=== PATIENT | female | born 1945 | race Caucasian/White ===

== ENCOUNTER 2019-09-04 20:34 | Inpatient (IN) | payer MEDICARE, SELFPAY ==
[2019-09-04 20:52] VITALS: BP 136/73; PULSE 111; RESP 20; TEMP 37.1; O2SAT 96; BMI 27.4
--- NOTE | 2019-09-04 21:06 | ECG_ITS ---
Measurements Intervals [place] Rate: 88 P: 8 IN: 164 QRS: -15 QRSD: 81 T: 3 QT: 353 QTc: 427 SINUS RHYTHM LOW QRS VOLTAGE IN PRECORDIAL LEADS [QRS DEFLECTION < 1.0 mV IN CHEST LEADS] POSSIBLE ANTERIOR MYOCARDIAL INFARCTION , PROBABLY OLD [30 ms Q WAVE IN V3/V4, OR R < 0.2 mV IN V4] INFERIOR MYOCARDIAL INFARCTION , PROBABLY OLD [40+ ms Q WAVE AND/OR ST/T ABNORMALITY IN II/aVF] Compared to ECG 09/06/2018 23:23:24 Low QRS voltage now present First degree AV block no longer present Myocardial infarct finding still present Electronically Signed On 09-05-2019 11:04:56 CDT by Joo Hinojosa MD [email or web address]
--- NOTE | 2019-09-04 21:07 | CTR_ITS ---
PROCEDURE INFORMATION: Exam: CT Abdomen And Pelvis With Contrast Exam date and time: 09/04/2019 9:39 PM Age: 74 years old Clinical indication: Nausea and vomiting; Patient HX: C/O upper abd pain w n/v and fever; Additional info: Abdominal pain, fever TECHNIQUE: Imaging protocol: Computed tomography of the abdomen and pelvis with intravenous contrast. Radiation optimization: All CT scans at this facility use at least one of these dose optimization techniques: automated exposure control; mA and/or kV adjustment per patient size (includes targeted exams where dose is matched to clinical indication); or iterative reconstruction. Contrast material: VISI 320; Contrast volume: 95 ml; Contrast route: 20G; [place] [facility] [place] 2-3 [place] 10/02/2018 1:52 PM RADIATION DOSE METRICS: Total DLP: 546.67 mGy-cm FINDINGS: Lungs: Right middle lobe 3.1 mm nodule suspected. Liver: Normal. No mass. Gallbladder and bile ducts: Normal. No calcified stones. No ductal dilation. Pancreas: Normal. No ductal dilation. Spleen: Normal. No splenomegaly. Adrenals: Normal. No mass. Kidneys and ureters: Bilateral benign renal cysts no follow up necessary. Stomach and bowel: Small bowel loops appear borderline dilated to 3 cm with fluid levels likely reflecting obstruction without transition point. Diverticulosis without diverticulitis. Moderate hiatal hernia. Appendix: No evidence of appendicitis. Intraperitoneal space: Unremarkable. No free air. No significant fluid collection. Vasculature: Unremarkable. No abdominal aortic aneurysm. Lymph nodes: Unremarkable. No enlarged lymph nodes. Bladder: Unremarkable as visualized. Reproductive: Unremarkable as visualized. Bones/joints: Unremarkable. No acute fracture. Soft tissues: Unremarkable. CT/CT abdomen pelvis w con* [id number] IMPRESSION: 1. Small bowel loops appear borderline dilated to 3 cm with fluid levels likely reflecting obstruction without transition point. 2. Right middle lobe 3.1 mm nodule suspected. For patients at low risk (minimal or absent history of smoking and of other known risk factors), no routine follow-up is indicated. For patients at high risk (history of smoking or of other known risk factors), consider optional CT at 12 months. (Silvano et al., Fleischner Society, 2017) 3. Bilateral benign renal cysts no follow up necessary. 4. Diverticulosis without diverticulitis. 5. Moderate hiatal hernia. COMMENTS: Consistent with the [employer]'s Incidental Findings Committee white paper (J Am Brandy Radiol 2018): Any incidental renal lesion less than 1.0 cm or classified as too small to characterize, or any incidental cystic renal lesion characterized as simple-appearing, is likely benign. No follow-up imaging is recommended for these lesions per consensus recommendations based on imaging criteria. Radiation Dose CTDIVOL = (mGy): DLP = 546.67 (mGy-cm)
--- NOTE | 2019-09-04 21:08 | ED_ITS ---
HPI - Nausea/Vomiting/Diarrhea General: Chief complaint: Nausea/Vomiting/Diarrhea Stated complaint: upper abd pain, n/v/d Time Seen by Provider: 09/04/19 21:02 History of Present Illness: HPI Narrative: Patient is a 74-year-old female who presents today with abdominal pain and vomiting today. She is also had diarrhea. She said the abdominal pain was in the epigastric area and started this morning. She started throwing up about an hour ago. She threw up a large amount just prior to coming back to the room and said that has relieved her pain. Her only surgery is a hiatal hernia repair about 7 years ago. She had that done because she was vomiting a lot. She is otherwise pretty healthy. MD elicited complaint: nausea, vomiting, diarrhea and abdominal pain Onset (ago): day(s) (1) Associated nausea: Yes Location of pain: Epigastric Severity: severe Associated symtoms: Reports nausea; Denies change in vision, chest pain, cough, fatigue, fevers/chills, headache(s) or malaise Review of Systems General: Reports: 10 or more systems reviewed and unremarkable except in HPI and below Const: Denies: fever(s), chills, fatigue or malaise Eyes: Denies: change in vision ENMT: Denies: odynophagia Card: Denies: chest pain Resp: Reports: dyspnea (Chronic and unchanged per patient); Denies: productive cough or non-productive cough GI: Reports: abdominal pain, nausea, vomiting and diarrhea : Denies: flank pain or difficulty voiding Musc: Denies: neck pain or back pain Skin/Breast: Denies: rash Neuro: Denies: headache(s), numbness in extremities or weakness in extremities Ron/Lymph: Denies: easy bruising or easy bleeding PFSH ED PFSH: Medical History Anxiety GERD (gastroesophageal reflux disease) Hiatal hernia Hypertension Hypothyroidism Surgical History H/O breast biopsy History of repair of hiatal hernia Social History Smoking and tobacco status: never smoked Alcohol intake: never Substance/Drug Use: never Physical Exam Const: COMMON NORMALS: no acute distress, patient oriented x3, no limitations and alert GENERAL APPEARANCE: cooperative and comfortable HENMT: HEAD & SCALP: normal to inspection FACE & SINUS: normal facial exam Eye: GENERAL EYE: appearance normal, both eyes and all related structures Neck/C-Spine: COMMON NORMALS: supple, no meningeal signs and no JVD Chest: COMMONS NORMALS: normal inspection of the chest Resp: COMMON NORMALS: normal respiratory effort, No use of accessory muscles and clear to auscultation bilaterally AUSCULTATION: clear to auscultation bilaterally Cardio: COMMON NORMALS: no JVD, regular rate, regular rhythm and No murmurs present (Cardio) RATE: regular rate RHYTHM: regular rhythm GI: COMMON NORMALS: Normal to inspection, nondistended, normoactive bowel sounds present, Soft to palpation and non-tender INSPECTION: Yes normal to inspection AUSCULTATION: Yes normoactive bowel sounds PALPATION: Yes Soft to palpation Back/Pelvis: COMMON NORMALS: thoracic and lumbar spine normal to inspection Extremity: COMMON NORMALS: normal to inspection Neuro: COMMON NORMALS: patient oriented x3, moves all extremities, no focal motor deficits and no sensory deficits noted SENSORIUM/ORIENTATION: Yes alert MENINGEAL SIGNS: Yes no meningeal signs Psych: COMMON NORMALS: mental status grossly normal, cooperative and normal affect Skin: COMMON NORMALS: no rashes or lesions noted and turgor normal GENERAL SKIN EXAM: no rashes or lesions noted and turgor normal Course ED course: Patient was found to have a small bowel obstruction on CT. She will be admitted to the hospitalist for further management. NG tube will be placed in the ED. Vital Signs: Vital signs: Vital Signs Temperature 99.2 F 09/06/19 12:49 Pulse Rate 75 09/06/19 12:49 Respiratory Rate 18 09/06/19 12:49 Blood Pressure 126/76 09/06/19 12:49 Pulse Oximetry 94 09/06/19 12:49 MDM - Nausea/Vomiting/Diarrhea Lab Data: Labs: Lab Results 09/04/19 09/04/19 09/04/19 Range/Units 21:07 21:07 21:07 WBC 17.6 H (4.0-10.0) 10^3/ uL RBC 5.06 (4.1-5.3) 10^6/u L Hgb 14.3 (11.5-15.3) g/dL Hct 43.0 (37.0-47.0) % MCV 85.0 (81-99) fL MCH 28.3 (28.0-34.0) pg MCHC 33.3 (30.0-36.0) g/dL RDW 13.5 (12.1-15.1) % Plt Count 454 H (130-400) 10^3/c mm MPV 8.8 (7.4-10.4) fL Neut % (Auto) 64.6 % Lymph % (Auto) 26.3 % [place] % (Auto) 7.0 % Eos % (Auto) 1.0 % Baso % (Auto) 0.5 % Neut # (Auto) 11.4 H (1.8-7.7) 10^3/u L Lymph # (Auto) 4.6 (0.8-4.8) 10^3/u L [place] # (Auto) 1.2 H (0.2-0.9) 10^3/u L Eos # (Auto) 0.2 (0.0-0.8) 10^3/u L Baso # (Auto) 0.1 (0.0-0.1) 10^3/u L Nucleated RBC % (a uto) 0 % Nucleated RBCs # 0.0 /100WBC Sodium 133 L (136-145) mmol/L Potassium 3.4 L (3.5-5.1) mmol/L Chloride 98 (98-107) mmol/L Carbon Dioxide 15 L (22-29) mmol/L Anion Gap 23.4 H (5-19) BUN 10 (8-23) mg/dL Creatinine 1.0 H (0.5-0.9) mg/dL Glucose 131 H (65-115) mg/dL Calculated Osmolal ity 274 L (285-295) mOsm/k g Lactate (0.5-2.2) mmol/L Calcium 9.5 (8.5-10.5) mg/dL Total Bilirubin 0.5 (0.15-1.2) mg/dL AST 22 (0-32) U/L ALT 16 (0-33) U/L Alkaline Phosphata se 148 H (35-105) IU/L Total Protein 7.6 (6.6-8.7) g/dL Albumin 4.3 (3.5-5.2) g/dL Globulin 3.3 (1.3-4.6) g/dL Lipase 47 (13-60) U/L TSH 1.48 (0.27-4.20) uIU/ mL 09/03/ Range/Units 21:23 WBC (4.0-10.0) 10^3/ uL RBC (4.1-5.3) 10^6/u L Hgb (11.5-15.3) g/dL Hct (37.0-47.0) % MCV (81-99) fL MCH (28.0-34.0) pg MCHC (30.0-36.0) g/dL RDW (12.1-15.1) % Plt Count (130-400) 10^3/c mm MPV (7.4-10.4) fL Neut % (Auto) % Lymph % (Auto) % [place] % (Auto) % Eos % (Auto) % Baso % (Auto) % Neut # (Auto) (1.8-7.7) 10^3/u L Lymph # (Auto) (0.8-4.8) 10^3/u L [place] # (Auto) (0.2-0.9) 10^3/u L Eos # (Auto) (0.0-0.8) 10^3/u L Baso # (Auto) (0.0-0.1) 10^3/u L Nucleated RBC % (a uto) % Nucleated RBCs # /100WBC Sodium (136-145) mmol/L Potassium (3.5-5.1) mmol/L Chloride (98-107) mmol/L Carbon Dioxide (22-29) mmol/L Anion Gap (5-19) BUN (8-23) mg/dL Creatinine (0.5-0.9) mg/dL Glucose (65-115) mg/dL Calculated Osmolal ity (285-295) mOsm/k g Lactate 2.5 H (0.5-2.2) mmol/L Calcium (8.5-10.5) mg/dL Total Bilirubin (0.15-1.2) mg/dL AST (0-32) U/L ALT (0-33) U/L Alkaline Phosphata se (35-105) IU/L Total Protein (6.6-8.7) g/dL Albumin (3.5-5.2) g/dL Globulin (1.3-4.6) g/dL Lipase (13-60) U/L TSH (0.27-4.20) uIU/ mL Discharge Plan Discharge Admit Provider: Tigist Lo Condition: Stable Discharge Orders: Discharge Order (Routine); Ordered 09/06/19 Ordered By: Kwadwo Reno Discharge Diet: Advance as tolerated Discharge Activity: Resume usual activity Discharge Date/Time: 09/05/19 00:19 Coding Level of Care Code 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
[2019-09-04 21:18] LABS: Basophils # 0.1 10^3/uL (0.0-0.1); Basophils % 0.5 %; Eosinophils # 0.2 10^3/uL (0.0-0.8); Hemoglobin 14.3 g/dL (11.5-15.3); Lymphocytes # 4.6 10^3/uL (0.8-4.8); Lymphocytes % 26.3 %; Mean Corpuscular HGB Conc 33.3 g/dL (30.0-36.0); Mean Corpuscular Hemoglobin 28.3 pg (28.0-34.0); Mean Platelet Volume 8.8 fL (7.4-10.4); Monocytes # 1.2 10^3/uL (0.2-0.9); Neutrophils # 11.4 10^3/uL (1.8-7.7); Neutrophils % 64.6 %; Nucleated Red Blood Cells % 0 %; Platelet Count 454 10^3/cmm (130-400); Red Blood Count 5.06 10^6/uL (4.1-5.3); Red Cell Distribution Width 13.5 % (12.1-15.1); White Blood Count 17.6 10^3/uL (4.0-10.0)
[2019-09-04] MEDS: ondansetron 2 mg/ML SDV 2 mL 4 MG IVP (21:26)
[2019-09-04] MEDS: sodium chloride 0.9% 500 ML 999 ML IV (21:28)
[2019-09-04 21:29] VITALS: BP 136/73; PULSE 95; RESP 18; O2SAT 97
[2019-09-04 21:33] LABS: Alanine Aminotransferase 16 U/L (0-33); Albumin Level 4.3 g/dL (3.5-5.2); Alkaline Phosphatase 148 IU/L (35-105); Anion Gap 23.4 (5-19); Aspartate Amino Transferase 22 U/L (0-32); Blood Urea Nitrogen 10 mg/dL (8-23); Calcium 9.5 mg/dL (8.5-10.5); Carbon Dioxide 15 mmol/L (22-29); Chloride 98 mmol/L (98-107); Globulin 3.3 g/dL (1.3-4.6); Glucose 131 mg/dL (65-115); Lipase 47 U/L (13-60); Osmolality Calculated 274 mOsm/kg (285-295); Potassium 3.4 mmol/L (3.5-5.1); Sodium 133 mmol/L (136-145); Total Bilirubin 0.5 mg/dL (0.15-1.2); Total Protein 7.6 g/dL (6.6-8.7)
[2019-09-04 21:47] LABS: Lactate (Lactic Acid level) 2.5 mmol/L (0.5-2.2)
[2019-09-04] MEDS: iodixanol 320 mg/mL 100mL Btl IV (22:10)
[2019-09-04 22:25] VITALS: RESP 18
[2019-09-04] MEDS: morphine 4 mg/mL SDV 1 mL IVP (22:25)
[2019-09-04 23:04] VITALS: BP 155/95; PULSE 80; RESP 19; O2SAT 97
[2019-09-05] VITALS (9 sets, daily range): BP systolic 112–170; BP diastolic 66–88; PULSE 78–102; RESP 18–20; TEMP 36.6–37.4; O2SAT 92–96
--- NOTE | 2019-09-05 00:16 | P.HP_ITS ---
Providers/Chief Complaint Admitting Physician: Tigist Lo MD Primary Care Provider: Alfred Chambers MD Chief Complaint: upper abd pain, n/v/d History of Present Illness Rosalinda Burks is a 74 year old female with a past medical history of hypertension, GERD, hypothyroidism that presented to the emergency department today with c/o cramping abdominal pain, nausea , vomting and multiple episodes of diarrhea that started on the morning of 09/04/19. She reports being in her suual state of health when she went to bed the night prior. She had broccoli and carrots for dinner at home on dinner the prior night. No c/o fever. She has been able to tolerate po intake intermittently through the day. Labs in [facility] ER showed leukocytosis, elevated lactate of 2.5, mild chronic ALp elevation but otherwise normal LFTs, cr 1.0. Lipase at 47. EKG without acute ST- T changes. Ct abdomen/pelvis w/contrast shwed dilated small bowel loops likely reflecting obstruction without transition point and Diverticulosis without diverticulitis. moderate hiatal hernia was noted. pain is relieved after getting morphine. NGT was placed. Review of Systems General: Reports: 10 or more systems reviewed and unremarkable except in HPI and below Const: Denies: fever(s), chills or body aches Eyes: Denies: change in vision, blurry vision or photophobia ENMT: Denies: throat pain, enlarged tonsils, odynophagia, hoarseness or nasal congestion Card: Denies: chest pain, palpitations, irregular heart rhythm, edema, swelling of feet/ankles, lightheadedness, pre-syncope, dyspnea on exertion or orthopnea Resp: Denies: dyspnea, productive cough, non-productive cough, wheezing, stridor, pain on inspiration, change in phlegm color, hemoptysis or chest congestion GI: Reports: abdominal pain, nausea and vomiting; Denies: hematemesis, coffee ground emesis, dysphagia, heartburn, diarrhea, constipation, GI cramping, change in stool character, hematochezia or melena : Denies: flank pain, difficulty voiding, dysuria, urinary frequency, urinary urgency, urinary hesitancy or hematuria Musc: Denies: neck pain, back pain, extremity pain, joint swelling, joint warmth or deformity Neuro: Denies: headache(s), numbness in extremities, weakness in extremities, sensory changes, difficulty walking, frequent falls, dizziness, vertigo, behavioral changes, Slurred speech present or seizure-like activity Psych: Denies: anxiety, depression, suicidal ideation or homicidal ideation Endo: Denies: polyuria, polydipsia, tired all the time, cold intolerance or hot flashes Ron/Lymph: Denies: easy bruising or easy bleeding Medications/Allergies Home Medications Medication Instructions Recorded Confirmed Last Taken Type amlodipine 5 mg PO DAILY 09/05/19 09/05/19 09/04/19 08:00 History escitalopram oxalate 20 mg PO DAILY 09/05/19 09/05/19 09/04/19 08:00 History folic acid 1 mg PO DAILY 09/05/19 09/05/19 Unknown History levothyroxine [Synthroid] 09/05/19 09/05/19 Unknown History levothyroxine [Synthroid] See Rx Instructions .ROUTE .COMPLEX 09/05/19 09/05/19 09/04/19 08:00 History lorazepam 09/05/19 09/05/19 Unknown History metoclopramide HCl 10 mg PO Q6H PRN 09/05/19 09/05/19 Unknown History omeprazole 20 mg PO DAILY 09/05/19 09/05/19 09/04/19 08:00 History valsartan 320 mg PO DAILY 09/05/19 09/05/19 09/04/19 08:00 History Allergies Allergy/AdvReac Type Severity Reaction Status Date / Time No Known Allergies Allergy Verified 09/04/19 21:01 PFSH Acute PFSH: Medical History Anxiety GERD (gastroesophageal reflux disease) Hiatal hernia Hypertension Hypothyroidism Surgical History H/O breast biopsy History of repair of hiatal hernia Social History Smoking and tobacco status: never smoked Alcohol intake: never Substance/Drug Use: never Vitals/I&O/Wt Last Vital Signs Temp 98.4 F 09/05/19 00:00 Pulse 78 09/05/19 00:00 Resp 20 H 09/05/19 00:00 BP 170/88 09/05/19 00:00 Pulse Ox 96 09/05/19 00:00 Weight last 48 hrs Weight 68.039 kg Physical Exam Narrative: EXAM NARRATIVE: GEN: Awake, alert and oriented, no acute distress CVS: S1S@ N RS: CTA B/L except crackles over RUL Abd: Soft, nt/nd , bs+ WHEEL LACER AND TRUER: no focal neuro deficits Data : 09/04/19 21:07 09/04/19 21:07 A&P Assessment and plan (1) SBO (small bowel obstruction): Status: Acute (2) Diarrhea: Status: Acute (3) Anxiety: Status: Acute (4) Hypertension: Status: Acute (5) Hypothyroidism: Status: Acute (6) Hypokalemia: Status: Acute (7) Hyponatremia: Status: Acute Additional A&P Information Admit to med/durg 1. Small bowel obstruction without clear transition point Ct abdomen does not show any evident masses Unclear cause, may be ileus related to viral vs bacterial enetritis elevated WBC with elevated lactate may represent an infectious process empiric ceftriaxone and metronidazole Check C diff,enteric PCR panel, blood culture in am Trend lactate, CT abomen without any signs of bowel ischemia at present time NGT placed in ER, to low intermittent suction prn zofran/reglan for nausea and vomiting, prn morphine for pain Patient appears clinically dehydrated , NS with 20meq KCL @75cc/hr no h/o recent colonoscopy 2. HTN: Since patient is currently NPO with NGT in place, hold po amlodipine and switch to iv hydralazine 3. hypothyroidism: levothyroxine to resume when tolerating po intake 4. hypokalemia, replete with IVF 5. Hyponatremia likely 2/2 dehydration Full code Dvt ppx: lovenox Attestations Medical Necessity Statement*: >2 midnight for management of SBO, iv hydration Coding Level of Care Code Acute Project Archivist for [facility] Fw Diagnoses SBO (small bowel obstruction) K56.609 Diarrhea R19.7 Anxiety F41.9 Hypertension I10 Hypothyroidism E03.9 Hypokalemia E87.6 Hyponatremia E87.1
[2019-09-05] MEDS: cefTRIAXone 1,000 MG in sodium chloride 0.9% (plus) 50 ML 100 MG IV ×2 (01:56→23:59)
[2019-09-05] MEDS: sodium chloride 0.9% 1,000 ML 75 ML IV (01:56)
[2019-09-05] MEDS: enoxaparin 30 mg/0.3 mL Syringe SUBCUT ×2 (01:56→23:54)
[2019-09-05] MEDS: famotidine 20 mg/2 mL INJ IVP ×2 (01:57→13:13)
[2019-09-05] MEDS: ondansetron 2 mg/ML SDV 2 mL 4 MG IVP (01:59)
[2019-09-05] MEDS: morphine 4 mg/mL SDV 1 mL 2 MG IVP ×2 (02:02→23:52)
[2019-09-05 02:17] LABS: Thyroid Stimulating Hormone 1.48 uIU/mL (0.27-4.20)
[2019-09-05] MEDS: metroNIDAZOLE IV 500 MG/100 ML PREMIX 100 MG IV ×3 (03:03→18:20)
[2019-09-05] MEDS: lidocaine 1% INJ 20 mL 5 ML IV (05:17)
[2019-09-05] MEDS: metoclopramide 5 mg/mL SDV 2 mL 10 MG IVP (05:35)
[2019-09-05 05:59] LABS: Troponin T (5th) Once 6 ng/mL (0-10)
[2019-09-05 06:02] LABS: Alanine Aminotransferase 13 U/L (0-33); Alkaline Phosphatase 134 IU/L (35-105); Aspartate Amino Transferase 18 U/L (0-32); Blood Urea Nitrogen 9 mg/dL (8-23); Calcium 8.4 mg/dL (8.5-10.5); Carbon Dioxide 21 mmol/L (22-29); Chloride 101 mmol/L (98-107); Globulin 2.5 g/dL (1.3-4.6); Glucose 127 mg/dL (65-115); Magnesium 2.3 mg/dL (1.7-2.3); Osmolality Calculated 278 mOsm/kg (285-295); Sodium 135 mmol/L (136-145); Total Bilirubin 0.4 mg/dL (0.15-1.2); Total Protein 6.5 g/dL (6.6-8.7)
[2019-09-05 06:03] LABS: Lactic Sepsis W/Reflex 0.9 mmol/L (0.5-2.2)
--- NOTE | 2019-09-05 11:03 | PC.NURSE ---
Patient accidentally pulled her NG tube out while using to bathroom. Patient states, I really don't think I need it anymore anyway. It made me all better. I no longer have nausea or pain. I am hoping the doctor will let me go home today. Patient is A&Ox3. Dr. Gale notified
--- NOTE | 2019-09-05 17:04 | PM.PN ---
Subjective Subjective: Interval history: She is doing better, however, has not had a bowel movement or pass gas. Diarrhea appears to have stopped. Has not had vomiting. NG tube says accidentally fell out , when she went to the bathroom in the morning. She has tolerated sips and chips after that. Feels she wants to have a glass of water. Vitals/I&O/Wt Last Vital Signs Temp 99.4 F 09/05/19 15:12 Pulse 86 09/05/19 15:12 Resp 18 09/05/19 15:12 BP 155/70 09/05/19 15:12 Pulse Ox 93 09/05/19 15:12 09/05/19 09/05/19 09/05/19 06:59 14:59 22:59 Intake Total 100 / 100 100 / 100 Output Total 100 / 100 300 / 300 Balance 0 / 0 -200 / -200 Weight last 48 hrs Weight 68.039 kg Physical Exam Const: COMMON NORMALS: no acute distress and patient oriented x3 HENMT: COMMON NORMALS: oropharynx normal Neck/C-Spine: COMMON NORMALS: no JVD Resp: COMMON NORMALS: normal respiratory effort and clear to auscultation bilaterally AUSCULTATION: clear to auscultation bilaterally Cardio: COMMON NORMALS: no JVD, regular rhythm, S1 normal heart sound present, S2 normal heart sound present and No murmurs present (Cardio) RHYTHM: regular rhythm HEART SOUNDS: S1 normal heart sound present and S2 normal heart sound present GI: COMMON NORMALS: Soft to palpation and non-tender AUSCULTATION: Yes Absent bowel sounds PALPATION: Yes Soft to palpation Extremity: COMMON NORMALS: no joint enlargement and no pedal edema Neuro: COMMON NORMALS: patient oriented x3 and moves all extremities Skin: COMMON NORMALS: no rashes or lesions noted GENERAL SKIN EXAM: no rashes or lesions noted Data : 09/04/19 21:07 09/05/19 05:25 A&P Assessment and plan (1) SBO (small bowel obstruction): NG tube spontaneously came out this morning. Since then she did not want to have it reinserted, and actually has felt better. No further vomiting. Diarrhea appears to have stopped. At the same time, still she is not passing flatus. On auscultation her bowel sounds are very hypoactive or absent. She does not have significant eructation. She has no abdominal pain. There was no transition point noted on imaging, and so surgery is not involved at this time. She is wanting to try clear liquids. For now continue IV hydration. Will decrease rate. Status: Acute (2) Diarrhea: This appears to have resolved. We were not able to obtain stool studies. Told her if she has further diarrhea to notify the nurse to collect a sample. Status: Acute (3) Anxiety: Status: Acute (4) Hypertension: Status: Acute (5) Hypothyroidism: Continue levothyroxine. TSH is normal. Status: Acute (6) Hypokalemia: Given replacement. Status: Acute (7) Hyponatremia: Improving Status: Acute Attestations Medical Necessity Statement*: Continue admission for assessment management of ileus, bowel pseudoobstruction, gastroenteritis. Coding Level of Care Code Acute Border Machine Operator for g Fwd Diagnoses SBO (small bowel obstruction) K56.609 Diarrhea R19.7 Anxiety F41.9 Hypertension I10 Hypothyroidism E03.9 Hypokalemia E87.6 Hyponatremia E87.1
[2019-09-05] MEDS: sodium chloride 0.9% 1,000 ML 50 ML IV (18:20)
[2019-09-06] VITALS: BP 147/77; PULSE 82; RESP 24; TEMP 37.2; O2SAT 93
[2019-09-06] MEDS: famotidine 20 mg/2 mL INJ IVP (03:23)
[2019-09-06] MEDS: metroNIDAZOLE IV 500 MG/100 ML PREMIX 100 MG IV ×2 (03:23→11:01)
[2019-09-06 04:00] VITALS: BP 146/64; PULSE 77; RESP 20; TEMP 37.2; O2SAT 94
[2019-09-06 06:29] LABS: Basophils % 0.3 %; Eosinophils # 0.3 10^3/uL (0.0-0.8); Eosinophils % 3.3 %; Hematocrit 36.5 % (37.0-47.0); Hemoglobin 11.8 g/dL (11.5-15.3); Lymphocytes # 3.1 10^3/uL (0.8-4.8); Lymphocytes % 34.4 %; Mean Corpuscular HGB Conc 32.3 g/dL (30.0-36.0); Mean Corpuscular Hemoglobin 28.1 pg (28.0-34.0); Mean Corpuscular Volume 86.9 fL (81-99); Mean Platelet Volume 8.7 fL (7.4-10.4); Monocytes # 0.7 10^3/uL (0.2-0.9); Monocytes % 7.8 %; Neutrophils # 4.9 10^3/uL (1.8-7.7); Neutrophils % 53.8 %; Nucleated Red Blood Cells % 0 %; Platelet Count 325 10^3/cmm (130-400); Red Cell Distribution Width 13.8 % (12.1-15.1); White Blood Count 9.1 10^3/uL (4.0-10.0)
[2019-09-06 06:53] LABS: Alanine Aminotransferase 11 U/L (0-33); Albumin Level 3.8 g/dL (3.5-5.2); Alkaline Phosphatase 102 IU/L (35-105); Anion Gap 15.2 (5-19); Aspartate Amino Transferase 19 U/L (0-32); Blood Urea Nitrogen 6 mg/dL (8-23); Calcium 8.3 mg/dL (8.5-10.5); Carbon Dioxide 22 mmol/L (22-29); Chloride 103 mmol/L (98-107); Globulin 2.3 g/dL (1.3-4.6); Glucose 94 mg/dL (65-115); Osmolality Calculated 280 mOsm/kg (285-295); Potassium 3.2 mmol/L (3.5-5.1); Sodium 137 mmol/L (136-145); Total Bilirubin 0.5 mg/dL (0.15-1.2); Total Protein 6.1 g/dL (6.6-8.7)
[2019-09-06 07:20] VITALS: BP 158/82; PULSE 74; RESP 18; TEMP 37.1; O2SAT 92
[2019-09-06] MEDS: bisacodyl 10 mg Supp PR (11:01)
[2019-09-06] MEDS: sodium chloride 0.9% 1,000 ML 50 ML IV (11:01)
[2019-09-06 11:09] VITALS: BP 126/76; PULSE 75; RESP 18; TEMP 37.3; O2SAT 94
--- NOTE | 2019-09-06 12:40 | PM.DCS ---
Discharge Providers Date of Admission: 09/04/19 22:41 Date of Discharge: September 06, 2019 Attending Provider at Admission: Tigist Lo MD Attending Provider at Discharge: Kwadwo Reno MD Primary Care Provider: Alfred Chambers MD Diagnoses at Discharge Discharge Diagnosis (1) SBO (small bowel obstruction): Status: Acute Problem details: Resolved (2) Diarrhea: Status: Acute (3) Anxiety: Status: Acute (4) Hypertension: Status: Acute (5) Hypothyroidism: Status: Acute (6) Hypokalemia: Status: Acute (7) Hyponatremia: Status: Acute Reason for Visit Reason for Visit: Reason For Visit: upper abd pain, n/v/d Hospital Course Hospital Course: Rosalinda presented to the hospital with a history of diarrhea, then vomiting and no stool. CT scan was consistent with possible partial small bowel obstruction. Leukocytosis was noted. She was placed on Rocephin, Flagyl, and an NG was placed. While in the hospital her NG fell out. Patient was symptomatically improved and started on a clear liquid diet. By August 06 she had no abdominal pain, had had a bowel movement, was eating a full liquid diet without discomfort and was hungry for more. She wished to go home. It was thought her clinical scenario was likely consistent with partial small bowel obstruction which is now resolved. She is to follow-up with her primary care provider, for any additional studies she might need and to review when she last had an EGD and colonoscopy. Hyponatremia that was present on admission was resolved. Hypokalemia was supplemented. Leukocytosis had resolved. Physical Exam Narrative: EXAM NARRATIVE: General exam no apparent distress Cardiovascular regular in rhythm without murmur Lungs clear Abdomen is soft with positive bowel sounds Extremities no cyanosis clubbing or edema Discharge Data Data Completed and Pending: Completed Studies During Hospitalization Category Date Time Status CT abdomen pelvis w con* [id number] Urge nt Cat Scan 09/04/19 21:07 Completed Pending at discharge Category Date Time Status Blood Culture AM LABS Lab 09/06/19 06:03 Results Clostridium Diffi cile BY PCR Routin e Lab 09/05/19 00:11 Uncollected Complete Blood Co unt w/Auto AM LABS Lab 09/07/19 04:00 Ordered Complete Blood Co unt w/Auto AM LABS Lab 09/08/19 04:00 Ordered Comprehensive Met abolic Panel AM LA BS Lab 09/07/19 04:00 Ordered Enteric Bacterial Panel by PCR Rout ine Lab 09/05/19 00:11 Uncollected Urinalysis Stat Lab 09/04/19 23:04 Ordered Labs from last 24 hours 09/06/19 09/06/19 06:03 06:03 WBC 9.1 RBC 4.20 Hgb 11.8 Hct 36.5 L MCV 86.9 MCH 28.1 MCHC 32.3 RDW 13.8 Plt Count 325 MPV 8.7 Neut % (Auto) 53.8 Lymph % (Auto) 34.4 [place] % (Auto) 7.8 Eos % (Auto) 3.3 Baso % (Auto) 0.3 Neut # (Auto) 4.9 Lymph # (Auto) 3.1 [place] # (Auto) 0.7 Eos # (Auto) 0.3 Baso # (Auto) 0.0 Nucleated RBC % (a uto) 0 Nucleated RBCs # 0.0 Sodium 137 Potassium 3.2 L Chloride 103 Carbon Dioxide 22 Anion Gap 15.2 BUN 6 L Creatinine 0.7 Glucose 94 Calculated Osmolal ity 280 L Calcium 8.3 L Total Bilirubin 0.5 AST 19 ALT 11 Alkaline Phosphata se 102 Total Protein 6.1 L Albumin 3.8 Globulin 2.3 Vitals: Last Vital Signs Temp 99.2 F 09/06/19 11:09 Pulse 75 09/06/19 11:09 Resp 18 09/06/19 11:09 BP 126/76 09/06/19 11:09 Pulse Ox 94 09/06/19 11:09 Discharge Plan Discharge Patient Disposition: Home, Self-Care Condition: Stable Prescriptions: Continued valsartan 320 mg tablet 320 mg PO DAILY RF: 0 amlodipine 5 mg Tablet 5 mg PO DAILY RF: 0 escitalopram oxalate 20 mg Tablet 20 mg PO DAILY RF: 0 metoclopramide HCl 10 mg Tablet 10 mg PO Q6H PRN (Reason: Nausea) RF: 0 omeprazole 20 mg capsule,delayed release(DR/EC) 20 mg PO DAILY RF: 0 Synthroid 75 mcg tablet See Rx Instructions .ROUTE .COMPLEX RF: 0 lorazepam 0.5 mg tablet 0.5 mg PO TID PRN (Reason: Anxiety) RF: 0 folic acid 1 mg tablet 1 mg PO DAILY RF: 0 Discharge Orders: Discharge Order (Routine); Ordered 09/06/19 Ordered By: Kwadwo Reno Referrals: Alfred Chambers MD [Primary Care Provider] - 4-7 days Discharge Diet: Advance as tolerated Discharge Activity: Resume usual activity Activity Restrictions/Additional Instructions: Take all medicine as prescribed. Follow-up with your primary care provider. 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
[2019-09-06 12:49] VITALS: BP 126/76; PULSE 75; RESP 18; TEMP 37.3; O2SAT 94
== END 2019-09-06 13:36 | disposition home or self-care (01) | DRG 389 ==
LOC: ER 21:02 → MEDSURG 23:00
PROVIDERS: Emergency Medicine; Admitting Provider Student in an Organized Health Care Education/Training Program; PCP Family Medicine; Visit Provider Internal Medicine
DX: K56.600 Partial intestinal obstruction, unspecified as to cause (principal); E87.1 Hypo-osmolality and hyponatremia; I10 Essential (primary) hypertension; K21.9 Gastro-esophageal reflux disease without esophagitis; E03.9 Hypothyroidism, unspecified; K57.90 Diverticulosis of intestine, part unspecified, without perforation or abscess without bleeding; K44.9 Diaphragmatic hernia without obstruction or gangrene; F41.9 Anxiety disorder, unspecified; E87.6 Hypokalemia; E86.0 Dehydration
CPT/HCPCS: 12345; 36415; 74177; 80053; 83605; 83690; 83735; 84443; 84484; 85025; 87040; 93005; 93010; 96372; 96375; 99283; J0696; J1650; J2001; J2270; J2405; J2765; J3480; J3490; J7030; J7040; Q9967; S0030

== ENCOUNTER 2021-05-22 17:45 | Emergency (ER) | payer MEDICARE, SELFPAY ==
[2021-05-22 17:54] VITALS: BP 140/82; PULSE 89; RESP 16; TEMP 36.6; O2SAT 96; BMI 27.4
--- NOTE | 2021-05-22 18:05 | CTR_ITS ---
PROCEDURE INFORMATION: Exam: CT Head Without Contrast Exam date and time: 05/22/2021 6:05 PM Age: 76 years old Clinical indication: Pain; Walking, difficulty and weakness, extremity; Right; Headache; Additional info: R facial deficits TECHNIQUE: Imaging protocol: Computed tomography of the head without contrast. Sagittal and coronal reformatted images were created and reviewed. Radiation optimization: All CT scans at this facility use at least one of these dose optimization techniques: automated exposure control; mA and/or kV adjustment per patient size (includes targeted exams where dose is matched to clinical indication); or iterative reconstruction. COMPARISON: No relevant prior studies available. RADIATION DOSE METRICS: Total DLP (mGy-cm): 755.73 FINDINGS: Brain: No acute intracranial hemorrhage. No acute infarct. No intra-axial or extra-axial masses. Collier-white matter differentiation is preserved. No cerebral edema. No extra-axial fluid collections. No midline shift. No evidence for Chiari 1 malformation. Mild atrophy of the brain parenchyma. Mildly decreased attenuation in the deep white matter, consistent with mild chronic microangiopathic change. Cerebral ventricles: No hydrocephalus. Paranasal sinuses: Visualized paranasal sinuses are clear. Mastoid air cells: Visualized mastoid air cells are clear. Orbital cavity: No acute abnormality in the visualized orbits. Vasculature: Mild atherosclerotic changes in the visualized arteries. Bones/joints: No acute fracture. Soft tissues: No acute abnormality of the extracranial soft tissues. CT/CT head wo con* [id number] IMPRESSION: 1. No acute abnormality of the brain. 2. Mild atrophy of the brain parenchyma. 3. Mild chronic white matter microangiopathic change. 4. Incidental/nonacute findings are listed in the report.
--- NOTE | 2021-05-22 20:09 | CTR_ITS ---
PROCEDURE INFORMATION: Exam: CT Angiography Head With Contrast, Arteriography Exam date and time: 05/22/2021 8:09 PM Age: 76 years old Clinical indication: Numbness and speech disturbance; Patient HX: C/O RT facial droop with slurred speech since last night. History of TIA. ; Additional info: CVA TECHNIQUE: Imaging protocol: Computed tomography angiography of the head with contrast. Exam focused on the arteries. 3D rendering (Not supervised by radiologist): MIP and/or 3D reconstructed images were created by the technologist. Radiation optimization: All CT scans at this facility use at least one of these dose optimization techniques: automated exposure control; mA and/or kV adjustment per patient size (includes targeted exams where dose is matched to clinical indication); or iterative reconstruction. Contrast material: OMNI 350; Contrast volume: 95 ml; Contrast route: INTRAVENOUS (IV); COMPARISON: CT head wo con* [id number] 05/22/2021 7:39 PM RADIATION DOSE METRICS: Total DLP (mGy-cm): 1737.77 FINDINGS: ANTERIOR CIRCULATION: Right internal carotid artery: Mild calcified plaque at the cavernous segment. No occlusion, thrombosis, stenosis, extravasation, dissection, or aneurysm. Right middle cerebral artery: Noncalcified plaque at the origin with 20% stenosis. No occlusion, thrombosis, extravasation, dissection, or aneurysm. Right anterior cerebral artery: Unremarkable. No occlusion, thrombosis, stenosis, extravasation, dissection, or aneurysm. Anterior communicating artery: The anterior communicating artery is unremarkable. Left internal carotid artery: Mild calcified plaque at the cavernous segment. No occlusion, thrombosis, stenosis, extravasation, dissection, or aneurysm. Left middle cerebral artery: Unremarkable. No occlusion, thrombosis, stenosis, extravasation, dissection, or aneurysm. Left anterior cerebral artery: Unremarkable. No occlusion, thrombosis, stenosis, extravasation, dissection, or aneurysm. POSTERIOR CIRCULATION: Right vertebral artery: Unremarkable. No occlusion, thrombosis, stenosis, extravasation, dissection, or aneurysm. Left vertebral artery: Unremarkable. No occlusion, thrombosis, stenosis, extravasation, dissection, or aneurysm. Basilar artery: Unremarkable. No occlusion, thrombosis, stenosis, extravasation, dissection, or aneurysm. Right posterior cerebral artery: Unremarkable. No occlusion, thrombosis, stenosis, dissection, or aneurysm. Left posterior cerebral artery: Unremarkable. No occlusion, thrombosis, stenosis, extravasation, dissection, or aneurysm. Right posterior communicating artery: The right posterior communicating artery is not visualized. The right posterior communicating artery may be congenitally absent, or may be too small for the resolution capabilities of this study. Left posterior communicating artery: The left posterior communicating artery is not visualized. The left posterior communicating artery may be congenitally absent, or may be too small for the resolution capabilities of this study. Brain: There is a small calcified meningioma over the left frontal lobe this measures 5.2 x 5.6 mm. Cerebral ventricles: No ventriculomegaly. Orbital cavity: Globes and lenses, extraocular muscles, and optic nerves are intact bilaterally. No acute intraorbital abnormality. Bones/joints: Unremarkable. No acute fracture. Mastoid air cells: Mastoid air cells are clear bilaterally. Soft tissues: Unremarkable. Paranasal sinuses: Paranasal sinuses are clear. PROCEDURE INFORMATION: Exam: CT Angiography Neck With Contrast Exam date and time: 05/22/2021 8:09 PM Age: 76 years old Clinical indication: Numbness and speech disturbance; Patient HX: C/O RT facial droop with slurred speech since last night. History of TIA. ; Additional info: CVA TECHNIQUE: Imaging protocol: Computed tomography angiography of the neck with contrast. 3D rendering (Not supervised by radiologist): MIP and/or 3D reconstructed images were created by the technologist. Radiation optimization: All CT scans at this facility use at least one of these dose optimization techniques: automated exposure control; mA and/or kV adjustment per patient size (includes targeted exams where dose is matched to clinical indication); or iterative reconstruction. Contrast material: OMNI 350; Contrast volume: 95 ml; Contrast route: INTRAVENOUS (IV); COMPARISON: CT head wo con* [id number] 05/22/2021 7:39 PM RADIATION DOSE METRICS: Total DLP (mGy-cm): 1737.77 FINDINGS: Right common carotid artery: Motion artifact limits evaluation of the proximal right common carotid artery. The right CCA is otherwise unremarkable.Right external carotid artery: Unremarkable. No occlusion, thrombosis, stenosis, extravasation, dissection, or aneurysm. Right internal carotid artery: Unremarkable. No occlusion, thrombosis, stenosis, extravasation, dissection, or aneurysm. Right external carotid artery: Unremarkable. No occlusion, thrombosis, stenosis, dissection, or aneurysm. Left common carotid artery: Motion artifact limits evaluation of the proximal left common carotid artery. Minimal calcified plaque at the left carotid bulb. No occlusion, thrombosis, stenosis, extravasation, dissection, or aneurysm. Left internal carotid artery: Unremarkable. No occlusion, thrombosis, stenosis, extravasation, dissection, or aneurysm. Left external carotid artery: Unremarkable. No occlusion, thrombosis, stenosis, extravasation, dissection, or aneurysm. Right vertebral artery: Unremarkable. No occlusion, thrombosis, stenosis, extravasation, dissection, or aneurysm. Left vertebral artery: Unremarkable. No occlusion, thrombosis, stenosis, extravasation, dissection, or aneurysm. Brachiocephalic artery: Unremarkable. No occlusion, thrombosis, stenosis, extravasation, dissection, or aneurysm. Subclavian arteries: Right subclavian artery is unremarkable. Motion artifact limits evaluation of the mid left subclavian artery, there is noncalcified plaque with approximate 20% stenosis of the mid left subclavian artery however. No occlusion, thrombosis, extravasation, dissection, or aneurysm. Aorta: Mild calcified plaque in the visualized aortic arch. No occlusion, thrombosis, stenosis, extravasation, dissection, or aneurysm. Lymph nodes: No lymphadenopathy. Soft tissues: No soft tissue swelling. No radiopaque foreign body. Bones/joints: Multilevel degenerative changes of varying severity in the visualized spine. Lungs: Visualized lungs are clear. CT/CT angio headneck* [id number] IMPRESSION: 1. Atherosclerotic disease. Mild stenosis at the origin of the right middle cerebral artery. No occlusion, thrombosis, extravasation, dissection, or aneurysm. 2. The posterior communicating arteries are not visualized. The posterior communicating arteries may be congenitally absent, or may be too small for the resolution capabilities of this study. 3. Incidental/nonacute findings are listed in the report. IMPRESSION: 1. Mild atherosclerotic disease. Mild stenosis in the mid left subclavian artery. Motion artifact limits evaluation of the proximal right and left common carotid arteries and the mid left subclavian artery. Otherwise, no occlusion, thrombosis, extravasation, dissection, or aneurysm. 2. Incidental/nonacute findings are listed in the report. REFERENCES: NASCET CRITERIA. The degree of internal carotid artery stenosis is based on NASCET criteria. Normal is no stenosis. Mild is less than 50% stenosis. Moderate is 50-69% stenosis. Severe is 70% to 99% stenosis. Total occlusion is no detectable patent lumen.
--- NOTE | 2021-05-22 20:10 | ECG_ITS ---
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 Measurements Intervals [place] Rate: 78 P: 54 ME: 167 QRS: -24 QRSD: 90 T: 53 QT: 376 QTc: 431 Interpretive Statements SINUS RHYTHM BORDERLINE LEFT AXIS DEVIATION [QRS AXIS < -20] POSSIBLE RIGHT VENTRICULAR CONDUCTION DELAY [RSR (QR) IN V1/V2] No previous ECG available for comparison Electronically Signed On 05-22-2021 20:53:30 SEAM PRESSER by Mateus Matos M.D. [email or web address]/store/OM/[id number]
[2021-05-22 20:47] LABS: Basophils # 0.1 10^3/uL (0.0-0.1); Basophils % 0.7 %; Eosinophils # 0.1 10^3/uL (0.0-0.8); Eosinophils % 1.1 %; Hematocrit 44.5 % (37.0-47.0); Hemoglobin 14.9 g/dL (11.5-15.3); Lymphocytes # 2.5 10^3/uL (0.8-4.8); Lymphocytes % 20.3 %; Mean Corpuscular HGB Conc 33.5 g/dL (30.0-36.0); Mean Corpuscular Hemoglobin 29.2 pg (28.0-34.0); Mean Corpuscular Volume 87.1 fl (81-99); Mean Platelet Volume 8.8 fL (7.4-10.4); Monocytes # 0.8 10^3/uL (0.2-0.9); Monocytes % 6.9 %; Neutrophils # 8.64 10^3/uL (1.8-7.7); Neutrophils % 70.6 %; Nucleated Red Blood Cells % 0 %; Platelet Count 362 10^3/cmm (130-400); Red Blood Count 5.11 10^6/uL (4.1-5.3); Red Cell Distribution Width 13.4 % (12.1-15.1); White Blood Count 12.2 10^3/uL (4.0-10.0)
--- NOTE | 2021-05-22 21:02 | W.ED.NEUROSD ---
HPI - Neuro Symptoms/Deficit General: Chief Complaint: Neuro Symptoms/Deficit Stated Complaint: Possible Stroke Time Seen by Provider: 05/22/21 19:50 Source: patient Mode of arrival: ambulatory Limitations: no limitations History of Present Illness: 76-year-old female who states that since yesterday she has been having some right-sided facial droop along with some slight difficulty walking that time.. She states that she has had TIAs in the past but never had a actual stroke that she knows of. Denies any worsening improving factors. Denies headache. She does have a dense paralysis of the right side of her face no history of Irvin's palsy in the past. She denies any headache. Patient was able to actually ambulate from the waiting room to the room without any difficulty she denies any weakness in her extremities. Associated symptoms: Deny chest pain, headache(s), nausea or vomiting Review of Systems Const: Denies: fever(s), chills, body aches or change in appetite Eyes: Denies: blurry vision or eye discomfort ENMT: Denies: throat pain or dental pain Card: Denies: chest pain Resp: Denies: dyspnea GI: Denies: abdominal pain, nausea, vomiting or diarrhea : Denies: dysuria Musc: Denies: neck pain or back pain Skin/Breast: Denies: rash Neuro: Reports: weakness in extremities and difficulty walking; Denies: headache(s) Psych: Denies: depression Ron/Lymph: Denies: easy bruising All/Imm: Denies: urticaria PFSH ED PFSH: Medical History (Updated 05/22/21 @ 22:50 by Shaniqua Newberry MD) Anxiety GERD (gastroesophageal reflux disease) Hiatal hernia Hypertension Hypothyroidism Surgical History (System 10/31/20 @ 08:41 by Anette Greco) H/O breast biopsy History of repair of hiatal hernia Social History (System 10/31/20 @ 08:41 by Anette Greco) Smoking and tobacco status: never smoked Alcohol intake: never NIH stroke score NIHSS: Level Of Consciousness - 1a: 0 Level Of Consciousness Questions - 1b: Both Correct Level Of Consciousness Commands - 1c: Both Correct Best Gaze - 2: Normal Visual Good - 3: No Visual Loss Facial Palsy - 4: Complete Paralysis Motor Arm Right - 5: No Drift Motor Arm Left - 5: No Drift Motor Leg Right - 6: No Drift Motor Leg Left - 6: No Drift Limb Ataxia - 7: Absent Sensory - 8: Normal Best Language - 9: No Aphasia Dysarthia - 10: Normal Extinction And Inattention - 11: 0 Score: Total Score: 3 Physical Exam Const: COMMON NORMALS: no acute distress, patient oriented x3 and healthy appearing HENMT: COMMON NORMALS: normocephalic and atraumatic HEAD & SCALP: normocephalic and atraumatic Eye: COMMON NORMALS: Equal, round and reactive pupils present and EOMs intact bilaterally PUPIL: Yes Equal, round and reactive pupils present Neck/C-Spine: COMMON NORMALS: full ROM and supple Chest: COMMONS NORMALS: normal inspection of the chest and normal palpation of entire chest wall Resp: COMMON NORMALS: normal respiratory effort, No retractions, No use of accessory muscles and clear to auscultation bilaterally AUSCULTATION: clear to auscultation bilaterally Cardio: COMMON NORMALS: regular rate, regular rhythm and No murmurs present (Cardio) RATE: regular rate RHYTHM: regular rhythm GI: COMMON NORMALS: Normal to inspection, nondistended, normoactive bowel sounds present, Soft to palpation, non-tender and no masses PALPATION: Yes Soft to palpation Extremity: COMMON NORMALS: normal to inspection and full ROM Neuro: COMMON NORMALS: patient oriented x3, moves all extremities and no focal motor deficits Psych: COMMON NORMALS: mental status grossly normal, Normal thought process present and cooperative THOUGHT PROCESS: Normal thought process present Skin: COMMON NORMALS: no rashes or lesions noted and no wounds GENERAL SKIN EXAM: no rashes or lesions noted Course Vital Signs: Vital signs: Vital Signs Temperature 97.8 F 05/22/21 17:54 Pulse Rate 78 05/22/21 21:58 Respiratory Rate 18 05/22/21 21:58 Blood Pressure 179/75 05/22/21 21:58 Pulse Oximetry 100 05/22/21 21:58 MDM - Neuro Symptoms/Deficit Medical Decision Making Patient presents here with a right-sided facial droop that is likely a Irvin's palsy I did offer her MRI to rule out a stroke she states that she feels fine other than the facial droop and would like to go home follow-up with her PCP. She has no other neurologic deficits she is able ambulate here she is already on aspirin she is to follow-up with PCP in 2 to 4 days return if worsening she understands agrees to plan. Lab Data : 05/22/21 20:40 05/22/21 20:[address] 05/22/21 18:05 IMPRESSION: 1. No acute abnormality of the brain. 2. Mild atrophy of the brain parenchyma. 3. Mild chronic white matter microangiopathic change. 4. Incidental/nonacute findings are listed in the report. Head/Neck CTA 05/22/21 20:09 IMPRESSION: 1. Atherosclerotic disease. Mild stenosis at the origin of the right middle cerebral artery. No occlusion, thrombosis, extravasation, dissection, or aneurysm. 2. The posterior communicating arteries are not visualized. The posterior communicating arteries may be congenitally absent, or may be too small for the resolution capabilities of this study. 3. Incidental/nonacute findings are listed in the report. IMPRESSION: 1. Mild atherosclerotic disease. Mild stenosis in the mid left subclavian artery. Motion artifact limits evaluation of the proximal right and left common carotid arteries and the mid left subclavian artery. Otherwise, no occlusion, thrombosis, extravasation, dissection, or aneurysm. 2. Incidental/nonacute findings are listed in the report. REFERENCES: NASCET CRITERIA. The degree of internal carotid artery stenosis is based on NASCET criteria. Normal is no stenosis. Mild is less than 50% stenosis. Moderate is 50-69% stenosis. Severe is 70% to 99% stenosis. Total occlusion is no detectable patent lumen. Laboratory Results WBC 12.2 10^3/uL (4.0-10.0) H 05/22/21 20:40 RBC 5.11 10^6/uL (4.1-5.3) 05/22/21 20:40 Hgb 14.9 g/dL (11.5-15.3) 05/22/21 20:40 Hct 44.5 % (37.0-47.0) 05/22/21 20:40 MCV 87.1 fl (81-99) 05/22/21 20:40 MCH 29.2 pg (28.0-34.0) 05/22/21 20:40 MCHC 33.5 g/dL (30.0-36.0) 05/22/21 20:40 RDW 13.4 % (12.1-15.1) 05/22/21 20:40 Plt Count 362 10^3/cmm (130-400) 05/22/21 20:40 MPV 8.8 fL (7.4-10.4) 05/22/21 20:40 Neut % (Auto) 70.6 % 05/22/21 20:40 Lymph % (Auto) 20.3 % 05/22/21 20:40 [place] % (Auto) 6.9 % 05/22/21 20:40 Eos % (Auto) 1.1 % 05/22/21 20:40 Baso % (Auto) 0.7 % 05/22/21 20:40 Neut # (Auto) 8.64 10^3/uL (1.8-7.7) H 05/22/21 20:40 Lymph # (Auto) 2.5 10^3/uL (0.8-4.8) 05/22/21 20:40 [place] # (Auto) 0.8 10^3/uL (0.2-0.9) 05/22/21 20:40 Eos # (Auto) 0.1 10^3/uL (0.0-0.8) 05/22/21 20:40 Baso # (Auto) 0.1 10^3/uL (0.0-0.1) 05/22/21 20:40 Nucleated RBC % (auto) 0 % 05/22/21 20:40 Nucleated RBCs # 0.0 /100WBC 05/22/21 20:40 PT 12.80 SECONDS (12.1-14.9) 05/22/21 20:45 INR 0.93 (0.8-1.2) 05/22/21 20:45 Sodium 137 mmol/L (136-145) 05/22/21 20:40 Potassium 4.2 mmol/L (3.5-5.1) 05/22/21 20:40 Chloride 101 mmol/L (98-107) 05/22/21 20:40 Carbon Dioxide 22 mmol/L (22-29) 05/22/21 20:40 Anion Gap 18.2 (5-19) 05/22/21 20:40 BUN 12 mg/dL (8-23) 05/22/21 20:40 Creatinine 0.9 mg/dL (0.5-0.9) 05/22/21 20:40 GFR Calculation Not Reportable 05/22/21 20:40 Glucose 84 mg/dL (65-115) 05/22/21 20:40 Calculated Osmolality 283 mOsm/kg (285-295) L 05/22/21 20:40 Calcium 9.9 mg/dL (8.5-10.5) 05/22/21 20:40 Total Bilirubin 0.5 mg/dL (0.15-1.2) 05/22/21 20:40 AST 20 U/L (0-32) 05/22/21 20:40 ALT 13 U/L (0-33) 05/22/21 20:40 Alkaline Phosphatase 155 IU/L (35-105) H 05/22/21 20:40 Total Protein 7.4 g/dL (6.6-8.7) 05/22/21 20:40 Albumin 4.6 g/dL (3.5-5.2) 05/22/21 20:40 Globulin 2.8 g/dL (1.3-4.6) 05/22/21 20:[address] Head: Radiologist's impression: IMPRESSION: 1. No acute cardiopulmonary process. 2. Incidental/nonacute findings are listed in the report. Other CT: I personally reviewed and interpreted this imaging study as follows: Radiologist's impression: . Atherosclerotic disease. Mild stenosis at the origin of the right middle cerebral artery. No occlusion, thrombosis, extravasation, dissection, or aneurysm. 2. The posterior communicating arteries are not visualized. The posterior communicating arteries may be congenitally absent, or may be too small for the resolution capabilities of this study. 3. Incidental/nonacute findings are listed in the report. IMPRESSION: 1. Mild atherosclerotic disease. Mild stenosis in the mid left subclavian artery. Motion artifact limits evaluation of the proximal right and left common carotid arteries and the mid left subclavian artery. Otherwise, no occlusion, thrombosis, extravasation, dissection, or aneurysm. 2. Incidental/nonacute findings are listed in the report. REFERENCES: NASCET CRITERIA. The degree of internal carotid artery stenosis is based on NASCET criteria. Normal is no stenosis. Mild is less than 50% stenosis. Moderate is 50-69% stenosis. Severe is 70% to 99% stenosis. Total occlusion is no detectable patent lumen. Dictated By: Herlinda Haines MD Signed By: Herlinda Haines MD Signed Date/Time: 05/22/212211 DD/ 08 ? EKG Data EKG 1: I personally reviewed and interpreted this EKG as follows: EKG interpretation date: 05/22/21 EKG interpretation time: 20:36 Interpretation: nsr hr [address] or t wave abnormalities qrs 90 qtc 410 Discharge Plan Discharge Patient Disposition: Home Clinical Impression: Irvin's palsy Condition: Stable Prescriptions: No Action valsartan 320 mg tablet 320 mg PO DAILY 0RF amlodipine 5 mg Tablet 5 mg PO DAILY 0RF Rx Instructions: take 1 tablet by mouth daily escitalopram oxalate 20 mg Tablet 20 mg PO DAILY 0RF metoclopramide HCl 10 mg Tablet 10 mg PO Q6H PRN (Reason: Nausea) 0RF Rx Instructions: take this medicine 1/2 hour before a meal. omeprazole 20 mg capsule,delayed release(DR/EC) 20 mg PO DAILY 0RF Synthroid 75 mcg tablet See Rx Instructions .ROUTE .COMPLEX 0RF Rx Instructions: 75 mcg orally mon, wed, friday lorazepam 0.5 mg tablet 0.5 mg PO TID PRN (Reason: Anxiety) 0RF folic acid 1 mg tablet 1 mg PO DAILY 0RF Discharge Orders: Discharge ED (Routine); Ordered 05/22/21 Ordered By: Shaniqua Newberry Referrals: Alfred Chambers MD [Primary Care Provider] - 1-3 days Discharge Diet: Advance as tolerated Discharge Activity: Resume usual activity Patient Instructions: Irvin Palsy (ED) Coding Level of Care Code ED Talent Acquisition Administrator for Chg Fwd Exam Comprehensive
[2021-05-22 21:03] LABS: INR 0.93 (0.8-1.2)
[2021-05-22 21:22] LABS: Alanine Aminotransferase 13 U/L (0-33); Albumin Level 4.6 g/dL (3.5-5.2); Alkaline Phosphatase 155 IU/L (35-105); Anion Gap 18.2 (5-19); Aspartate Amino Transferase 20 U/L (0-32); Blood Urea Nitrogen 12 mg/dL (8-23); Calcium 9.9 mg/dL (8.5-10.5); Carbon Dioxide 22 mmol/L (22-29); Chloride 101 mmol/L (98-107); Globulin 2.8 g/dL (1.3-4.6); Glucose 84 mg/dL (65-115); Osmolality Calculated 283 mOsm/kg (285-295); Potassium 4.2 mmol/L (3.5-5.1); Sodium 137 mmol/L (136-145); Total Bilirubin 0.5 mg/dL (0.15-1.2); Total Protein 7.4 g/dL (6.6-8.7)
[2021-05-22] MEDS: iohexol 350 mg/mL 100 mL Btl IV (21:44)
[2021-05-22 21:58] VITALS: BP 179/75; PULSE 78; RESP 18; O2SAT 100
--- NOTE | 2021-05-22 22:53 | PC.NURSE ---
patient ambulated down hallway. no difficulty noted or abnormal gait upon ambulation. patient in no obivosu dsitress. Patient sititng up on side of bed upon re-entry to room. Patient AOx4. Family at bedside.
[2021-05-22] MEDS: amlodipine 5 mg Tablet PO (23:06)
[2021-05-22 23:07] VITALS: BP 218/115; PULSE 74; RESP 18; TEMP 36.7; O2SAT 99
[2021-05-22] MEDS: labetalol 5 mg/mL SDV 20mL 10 MG IVP (23:15)
[2021-05-22 23:16] VITALS: BP 192/119; PULSE 92; RESP 18; O2SAT 97
[2021-05-22 23:31] VITALS: BP 164/83; PULSE 80; RESP 18; O2SAT 95
[2021-05-22 23:34] VITALS: BP 164/83; PULSE 79; RESP 18; TEMP 36.7; O2SAT 96
== END 2021-05-22 23:42 | disposition home or self-care (01) ==
PROVIDERS: Emergency Provider Emergency Medicine; PCP Family Medicine
DX: G51.0 Bell's palsy (principal); I10 Essential (primary) hypertension
CPT/HCPCS: 70450; 70496; 70498; 80053; 85025; 85610; 93005; 96374; 99283; J3490; Q9967

== ENCOUNTER 2022-11-21 18:04 | Emergency (ER) | payer MEDICARE, SELFPAY ==
--- NOTE | 2022-11-21 18:14 | CTR_ITS ---
PROCEDURE INFORMATION: Exam: CTA Head With Contrast, Arteriography Exam date and time: 11/21/2022 6:33 PM Age: 77 years old Clinical indication: Speech disturbance and weakness; Additional info: Stroke TECHNIQUE: Imaging protocol: Computed tomographic angiography of the head with contrast. Exam focused on the arteries. 3D rendering (Not supervised by radiologist): MIP and/or 3D reconstructed images were created by the technologist. Radiation optimization: All CT scans at this facility use at least one of these dose optimization techniques: automated exposure control; mA and/or kV adjustment per patient size (includes targeted exams where dose is matched to clinical indication); or iterative reconstruction. Contrast material: OMNI 350; Contrast volume: 100 ml; Contrast route: INTRAVENOUS (IV); REPORTING DATA: Count of CT and Cardiac NM exams in prior 12 months: This patient has received 0 known CTs and 0 known cardiac nuclear medicine studies in the 12 months prior to the current study. COMPARISON: CT angio headneck* [id number] 05/22/2021 9:45 PM RADIATION DOSE METRICS: Total DLP (mGy-cm): 385.79 FINDINGS: ANTERIOR CIRCULATION: Right internal carotid artery: Intracranial segment is patent with no significant stenosis. No aneurysm. Right middle cerebral artery: No occlusion or significant stenosis. No aneurysm. Right anterior cerebral artery: No occlusion or significant stenosis. No aneurysm. Left internal carotid artery: Intracranial segment is patent with no significant stenosis. No aneurysm. Left middle cerebral artery: No occlusion or significant stenosis. No aneurysm. Left anterior cerebral artery: No occlusion or significant stenosis. No aneurysm. POSTERIOR CIRCULATION: Right vertebral artery: No occlusion or significant stenosis. No aneurysm. Left vertebral artery: No occlusion or significant stenosis. No aneurysm. Basilar artery: No occlusion or significant stenosis. No aneurysm. Right posterior cerebral artery: No occlusion or significant stenosis. No aneurysm. Left posterior cerebral artery: No occlusion or significant stenosis. No aneurysm. Brain: No definite mass, mass effect, or midline shift. Cerebral ventricles: No ventriculomegaly. Bones/joints: Unremarkable. No acute fracture. Soft tissues: Unremarkable. PROCEDURE INFORMATION: Exam: CTA Neck With Contrast Exam date and time: 11/21/2022 6:33 PM Age: 77 years old Clinical indication: Speech disturbance and weakness; Additional info: Stroke TECHNIQUE: Imaging protocol: Computed tomographic angiography of the neck with contrast. 3D rendering (Not supervised by radiologist): MIP and/or 3D reconstructed images were created by the technologist. Radiation optimization: All CT scans at this facility use at least one of these dose optimization techniques: automated exposure control; mA and/or kV adjustment per patient size (includes targeted exams where dose is matched to clinical indication); or iterative reconstruction. Contrast material: OMNI 350; Contrast volume: 100 ml; Contrast route: INTRAVENOUS (IV); REPORTING DATA: Count of CT and Cardiac NM exams in prior 12 months: This patient has received 0 known CTs and 0 known cardiac nuclear medicine studies in the 12 months prior to the current study. COMPARISON: CT angio headneck* [id number] 05/22/2021 9:45 PM RADIATION DOSE METRICS: Total DLP (mGy-cm): 385.79 FINDINGS: Right common carotid artery: No stenosis. No dissection or occlusion. Right internal carotid artery: No stenosis of the extracranial segment. No dissection or occlusion. Right external carotid artery: No occlusion or stenosis of the origin. Left common carotid artery: No stenosis. No dissection or occlusion. Left internal carotid artery: No stenosis of the extracranial segment. No dissection or occlusion. Left external carotid artery: No occlusion or stenosis of the origin. Right vertebral artery: No stenosis. No dissection or occlusion. Left vertebral artery: No stenosis. No dissection or occlusion. Soft tissues: Normal. No significant soft tissue swelling. Bones/joints: No acute fracture. Degenerative changes of the spine seen. Esophagus: Air-fluid levels seen within the esophagus, suggestive of gastroesophageal reflux, and concerning for risk of aspiration pneumonia. CT/CT angio headneck* [id number] IMPRESSION: No large vessel stenosis or occlusion. IMPRESSION: 1. No stenosis or occlusion. 2. Air-fluid level within the esophagus, suggestive of gastroesophageal reflux and concerning for risk of aspiration pneumonia. REFERENCES: NASCET CRITERIA. The degree of stenosis in the cervical segment of the internal carotid artery is based on NASCET criteria. Normal is no stenosis. Mild is less than 50% stenosis. Moderate is 50-69% stenosis. Severe is 70% to 99% stenosis. Total occlusion is no detectable patent lumen.
--- NOTE | 2022-11-21 18:14 | CTR_ITS ---
PROCEDURE INFORMATION: Exam: CT Head Without Contrast Exam date and time: 11/21/2022 6:30 PM Age: 77 years old Clinical indication: Speech disturbance and weakness, extremity; Additional info: Stroke TECHNIQUE: Imaging protocol: Computed tomography of the head without contrast. Radiation optimization: All CT scans at this facility use at least one of these dose optimization techniques: automated exposure control; mA and/or kV adjustment per patient size (includes targeted exams where dose is matched to clinical indication); or iterative reconstruction. REPORTING DATA: Count of CT and Cardiac NM exams in prior 12 months: This patient has received 0 known CTs and 0 known cardiac nuclear medicine studies in the 12 months prior to the current study. COMPARISON: CT head wo con* [id number] 05/22/2021 7:39 PM RADIATION DOSE METRICS: Total DLP (mGy-cm): 1016.88 FINDINGS: Brain: In the left parahippocampal gyrus, there is a rounded focus of increased density and suggestion of minimal surrounding edema, measuring 0.9 x 0.8 x 0.7 cm. No midline shift. No acute, major vascular distribution infarction identified. There are foci of decreased attenuation in the periventricular and subcortical white matter, likely representing chronic small vessel ischemic changes. Mild cerebral volume loss is present. Cerebral ventricles: No ventriculomegaly. Paranasal sinuses: Visualized sinuses are unremarkable. No fluid levels. Mastoid air cells: Visualized mastoid air cells are well aerated. Bones/joints: Unremarkable. No acute fracture. Soft tissues: Unremarkable. CT/CT head wo con* [id number] IMPRESSION: Small focus of increased density in the left para hippocampal gyrus, concerning for intraparenchymal hemorrhage. Hyperdense/hemorrhagic mass lesion can have this appearance. Further evaluation with contrast enhanced abdomen MRI should be considered in the adequate clinical setting.
--- NOTE | 2022-11-21 18:14 | XRR_ITS ---
PROCEDURE INFORMATION: Exam: XR Chest Exam date and time: 11/21/2022 6:23 PM Age: 77 years old Clinical indication: Other: CVA TECHNIQUE: Imaging protocol: Radiologic exam of the chest. Views: 1 view. COMPARISON: CT angio headneck* [id number] 05/22/2021 9:45 PM FINDINGS: Lungs: Unremarkable. No consolidation. Pleural spaces: Unremarkable. No pleural effusion. No pneumothorax. Heart/Mediastinum: Unremarkable. No cardiomegaly. Bones/joints: Unremarkable. XR/XR chest 1V portable [id number] IMPRESSION: No acute findings.
--- NOTE | 2022-11-21 18:19 | ED_ITS ---
HPI - Neuro Symptoms/Deficit General: Chief Complaint: Neuro Symptoms/Deficit Stated Complaint: Possible Stroke Time Seen by Provider: 11/21/22 18:11 Source: family Mode of arrival: ambulatory Limitations: altered mental status History of Present Illness: 77-year-old female who is here with friend concerned she had a stroke friend states she supposed last saw her yesterday at 7 PM states that when she had seen her today that she was having a very hard time speaking patient here is trying to speak but it is very garbled and makes no sense she is following commands is able to move her extremities no known head injury she had a history of mini strokes in the past. Review of Systems General: Reports: ROS unobtainable due to mental status PFSH ED PFSH: Medical History (Updated 11/21/22 @ 20:27 by Genie Avilez MD) Anxiety GERD (gastroesophageal reflux disease) Hiatal hernia Hypertension Hypothyroidism Surgical History H/O breast biopsy History of repair of hiatal hernia Social History Smoking and tobacco status: never smoked Alcohol intake: never Substance/Drug Use: never NIH stroke score NIHSS: Level Of Consciousness - 1a: 0 Level Of Consciousness Questions - 1b: Neither Correct Level Of Consciousness Commands - 1c: One Correct Best Gaze - 2: Normal Visual Good - 3: No Visual Loss Facial Palsy - 4: Minor Paralysis Motor Arm Right - 5: No Drift Motor Arm Left - 5: No Drift Motor Leg Right - 6: No Drift Motor Leg Left - 6: No Drift Limb Ataxia - 7: Absent Sensory - 8: Normal Best Language - 9: Severe Aphasia Dysarthia - 10: Severe Dysarthia Extinction And Inattention - 11: 0 Score: Total Score: 8 Physical Exam Const: COMMON NORMALS: negative for patient oriented x3 HENMT: COMMON NORMALS: normocephalic and atraumatic HEAD & SCALP: normocephalic and atraumatic Eye: COMMON NORMALS: Equal, round and reactive pupils present PUPIL: Yes Equal, round and reactive pupils present Neck/C-Spine: COMMON NORMALS: full ROM and supple Chest: COMMONS NORMALS: normal inspection of the chest Resp: COMMON NORMALS: normal respiratory effort Cardio: COMMON NORMALS: regular rate and regular rhythm RATE: regular rate RHYTHM: regular rhythm GI: INSPECTION: Yes normal to inspection Extremity: COMMON NORMALS: normal to inspection Neuro: COMMON NORMALS: negative for patient oriented x3 OTHER: Severe dysarthria with word salad is able to follow most commands is able to move all 4 extremities Psych: COMMON NORMALS: negative for mental status grossly normal Skin: COMMON NORMALS: no rashes or lesions noted GENERAL SKIN EXAM: no rashes or lesions noted Course Vital Signs: Vital signs: Vital Signs Pulse Rate 76 11/21/22 19:35 Respiratory Rate 15 11/21/22 19:35 Blood Pressure 189/98 11/21/22 19:35 Pulse Oximetry 97 11/21/22 19:35 Oxygen Delivery Me thod Room Air 11/21/22 18:46 MDM - Neuro Symptoms/Deficit Medical Decision Making Patient presents here with severe dysarthria she is found to have a possible hemorrhagic mass versus intraparenchymal hemorrhage of spoken to neurology at [facility] I did speak to the ER physician will transfer ER to ER for higher level of care with neurosurgery. Medical Records I reviewed the patient's medical records. Lab Data I reviewed the patient's lab results. 11/21/22 18:23 11/21/22 18:23 Radiology Impressions Chest X-Ray 11/21/22 18:14 IMPRESSION: No acute findings. Head CT 11/21/22 18:14 IMPRESSION: Small focus of increased density in the left para hippocampal gyrus, concerning for intraparenchymal hemorrhage. Hyperdense/hemorrhagic mass lesion can have this appearance. Further evaluation with contrast enhanced abdomen MRI should be considered in the adequate clinical setting. ADDENDUM: 11/21/22 1904 IMPRESSION: Small focus of increased density in the left para hippocampal gyrus, concerning for intraparenchymal hemorrhage. Hyperdense/hemorrhagic mass lesion can have this appearance. Further evaluation with contrast enhanced abdomen MRI should be considered in the adequate clinical setting. ADDENDUM: 11/21/221923 THIS REPORT CONTAINS FINDINGS THAT MAY BE CRITICAL TO PATIENT CARE. As of 7:15 PM CDT on 11/21/2022 operations center staff confirmed that GENIE AVILEZ has received the exam report, is aware of the critical finding, and indicated no conference call was necessary to discuss the exam findings. Head/Neck CTA 11/21/22 18:14 IMPRESSION: No large vessel stenosis or occlusion. IMPRESSION: 1. No stenosis or occlusion. 2. Air-fluid level within the esophagus, suggestive of gastroesophageal reflux and concerning for risk of aspiration pneumonia. REFERENCES: NASCET CRITERIA. The degree of stenosis in the cervical segment of the internal carotid artery is based on NASCET criteria. Normal is no stenosis. Mild is less than 50% stenosis. Moderate is 50-69% stenosis. Severe is 70% to 99% stenosis. Total occlusion is no detectable patent lumen. ADDENDUM: 11/21/221922 THIS REPORT CONTAINS FINDINGS THAT MAY BE CRITICAL TO PATIENT CARE. As of 7:15 PM CDT on 11/21/2022 operations center staff confirmed that FATMATA GENIE has received the exam report, is aware of the critical finding, and indicated no conference call was necessary to discuss the exam findings. ADDENDUM: 11/21/221925 IMPRESSION: 1. No large vessel stenosis or occlusion. 2. Unchanged focus of increased density in the left para hippocampal gyrus, which may represent intraparenchymal hemorrhage or mass lesion, as previously mentioned. IMPRESSION: 1. No stenosis or occlusion. 2. Air-fluid level within the esophagus, suggestive of gastroesophageal reflux and concerning for risk of aspiration pneumonia. REFERENCES: NASCET CRITERIA. The degree of stenosis in the cervical segment of the internal carotid artery is based on NASCET criteria. Normal is no stenosis. Mild is less than 50% stenosis. Moderate is 50-69% stenosis. Severe is 70% to 99% stenosis. Total occlusion is no detectable patent lumen. Laboratory Results WBC 13.7 10^3/uL (4.0-10.0) H 11/21/22 18: RBC 5.35 10^6/uL (4.1-5.3) H 11/21/22 18: Hgb 16.0 g/dL (11.5-15.3) H 11/21/22 18: Hct 47.6 % (37.0-47.0) H 11/21/22 18: MCV 89.0 fl (81-99) 11/21/22 18: MCH 29.9 pg (28.0-34.0) 11/21/22 18: MCHC 33.6 g/dL (30.0-36.0) 11/21/22 18: RDW 12.7 % (12.1-15.1) 11/21/22 18 Plt Count 379 10^3/cmm (130-400) 11/21/22 18: MPV 8.7 fL (7.4-10.4) 11/21/22 18: Neut % (Auto) 72.1 % 11/21/22 18: Lymph % (Auto) 22.2 % 11/21/22 18: [place] % (Auto) 4.0 % 11/21/22 18: Eos % (Auto) 0.7 % 11/21/22: Baso % (Auto) 0.4 % 11/21/22: Neut # (Auto) 9.86 10^3/uL (1.8-7.7) H 11/21/22 18: Lymph # (Auto) 3.0 10^3/uL (0.8-4.8) 11/21/22 18: [place] # (Auto) 0.5 10^3/uL (0.2-0.9) 11/21/22: Eos # (Auto) 0.1 10^3/uL (0.0-0.8) 11/21/22: Baso # (Auto) 0.1 10^3/uL (0.0-0.1) 11/21/22 Nucleated RBC % (auto) 0 % 11/21/22: Nucleated RBCs # 0.0 /100WBC 11/21/22: PT 12.70 SECONDS (12.1-14.9) 11/21/22: INR 0.93 (0.8-1.2) 11/21/22 18: Sodium 130 mmol/L (136-145) L 11/21/22 18: Potassium 4.0 mmol/L (3.5-5.1) 11/21/22 18: Chloride 96 mmol/L (98-107) L 11/21/22 18: Carbon Dioxide 21 mmol/L (22-29) L 11/21/22 18:23 Anion Gap 17.0 (5-19) 11/21/22 18:23 BUN 9 mg/dL (8-23) 11/21/22 18: Creatinine 1.0 mg/dL (0.5-0.9) H 11/21/22 18:23 GFR Calculation Not Reportable 11/21/22 18: Glucose 214 mg/dL (65-115) H 11/21/22 18: POC Glucose 250 mg/dL (70-110) H 11/21/22 18:20 Calculated Osmolality 275 mOsm/kg (285-295) L 11/21/22 18: Calcium 9.4 mg/dL (8.5-10.5) 11/21/22 18: Total Bilirubin 0.4 mg/dL (0.15-1.2) 11/21/22 18: AST 25 U/L (0-32) 11/21/22 18: ALT 16 U/L (0-33) 11/21/22 18:23 Alkaline Phosphatase 197 U/L (35-105) H 11/21/22 18:23 Troponin T Baseline 7 ng/L (0-10) 11/21/22 18:23 Total Protein 7.1 g/dL (6.6-8.7) 11/21/22 18: Albumin 4.6 g/dL (3.5-5.2) 11/21/22 18:23 Globulin 2.5 g/dL (1.3-4.6) 11/21/22 18:23 Urine Color Yellow (Yellow) 11/21/22 19:20 Urine Appearance Clear (CLEAR) 11/21/22 19:20 Urine pH 7 (5-7) 11/21/22 19:20 Ur Specific [place] 1.000 (1.005-1.030) L 11/21/22 19:20 Urine Protein Neg (Negative) 11/21/22 19:20 Urine Glucose (UA) Trace (Normal) H 11/21/22 19:20 Urine Ketones Negative (Negative) 11/21/22 19:20 Urine Blood Neg (Negative) 11/21/22 19:20 Urine Nitrate Negative (Negative) 11/21/22 19:20 Urine Bilirubin Neg (Negative) 11/21/22 19:20 Urine Urobilinogen Norm mg/dL (Negative) 11/21/22 19:20 Ur Leukocyte Esterase Negative (Negative) 11/21/22 19:20 Discharge Plan Discharge Patient Disposition: Xfer Short-Term Hosp Clinical Impression: Intraparenchymal hemorrhage of brain Condition: Stable Prescriptions: No Action valsartan 320 mg tablet 320 mg PO DAILY amlodipine 5 mg Tablet 5 mg PO DAILY Rx Instructions: take 1 tablet by mouth daily escitalopram oxalate 20 mg Tablet 20 mg PO DAILY metoclopramide HCl 10 mg Tablet 10 mg PO Q6H PRN (Reason: Nausea) Rx Instructions: take this medicine 1/2 hour before a meal. omeprazole 20 mg capsule,delayed release(DR/EC) 20 mg PO DAILY Synthroid 75 mcg tablet See Rx Instructions .ROUTE .COMPLEX Rx Instructions: 75 mcg orally mon, fri, friday lorazepam 0.5 mg tablet 0.5 mg PO TID PRN (Reason: Anxiety) folic acid 1 mg tablet 1 mg PO DAILY Referrals: Alfred Chambers MD [Primary Care Provider] - Coding Level of Care Code ED Scalp Treatment Specialist for Alondra Quevedo
--- NOTE | 2022-11-21 18:21 | ECG_ITS ---
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 Measurements Intervals [place] Rate: 82 P: 39 AK: 178 QRS: 80 QRSD: 86 T: 52 QT: 364 QTc: 425 Interpretive Statements SINUS RHYTHM WITH OCCASIONAL VENTRICULAR PREMATURE COMPLEXES LOW QRS VOLTAGE IN PRECORDIAL LEADS [QRS DEFLECTION < 1.0 mV IN CHEST LEADS] PATTERN CONSISTENT WITH PULMONARY DISEASE Compared to ECG 05/22/2021 20:36:21 Ventricular premature complex(es) now present Low QRS voltage now present Electronically Signed On 11-22-2022 9:26:09 CDT by Mateus Matos M.D. [id number]
[2022-11-21 18:26] LABS: Glucose Point of Care 250 mg/dL (70-110)
[2022-11-21 18:39] LABS: Basophils # 0.1 10^3/uL (0.0-0.1); Basophils % 0.4 %; Eosinophils # 0.1 10^3/uL (0.0-0.8); Eosinophils % 0.7 %; Hematocrit 47.6 % (37.0-47.0); Lymphocytes % 22.2 %; Mean Corpuscular HGB Conc 33.6 g/dL (30.0-36.0); Mean Corpuscular Hemoglobin 29.9 pg (28.0-34.0); Mean Platelet Volume 8.7 fL (7.4-10.4); Monocytes # 0.5 10^3/uL (0.2-0.9); Neutrophils # 9.86 10^3/uL (1.8-7.7); Neutrophils % 72.1 %; Nucleated Red Blood Cells % 0 %; Platelet Count 379 10^3/cmm (130-400); Red Blood Count 5.35 10^6/uL (4.1-5.3); Red Cell Distribution Width 12.7 % (12.1-15.1); White Blood Count 13.7 10^3/uL (4.0-10.0)
[2022-11-21 18:46] VITALS: BP 175/102; PULSE 80; RESP 18; O2SAT 99
[2022-11-21] MEDS: iohexol 350 mg/mL 500 mL Btl (per mL) IV (18:47)
[2022-11-21 19:04] LABS: Alanine Aminotransferase 16 U/L (0-33); Albumin Level 4.6 g/dL (3.5-5.2); Alkaline Phosphatase 197 U/L (35-105); Aspartate Amino Transferase 25 U/L (0-32); Blood Urea Nitrogen 9 mg/dL (8-23); Calcium 9.4 mg/dL (8.5-10.5); Carbon Dioxide 21 mmol/L (22-29); Chloride 96 mmol/L (98-107); Globulin 2.5 g/dL (1.3-4.6); Glucose 214 mg/dL (65-115); Osmolality Calculated 275 mOsm/kg (285-295); Sodium 130 mmol/L (136-145); Total Bilirubin 0.4 mg/dL (0.15-1.2); Total Protein 7.1 g/dL (6.6-8.7)
[2022-11-21 19:13] LABS: Troponin(5th) Baseline 7 ng/L (0-10)
[2022-11-21] MEDS: hyDRALAzine 20 mg/mL INJ 1 mL 10 MG IVP (19:33)
[2022-11-21 19:35] VITALS: BP 189/98; PULSE 76; RESP 15; O2SAT 97
[2022-11-21 19:39] LABS: Add Urine Microscopic? NO; Charge for UA Resulting for Rev
[2022-11-21 19:42] LABS: Bilirubin Urine Neg (Negative); Blood Urine Neg (Negative); Glucose Urine UA Trace (Normal); Ketones Urine Negative (Negative); Leukocyte Esterase Urine Negative (Negative); Nitrate Urine Negative (Negative); Protein Urine Neg (Negative); Urine Appearance Clear (CLEAR); Urine Color Yellow (Yellow); Urobilinogen Urine Norm (Negative); pH Urine 7 (5-7)
[2022-11-21 19:56] LABS: INR 0.93 (0.8-1.2)
--- NOTE | 2022-11-21 20:27 | ECG_ITS ---
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 Measurements Intervals [place] Rate: 103 P: 34 MO: 170 QRS: -17 QRSD: 86 T: 34 QT: 354 QTc: 464 Interpretive Statements SINUS TACHYCARDIA Compared to ECG 11/21/2022 18:21:24 Sinus rhythm no longer present Ventricular premature complex(es) no longer present Electronically Signed On 11-22-2022 9:29:22 CDT by Mateus Matos M.D. [id number]
[2022-11-21 20:45] VITALS: BP 161/88; PULSE 97; RESP 16; O2SAT 97
[2022-11-21 20:58] LABS: Troponin 5 2HR 7.32 ng/L (0-10); Troponin 5 2HR Delta 0.32 ABS# (0-10)
== END 2022-11-21 21:07 | disposition short-term general hospital (02) ==
PROVIDERS: Emergency Provider Emergency Medicine; PCP Family Medicine
DX: I61.8 Other nontraumatic intracerebral hemorrhage (principal); I10 Essential (primary) hypertension
CPT/HCPCS: 36415; 36416; 70450; 70496; 70498; 71045; 80053; 81003; 82962; 84484; 85025; 85610; 93005; 96374; 99285; J0360; Q9967

== ENCOUNTER 2023-01-02 10:12 | Inpatient (IN) | payer MEDICARE, SELFPAY ==
[2023-01-02] VITALS (54 sets, daily range): BP systolic 88–193; BP diastolic 64–119; PULSE 83–130; RESP 15–34; TEMP 36.7–37.5; O2SAT 93–99
--- NOTE | 2023-01-02 10:57 | ED_ITS ---
HPI - GI Bleed General: Chief complaint: GI Bleed Stated complaint: phys sent, vomit, dizzy Time Seen by Provider: 01/02/23 10:26 History of Present Illness: 77-year-old female started feeling sick to her stomach last night around 7 PM. She has vomited a few times. She most recently filled up an emesis basin about one third of the way with a dark appearing vomitus. Patient denies any abdominal pain. She has felt lightheaded. Her heart rate was elevated at her physician's office today and here as well. She does have a relevant past medical history. 1 month ago she presented with neurologic abnormalities and was found to have a small parenchymal hemorrhage. She tells me that upon transfer they did further imaging and found what they believed to be a small mass. There was a stroke in a different area of the brain. Because of the hemorrhage, she is on no blood thinners and no antiplatelet agents. She does have a relevant history of chronic GERD. She had a hiatal hernia that was repaired many years ago. She does take a PPI Associated symptoms: Denies abdominal pain, chills, fever(s), headache(s), rash or syncope Review of Systems General: Reports: 10 or more systems reviewed and unremarkable except in HPI and below Const: Denies: fever(s), chills or body aches Eyes: Denies: change in vision ENMT: Denies: throat pain Card: Denies: chest pain, edema or syncope Resp: Denies: dyspnea or productive cough GI: Denies: abdominal pain or diarrhea : Denies: flank pain, dysuria or urinary frequency Musc: Denies: neck pain, back pain, extremity pain or extremity swelling Skin/Breast: Denies: rash or erythema Neuro: Denies: headache(s), numbness in extremities, weakness in extremities, lack of coordination or difficulty walking PFS ED PFSH: Medical History (Updated 01/02/23 @ 14:05 by Osvaldo Kumar MD) Anxiety GERD (gastroesophageal reflux disease) Hiatal hernia Hypertension Hypothyroidism Surgical History H/O breast biopsy History of repair of hiatal hernia Social History Smoking and tobacco status: never smoked Alcohol intake: never Substance/Drug Use: never Physical Exam Const: COMMON NORMALS: no limitations, alert and well nourished EXAM LIMITATIONS: no altered mental status HENMT: COMMON NORMALS: normocephalic, atraumatic and external ears normal HEAD & SCALP: normocephalic and atraumatic EXTERNAL EAR: Yes external ears normal MOUTH: no muffled voice Eye: COMMON NORMALS: EOMs intact bilaterally, conjunctivae normal and no scleral icterus CONJUNCTIVA: Yes conjunctivae normal Neck/C-Spine: COMMON NORMALS: no JVD GENERAL: Yes normal visual inspection and Yes trachea midline Resp: COMMON NORMALS: normal respiratory effort, No use of accessory muscles and clear to auscultation bilaterally AUSCULTATION: clear to auscultation bilaterally Cardio: COMMON NORMALS: no JVD, regular rate and regular rhythm RATE: regular rate and Other (Borderline tachycardia at time of exam. She was tachycardic on arrival) RHYTHM: regular rhythm GI: COMMON NORMALS: Soft to palpation and non-tender PALPATION: Yes Soft to palpation, No Tenderness to palpation present (GI), No Guarding due to palpation present (GI), No Rigid due to palpation, No Palpable mass present and No Rebound tenderness present OTHER: Rectal examination was performed. Stool is soft and light brown. Hemoccult is negative Extremity: COMMON NORMALS: normal to inspection Neuro: COMMON NORMALS: moves all extremities, no focal motor deficits and no sensory deficits noted SENSORIUM/ORIENTATION: Yes alert SPEECH: speech normal Psych: COMMON NORMALS: mental status grossly normal, Normal thought process present, cooperative, normal affect and speech normal SPEECH: Yes normal speech THOUGHT PROCESS: Normal thought process present Skin: COMMON NORMALS: no rashes or lesions noted, turgor normal and no j aundice NARRATIVE SKIN EXAM: Slight pallor GENERAL SKIN EXAM: no rashes or lesions noted and turgor normal Course Vital Signs: Vital signs: Vital Signs Temperature 98.0 F 01/02/23 10:15 Pulse Rate 90 01/02/23 13:40 Respiratory Rate 27 H 01/02/23 13:40 Blood Pressure 154/116 01/02/23 12:45 Pulse Oximetry 97 01/02/23 13:40 Oxygen Delivery Me thod Room Air 01/02/23 10:37 MDM - GI Bleed Medical Decision Making Patient presents with nausea and vomiting since last night. Her vomitus is dark in color but does not have the classic coffee-ground appearance to me. I have sent off for a Gastroccult. Her Hemoccult was negative. She no longer has tachycardia while supine and at rest. She does seem to be significantly orthostatic. I have ordered type and screen, coags, CBC, CMP, 1 L of IV fluids, UA. Although her abdomen is nontender, she does complain of some pain in her back which is vague. I do not always do a CT scan on patients with upper GI bleeding however with her abnormal vital signs and back pain, as well as her history of chronic GERD and history of hiatal hernia there are several things I do want a rule out in the emergency department as the patient is going to require admission. To do this a CT scan will be required. UPDATE: Hemoglobin rechecked at 1236. It dropped from 14-12.2. However, some of this might be delusional effect from the IV fluids. The Hemoccult was negative but the Gastroccult was positive. No further vomiting in the ER. CT scan of the abdomen and pelvis did show signs of esophagitis, gastritis, and hiatal hernia. This is probably the cause of the bleeding. The patient was given Rocephin because it was unclear whether there was coexisting infectious sepsis. Ultimately I was not able to find any source of sepsis. The lactic acid was elevated; a 2-hour reflex lactic has been ordered. I have instructed nursing staff to make sure gets drawn. Patient was given 80 mg of Protonix. She is NPO. I have paged hospitalist for admission. Awaiting return call. Lab Data 01/02/23 12:36 01/02/23 10:48 Laboratory Results WBC 16.04 10^3/uL (3.29-11.43) H 01/02/23 10:48 RBC 4.72 10^6/uL (3.85-5.65) 01/02/23 10:48 Hgb 12.20 g/dL (11.27-16.99) 01/02/23 12:36 Hct 36.7 % (36-47) 01/02/23 12:36 MCV 86.7 fl (85-98) 01/02/23 10:48 MCH 29.9 pg (27-33) 01/02/23 10:48 MCHC 34.5 g/dL (30-55) 01/02/23 10:48 RDW 12.1 % (12.1-15.1) 01/02/23 10:48 Plt Count 360 10^3/cmm (157-399) 01/02/23 10:48 MPV 8.8 fL (7.4-10.4) 01/02/23 10:48 Neut % (Auto) 81.6 % 01/02/23 10:48 Lymph % (Auto) 10.7 % 01/02/23 10:48 [place] % (Auto) 6.8 % 01/02/23 10:48 Eos % (Auto) 0.1 % 01/02/23 10:48 Baso % (Auto) 0.2 % 01/02/23 10:48 Neut # (Auto) 13.08 10^3/uL (1.8-7.7) H 01/02/23 10:48 Lymph # (Auto) 1.7 10^3/uL (0.8-4.8) 01/02/23 10:48 [place] # (Auto) 1.1 10^3/uL (0.2-0.9) H 01/02/23 10:48 Eos # (Auto) 0.0 10^3/uL (0.0-0.8) 01/02/23 10:48 Baso # (Auto) 0.0 10^3/uL (0.0-0.1) 01/02/23 10:48 Nucleated RBC % (auto) 0 % 01/02/23 10:48 Nucleated RBCs # 0.0 /100WBC 01/02/23 10:48 PT 13.30 SECONDS (12.1-14.9) 01/02/23 10:48 INR 0.98 (0.8-1.2) 01/02/23 10:48 APTT 26.6 SECONDS (23.9-36.7) 01/02/23 10:48 Sodium 134 mmol/L (136-145) L 01/02/23 10:48 Potassium 2.9 mmol/L (3.5-5.1) L 01/02/23 10:48 Chloride 94 mmol/L (98-107) L 01/02/23 10:48 Carbon Dioxide 24 mmol/L (22-29) 01/02/23 10:48 Anion Gap 18.9 (5-19) 01/02/23 10:48 BUN 22 mg/dL (8-23) 01/02/23 10:48 Creatinine 1.4 mg/dL (0.5-0.9) H 01/02/23 10:48 GFR Calculation Not Reportable 01/02/23 10:48 Glucose 128 mg/dL (65-115) H 01/02/23 10:48 Calculated Osmolality 283 mOsm/kg (285-295) L 01/02/23 10:48 Lactic Acid 3.0 mmol/L (0.5-2.2) H 01/02/23 10:48 Calcium 10.1 mg/dL (8.5-10.5) 01/02/23 10:48 Total Bilirubin 0.7 mg/dL (0.15-1.2) 01/02/23 10:48 AST 14 U/L (0-32) 01/02/23 10:48 ALT 14 U/L (0-33) 01/02/23 10:48 Alkaline Phosphatase 187 U/L (35-105) H 01/02/23 10:48 Total Protein 7.4 g/dL (6.6-8.7) 01/02/23 10:48 Albumin 4.4 g/dL (3.5-5.2) 01/02/23 10:48 Globulin 3.0 g/dL (1.3-4.6) 01/02/23 10:48 Urine Color Yellow (Yellow) 01/02/23 12:50 Urine Appearance Clear (CLEAR) 01/02/23 12:50 Urine pH 6.5 (5-7) 01/02/23 12:50 Ur Specific [place] 1.005 (1.005-1.030) 01/02/23 12:50 Urine Protein Neg (Negative) 01/02/23 12:50 Urine Glucose (UA) Norm (Normal) 01/02/23 12:50 Urine Ketones Negative (Negative) 01/02/23 12:50 Urine Blood Neg (Negative) 01/02/23 12:50 Urine Nitrate Negative (Negative) 01/02/23 12:50 Urine Bilirubin Neg (Negative) 01/02/23 12:50 Urine Urobilinogen Norm mg/dL (Negative) 01/02/23 12:50 Ur Leukocyte Esterase Negative (Negative) 01/02/23 12:50 Gastric Occult Blood Positive (Negative) H 01/02/23 10:31 Blood Type A Positive 01/02/23 10:48 Rho(D) Type Positive 01/02/23 10:48 Antibody Screen Negative 01/02/23 10:48 Crossmatch See Detail 01/02/23 10:48 XR interpretation done by ED provider, pending radiology final review ED provider radiology interpretation(s): cxr 1 view: EP interp: neg CT abd/pelv per radiologist Discharge Plan Discharge Patient Disposition: Admitted As Inpatient Clinical Impression: Upper gastrointestinal hemorrhage, Hernia, hiatal, Gastritis, Orthostatic hypotension Condition: Stable Coding Level of Care Code 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
[2023-01-02 10:59] LABS: Basophils % 0.2 %; Eosinophils % 0.1 %; Hematocrit 40.9 % (36-47); Lymphocytes # 1.7 10^3/uL (0.8-4.8); Lymphocytes % 10.7 %; Mean Corpuscular HGB Conc 34.5 g/dL (30-55); Mean Corpuscular Hemoglobin 29.9 pg (27-33); Mean Corpuscular Volume 86.7 fl (85-98); Mean Platelet Volume 8.8 fL (7.4-10.4); Monocytes # 1.1 10^3/uL (0.2-0.9); Monocytes % 6.8 %; Neutrophils # 13.08 10^3/uL (1.8-7.7); Neutrophils % 81.6 %; Nucleated Red Blood Cells % 0 %; Platelet Count 360 10^3/cmm (157-399); Red Blood Count 4.72 10^6/uL (3.85-5.65); Red Cell Distribution Width 12.1 % (12.1-15.1); White Blood Count 16.04 10^3/uL (3.29-11.43)
--- NOTE | 2023-01-02 11:07 | CT_ITS ---
WS: [id number] CT ABDOMEN PELVIS TECHNIQUE: Contrast-enhanced CT of the abdomen and pelvis with coronal and sagittal reformatted image s. CLINICAL INFORMATION: hypotension/tachycardia vomiting, some back pain, ? UGIB COMPARISON: CT 09/04/2019 DLP: 350.[address] scans at [facility] use at least one of these dose optimization techniques: automated e xposure control; mA and/or kV adjustment per patient size (includes targeted exams where dose is matc hed to clinical indication); or iterative reconstruction. FINDINGS: Moderate esophageal hiatal hernia slightly progressed since 2019. Thickening at the GE junction and p roximal stomach compatible with esophagitis and gastritis. No visualized increased attenuation blood products. Mild fatty infiltration liver. Normal portal vein and splenic vein. Normal spleen. Lung bas es are well aerated. Normal pancreas. Celiac and SMA are patent. Adrenal glands are normal. RIGHT renal atrophy. Normal bi lateral renal parenchymal enhancement. Small bilateral renal cysts. RIGHT renal cortical scarring. Ad renal glands are normal. Moderate spondylitic changes lumbar spine. Small fat-containing umbilical he rnia. IMPRESSION: 1. Moderate esophageal renal hernia slightly progressed since 2019. 2. Mild thickening at the GE junction with mild gastric wall thickening can be seen with esophagitis and gastritis. No visualized increased attenuation blood products. 3. Mild fatty filtration of the liver. 4. RIGHT renal cortical scarring and atrophy. Bilateral renal cysts. 5. No other acute findings.
[2023-01-02 11:19] LABS: INR 0.98 (0.8-1.2)
[2023-01-02 11:19] LABS: Gastricult Occult Blood Positive (Negative)
[2023-01-02 11:20] LABS: Partial Thromboplastin Time 26.6 SECONDS (23.9-36.7)
[2023-01-02 11:23] LABS: Alanine Aminotransferase 14 U/L (0-33); Albumin Level 4.4 g/dL (3.5-5.2); Alkaline Phosphatase 187 U/L (35-105); Anion Gap 18.9 (5-19); Aspartate Amino Transferase 14 U/L (0-32); Blood Urea Nitrogen 22 mg/dL (8-23); Calcium 10.1 mg/dL (8.5-10.5); Carbon Dioxide 24 mmol/L (22-29); Chloride 94 mmol/L (98-107); Glucose 128 mg/dL (65-115); Osmolality Calculated 283 mOsm/kg (285-295); Sodium 134 mmol/L (136-145); Total Bilirubin 0.7 mg/dL (0.15-1.2); Total Protein 7.4 g/dL (6.6-8.7)
[2023-01-02 11:26] LABS: Potassium 2.9 mmol/L (3.5-5.1)
--- NOTE | 2023-01-02 11:30 | XRR_ITS ---
PROCEDURE INFORMATION: Exam: XR Chest Exam date and time: 01/02/2023 11:39 AM Age: 77 years old Clinical indication: Other: Hypotension, tachycardia; Prior surgery; Surgery date: 6+ months; Surgery type: Breast biopsy TECHNIQUE: Imaging protocol: Radiologic exam of the chest. Views: 1 view. COMPARISON: CR (CHEST, ) 11/21/2022 6:23 PM FINDINGS: Lungs: No infiltrate. Subsegmental atelectasis in the left base. Pleural spaces: Unremarkable. No pleural effusion. No pneumothorax. Heart/Mediastinum: Unremarkable. No cardiomegaly. Bones/joints: Unremarkable. XR/XR chest 1V portable [id number] IMPRESSION: Mild left basilar subsegmental atelectasis.
[2023-01-02] MEDS: pantoprazole 40 mg SDV 80 MG IVP (11:40)
[2023-01-02] MEDS: sodium chloride 0.9% 1,000 ML 999 ML IV ×2 (11:41→11:47)
[2023-01-02] MEDS: potassium chloride premix 100 ML 25 MEQ IV (11:47)
[2023-01-02] MEDS: iohexol 350 mg/mL 500 mL Btl (per mL) IV (11:56)
[2023-01-02 12:43] LABS: Reflex Lactate Order REFLEX LACTIC ORDERD
[2023-01-02 12:53] LABS: Hematocrit 36.7 % (36-47)
[2023-01-02 13:08] LABS: Add Urine Microscopic? NO; Charge for UA Resulting for Rev
[2023-01-02 13:14] LABS: Glucose Urine UA Norm (Normal); Protein Urine Neg (Negative); Specific Gravity, Urine 1.005 (1.005-1.030); Urine Appearance Clear (CLEAR); Urine Color Yellow (Yellow); pH Urine 6.5 (5-7)
[2023-01-02 13:15] LABS: Bilirubin Urine Neg (Negative); Blood Urine Neg (Negative); Ketones Urine Negative (Negative); Leukocyte Esterase Urine Negative (Negative); Nitrate Urine Negative (Negative); Urobilinogen Urine Norm (Negative)
[2023-01-02] MEDS: cefTRIAXone 1,000 MG in sodium chloride 0.9% (plus) 50 ML 100 MG IV (13:41)
[2023-01-02 14:44] LABS: Lactic Acid level (Lactate) 2.2 mmol/L (0.5-2.2)
--- NOTE | 2023-01-02 15:59 | P.HP_ITS ---
Providers/Chief Complaint Admitting Physician: Wilfred Lea MD Primary Care Provider: Alfred Chambers MD Chief Complaint: phys sent, vomit, dizzy History of Present Illness Rosalinda Burks is a 77 year old female past medical history of TIA, history of CVA, history of recent hospitalization at [facility] for intracranial bleed, taken off aspirin, history of chronic back pain for which she uses ibuprofen 200 mg 4 tablets every 6 hours for pain, hypothyroidism, anxiety, hypertension, who presents to [facility] for black tarry emesis. Patient tells me that roughly a month ago she was Air-Evac from [facility] to [facility], for concerns for an intracranial mass that was bleeding, at [facility], they told her that it was an intracranial bleed, that it was stroke, and that there was 2 areas that were monitoring, they conservatively managed but she had an extensive work-up including a lumbar puncture, they also also treated her for sepsis at that time. 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 Roughly at about 5 PM yesterday she started to feel nauseous and started having black tarry emesis, she tells me that she had many episodes enough to soak her bed, she continued to have episodes throughout the night and did not go to sleep, family initially thought it food poisoning, but she really had not eaten anything, she then went to urgent care, and there which she was told to come to the emergency room, she had 1 episode of black tarry emesis at about 10 AM, which was positive for Gastroccult, was hypotensive on examination blood pressures 90s over 50s, currently she is alert oriented x3, no recurrent nausea, no vomiting, since about 10 AM, blood pressure 154/95, saturating 95% on room air, temp 98, daughter is at bedside, she denies any previous transfusions in the past, she has never had an EGD, but does report a history of a hiatal hernia for which she had surgery 11 years ago go at [facility] and had complications thereafter, her hemoglobin is 12.2 Review of Systems Const: Denies: fever(s) Eyes: Denies: change in vision ENMT: Denies: throat pain Card: Denies: chest pain Resp: Denies: dyspnea GI: Reports: abdominal pain, nausea, coffee ground emesis and heartburn : Denies: flank pain or difficulty voiding Musc: Reports: back pain; Denies: neck pain Skin/Breast: Denies: rash Neuro: Denies: headache(s) Ron/Lymph: Denies: easy bruising Medications/Allergies Home Medications Medication Instructions Recorded Confirmed Last Taken Type amlodipine 5 mg tablet 5 mg PO DAILY 09/05/19 01/02/23 01/02/23 History escitalopram oxalate 20 mg tablet 20 mg PO DAILY 09/05/19 01/02/23 01/02/23 History levothyroxine 75 mcg tablet See Rx Instructions .Route .COMPLEX 09/05/19 01/02/23 01/01/23 History (Synthroid) lorazepam 0.5 mg tablet 0.5 mg PO TID PRN Anxiety 09/05/19 01/02/23 Unknown History metoclopramide HCl 10 mg tablet 10 mg PO Q6H PRN Nausea 09/05/19 01/02/23 01/02/23 History omeprazole 20 mg capsule,delayed 20 mg PO DAILY 09/05/19 01/02/23 01/02/23 History release atorvastatin 40 mg tablet 40 mg PO BEDTIME 01/02/23 01/02/23 01/01/23 History magnesium 200 mg tablet 200 mg PO DAILY 01/02/23 01/02/23 01/02/23 History potassium chloride 10 mEq 10 meq PO BID 01/02/23 01/02/23 01/02/23 History capsule,extended release Allergies Allergy/AdvReac Type Severity Reaction Status Date / Time Penicillins Allergy Unknown Verified 01/02/23 10:26 PFSH Acute PFSH: Medical History (Updated 01/02/23 @ 16:13 by Wilfred Lea MD) Anxiety GERD (gastroesophageal reflux disease) Hiatal hernia Hypertension Hypothyroidism Surgical History H/O breast biopsy History of repair of hiatal hernia Family History (Updated 01/02/23 @ 16:02 by Wilfred Lea MD) Mother TIA (transient ischemic attack) Father Hypertension Social History Smoking and tobacco status: never smoked Alcohol intake: never Substance/Drug Use: never Vitals/I&O/Wt Last Vital Signs Temp 98.0 F 01/02/23 10:15 Pulse 90 01/02/23 14:05 Resp 32 H 01/02/23 14:05 BP 154/95 01/02/23 15:05 Pulse Ox 94 01/02/23 15:05 O2 Del Method Room Air 01/02/23 10:37 Weight last 48 hrs Weight 61.235 kg Physical Exam Const: COMMON NORMALS: no acute distress and patient oriented x3 GENERAL APPEARANCE: cooperative, well kempt and well developed HENMT: COMMON NORMALS: normocephalic and Normal external nose present HEAD & SCALP: normocephalic FACE & SINUS: normal facial exam NOSE: Normal external nose present MOUTH: Normal oral and palatal mucosa present Eye: COMMON NORMALS: Equal, round and reactive pupils present, conjunctivae normal and no scleral icterus CONJUNCTIVA: Yes conjunctivae normal PUPIL: Yes Equal, round and reactive pupils present Neck/C-Spine: COMMON NORMALS: full ROM, no lymphadenopathy, no JVD, Thyroid normal and No carotid bruits Lymph: LYMPHATIC: no lymphadenopathy noted Chest: COMMONS NORMALS: normal inspection of the chest Resp: COMMON NORMALS: normal respiratory effort, No retractions, No use of accessory muscles and clear to auscultation bilaterally AUSCULTATION: clear to auscultation bilaterally Cardio: COMMON NORMALS: regular rate, regular rhythm, S1 normal heart sound present, S2 normal heart sound present, No murmurs present (Cardio) and Peripheral pulses 2+ throughout RATE: regular rate RHYTHM: regular rhythm HEART SOUNDS: S1 normal heart sound present and S2 normal heart sound present PERIPHERAL PULSES: Peripheral pulses 2+ throughout GI: COMMON NORMALS: Normal to inspection, nondistended, normoactive bowel sounds present, Soft to palpation and non-tender : BLADDER/KIDNEY EXAM: Yes no CVA tenderness Back/Pelvis: COMMON NORMALS: no CVA tenderness Extremity: COMMON NORMALS: normal to inspection, full ROM, capillary refill normal, no calf tenderness and no pedal edema Neuro: COMMON NORMALS: patient oriented x3, CN's II-XII intact bilaterally, moves all extremities, no focal motor deficits and no sensory deficits noted MENINGEAL SIGNS: Yes no meningeal signs Psych: COMMON NORMALS: mental status grossly normal, Normal thought process present, cooperative and speech normal APPEARANCE: Yes well kempt SPEECH: Yes normal speech THOUGHT PROCESS: Normal thought process present Skin: COMMON NORMALS: turgor normal and no jaundice GENERAL SKIN EXAM: turgor normal Data 01/02/23 12:36 01/02/23 10:48 Micro: Microbiology 01/02/23 12:42 Blood Culture - Preliminary Blood SPECIMEN COLLECTED 01/02/23 12:36 Blood Culture - Preliminary Blood SPECIMEN COLLECTED A&P Assessment and plan (1) Upper gastrointestinal hemorrhage: (2) Hernia, hiatal: (3) Gastritis: (4) Anxiety: (5) Hypothyroidism: (6) GERD (gastroesophageal reflux disease): (7) Hypertension: (8) ICH (intracerebral hemorrhage): (9) MIYA (acute kidney injury): Plan Upper GI bleed -With history of hiatal hernia -With history of current NSAID use -Gastroccult positive -Was hypotensive on admission, remains normotensive, had episode of black tarry emesis on presentation none since 10 AM Plan -MIYA iv fluids -leukocytosis, monitor -hypokalemia, received replacement in ER -Continue IV fluids at 100 cc -Keep n.p.o. -Protonix 40 IV every 12 hours -Continue Carafate -Monitor for black tarry emesis, monitor hemodynamics closely -Zofran and promethazine for nausea -Monitor hemoglobin every 4 hours -General surgery has been consulted by ER patient - DNR/DNI, Confirmed this with patient and daughter at bedside -SCDs for DVT prophylaxis given GI bleed, history of intracranial bleed Attestations Medical Necessity Statement*: Patient requires hospitalization, inpatient, greater than 2 midnights, for upper GI bleed Diagnoses Upper gastrointestinal hemorrhage K92.2 Hernia, hiatal K44.9 Gastritis K29.70 Anxiety F41.9 Hypothyroidism E03.9 GERD (gastroesophageal reflux disease) K21.9 Hypertension I10 ICH (intracerebral hemorrhage) I61.9 MIYA (acute kidney injury) N17.9
--- NOTE | 2023-01-02 16:04 | ECG_ITS ---
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 Measurements Intervals [place] Rate: 88 P: 41 MN: 170 QRS: -9 QRSD: 82 T: 12 QT: 413 QTc: 501 Interpretive Statements SINUS RHYTHM Compared to ECG 11/21/2022 20:27:49 Sinus tachycardia no longer present Electronically Signed On 01-02-2023 17:37:25 CDT by Mateus Matos M.D. [email or web address]
--- NOTE | 2023-01-02 16:29 | PM.CONSULT ---
Providers/Reason For Consult Consulting Physician/Specialty*: General surgery Reason for Consult*: Upper GI bleeding Attending Physician: Wilfred Lea MD Primary Care Provider: Alfred Chambers MD History of Present Illness History of Present Illness Rosalinda Burks is a 77 year old female who presents to the hospital complaining of multiple episodes of coffee-ground emesis, in addition she also had some hematemesis. Patient has history of back pain for which she takes large doses of ibuprofen daily. She complains of symptoms of reflux and epigastric abdominal pain on a regular basis. No anticoagulation at the moment as she had a recent stroke. Last vomit was today at 10 AM, has not had any further episodes of vomit after she arrived to the emergency room. Review of Systems Narrative: 10 point review of systems done and negative otherwise noted in HPI Medications/Allergies Home Medications Medication Instructions Recorded Confirmed Last Taken Type amlodipine 5 mg tablet 5 mg PO DAILY 09/05/19 01/02/23 01/02/23 History escitalopram oxalate 20 mg tablet 20 mg PO DAILY 09/05/19 01/02/23 01/02/23 History levothyroxine 75 mcg tablet See Rx Instructions .Route .COMPLEX 09/05/19 01/02/23 01/01/23 History (Synthroid) lorazepam 0.5 mg tablet 0.5 mg PO TID PRN Anxiety 09/05/19 01/02/23 Unknown History metoclopramide HCl 10 mg tablet 10 mg PO Q6H PRN Nausea 09/05/19 01/02/23 01/02/23 History omeprazole 20 mg capsule,delayed 20 mg PO DAILY 09/05/19 01/02/23 01/02/23 History release atorvastatin 40 mg tablet 40 mg PO BEDTIME 01/02/23 01/02/23 01/01/23 History magnesium 200 mg tablet 200 mg PO DAILY 01/02/23 01/02/23 01/02/23 History potassium chloride 10 mEq 10 meq PO BID 01/02/23 01/02/23 01/02/23 History capsule,extended release Allergies Allergy/AdvReac Type Severity Reaction Status Date / Time Penicillins Allergy Unknown Verified 01/02/23 10:26 PFSH Acute PFSH: Medical History (Updated 01/02/23 @ 16:13 by Wilfred Lea MD) Anxiety GERD (gastroesophageal reflux disease) Hiatal hernia Hypertension Hypothyroidism Surgical History H/O breast biopsy History of repair of hiatal hernia Family History (Updated 01/02/23 @ 16:02 by Wilfred Lea MD) Mother TIA (transient ischemic attack) Father Hypertension Social History Smoking and tobacco status: never smoked Alcohol intake: never Substance/Drug Use: never Vitals/I&O/Wt Last Vital Signs Temp 98.0 F 01/02/23 10:15 Pulse 90 01/02/23 14:05 Resp 32 H 01/02/23 14:05 BP 154/95 01/02/23 15:05 Pulse Ox 94 01/02/23 15:05 O2 Del Method Room Air 01/02/23 10:37 Weight last 48 hrs Weight 135 lb Physical Exam Narrative: General : Patient is well developed , no acute distress, oriented x3 Head : Normal cephalic, a-traumatic. Mouth: Mucous membranes are dry. Lungs : Equal chest rise bilaterally, no use of accessory muscles, trachea is midline. CV : Rate and rhythm are normal. Abdomen : Soft, ND, NT, no g/r/m Extremities : No edema. Upper extremities are normal bilaterally. Back : non-tender to palpation, no CVA tenderness. Data 01/02/23 12:36 01/02/23 10:48 Micro: Microbiology 01/02/23 12:42 Blood Culture - Preliminary Blood SPECIMEN COLLECTED 01/02/23 12:36 Blood Culture - Preliminary Blood SPECIMEN COLLECTED A&P Assessment and plan (1) Upper gastrointestinal hemorrhage: Is a 77-year-old female who presents to the hospital complaining of hematemesis and coffee-ground emesis. She has history of large amount of ibuprofen intake. After complete review of the history, physical examination and clinical data I think the most appropriate course of action will be to start the patient with high-dose PPI, IV hydration, maintain patient n.p.o. I have offer upper endoscopy with possible bleeding control, this can be done tomorrow after initial resuscitation. I have explained all the risks and benefits of the procedure to the patient and the daughter the risks include but or not limited to perforation of the esophagus, stomach, duodenum requiring emergent surgical intervention and transfer to higher level of care, ongoing bleeding, damage to soft tissue of the mouth in the throat, abdominal pain, after discussion of all the risks patient agrees to proceed. Endoscopy will be scheduled for tomorrow morning. Coding Level of Care Code 79324 Diagnoses Upper gastrointestinal hemorrhage K92.2
[2023-01-02] MEDS: sucralfate 1 gm/10 mL Oral Liq UDC PO ×2 (17:32→22:41)
[2023-01-02] MEDS: sodium chloride 0.9% 1,000 ML 100 ML IV (17:32)
[2023-01-02 17:40] LABS: Troponin(5th) Baseline 11 ng/L (0-10)
[2023-01-02 18:26] LABS: Hematocrit 34.9 % (36-47)
[2023-01-02 18:40] LABS: Procalcitonin 0.07 ng/mL (0-0.5); Thyroid Stimulating Hormone 0.02 uIU/mL (0.27-4.20)
[2023-01-02 19:40] LABS: Troponin 5 2HR 13.07 ng/L (0-10)
[2023-01-02 19:41] LABS: Troponin 5 2HR Delta 2.07 ABS# (0-10)
[2023-01-02] MEDS: pantoprazole 40 mg SDV IVP (20:35)
[2023-01-02] MEDS: acetaminophen 325 mg Tablet 650 MG PO (21:19)
[2023-01-02 22:17] LABS: Adenovirus Not Detected (NOT DETECT); Chlamydia Pneumoniae Not Detected (NOT DETECT); Coronavirus 229E,HKU1,NL63,OC4 Not Detected (NOT DETECT); Human Metapneumovirus Not Detected (NOT DETECT); Human Rhinovirus/Enterovirus Not Detected (NOT DETECT); Influenza A Not Detected (NOT DETECT); Influenza A H1 Not Detected (NOT DETECT); Influenza A H1-2009 Not Detected (NOT DETECT); Influenza A H3 Not Detected (NOT DETECT); Influenza B Not Detected (NOT DETECT); Mycoplasma Pneumoniae Not Detected (NOT DETECT); Parainfluenza Virus Type 1 Not Detected (NOT DETECT); Parainfluenza Virus Type 2 Not Detected (NOT DETECT); Parainfluenza Virus Type 3 Not Detected (NOT DETECT); Parainfluenza Virus Type 4 Not Detected (NOT DETECT); Respiratory Syncytial Virus A Not Detected (NOT DETECT); Respiratory Syncytial Virus B Not Detected (NOT DETECT); SARS-COV-2 Not Detected (NOT DETECT)
[2023-01-02 22:46] LABS: Hematocrit 33.5 % (36-47)
[2023-01-02 23:14] LABS: Troponin 5 6HR 12.81 ng/L (0-10); Troponin 5 6HR Delta 1.81 ng/L (0-12)
[2023-01-03] VITALS (15 sets, daily range): BP systolic 125–188; BP diastolic 60–126; PULSE 72–91; RESP 14–18; TEMP 36.4–37.2; O2SAT 91–96
[2023-01-03 00:42] LABS: Hematocrit 31.6 % (36-47)
[2023-01-03] MEDS: sucralfate 1 gm/10 mL Oral Liq UDC PO ×2 (04:21→13:53)
[2023-01-03 05:04] LABS: Basophils # 0.1 10^3/uL (0.0-0.1); Basophils % 0.6 %; Eosinophils # 0.1 10^3/uL (0.0-0.8); Eosinophils % 0.7 %; Hematocrit 32.4 % (36-47); Lymphocytes # 2.4 10^3/uL (0.8-4.8); Lymphocytes % 20.5 %; Mean Corpuscular Volume 88.3 fl (85-98); Mean Platelet Volume 9.6 fL (7.4-10.4); Monocytes # 1.2 10^3/uL (0.2-0.9); Monocytes % 10.1 %; Neutrophils # 7.75 10^3/uL (1.8-7.7); Neutrophils % 67.8 %; Nucleated Red Blood Cells % 0 %; Platelet Count 238 10^3/cmm (157-399); Red Blood Count 3.67 10^6/uL (3.85-5.65); Red Cell Distribution Width 12.5 % (12.1-15.1); White Blood Count 11.44 10^3/uL (3.29-11.43)
[2023-01-03 05:25] LABS: Blood Urea Nitrogen 11 mg/dL (8-23); Calcium 8.1 mg/dL (8.5-10.5); Carbon Dioxide 20 mmol/L (22-29); Chloride 106 mmol/L (98-107); Glucose 83 mg/dL (65-115); Osmolality Calculated 283 mOsm/kg (285-295); Sodium 137 mmol/L (136-145)
[2023-01-03 05:49] LABS: Anion Gap 13.7 (5-19); Potassium 2.7 mmol/L (3.5-5.1)
[2023-01-03] MEDS: levothyroxine 75 mcg Tablet PO (06:09)
[2023-01-03] MEDS: sodium chloride 0.9% 1,000 ML 100 ML IV (06:10)
[2023-01-03 08:39] LABS: Hematocrit 34.4 % (36-47)
[2023-01-03 09:24] LABS: Free T4 Free Thyroxine 2.29 ng/dL (0.82-1.77); T3 Free 3.5 PG/ML (2.0-4.4)
[2023-01-03] MEDS: sodium chloride 0.9% 1,000 ML 30 ML IV (09:42)
--- NOTE | 2023-01-03 09:45 | W.PM.OPSFHP ---
Same Day Surgery H&P Indication for Procedure/HPI DATE OF PROCEDURE: January 03, 2023 CHIEF COMPLAINT/INDICATIONFOR SURGICAL PROCEDURE: gi bleeding PREOP DIAGNOSIS: Upper GI Bleeding PLANNED PROCEDURE: Operation Date: 01/03/23 10:00 Proposed Procedures p EGD(Not Applicable) - Jose Alfredo Ordoñez MD Medications/Allergies* Home Medications Medication Instructions Recorded Confirmed Type amlodipine 5 mg tablet 5 mg PO DAILY 09/05/19 01/02/23 History escitalopram oxalate 20 mg tablet 20 mg PO DAILY 09/05/19 01/02/23 History levothyroxine 75 mcg tablet See Rx Instructions .Route .COMPLEX 09/05/19 01/02/23 History (Synthroid) lorazepam 0.5 mg tablet 0.5 mg PO TID PRN Anxiety 09/05/19 01/02/23 History metoclopramide HCl 10 mg tablet 10 mg PO Q6H PRN Nausea 09/05/19 01/02/23 History omeprazole 20 mg capsule,delayed 20 mg PO DAILY 09/05/19 01/02/23 History release atorvastatin 40 mg tablet 40 mg PO BEDTIME 01/02/23 01/02/23 History magnesium 200 mg tablet 200 mg PO DAILY 01/02/23 01/02/23 History potassium chloride 10 mEq 10 meq PO BID 01/02/23 01/02/23 History capsule,extended release Allergies/Adverse Reactions Allergy/AdvReac Type Severity Reaction Status Date / Time Penicillins Allergy Unknown Verified 01/02/23 10:26 Current Medications: Generic Name Dose Route Start Last Admin Trade Name Freq PRN Reason Stop Dose Admin Acetaminophen 650 mg 01/02/23 16:28 01/02/23 21:19 Acetaminophen 325 Mg Tablet PO 650 mg Q6H PRN Administration Mild/Mod Pain Or Temp >/= 101 Sodium Chloride 1,000 mls @ 100 mls/hr 01/02/23 14:45 01/03/23 06:10 Sodium Chloride 0.9% IV 100 mls/hr .Q10H ADOLFO Administration Sodium Chloride 1,000 mls @ 30 mls/hr 01/03/23 09:45 01/03/23 09:42 Sodium Chloride 0.9% IV 01/04/23 09:44 30 mls/hr .Q24H ADOLFO Administration Levothyroxine Sodium 75 mcg 01/03/23 06:00 01/03/23 06:09 Levothyroxine 75 Mcg Tablet PO 75 mcg [id number] ADOLFO Administration Pantoprazole Sodium 40 mg 01/02/23 21:00 01/02/23 20:35 Pantoprazole 40 Mg Sdv IVP 40 mg Q12H ADOLFO Administration Sucralfate 1 gm 01/02/23 17:00 01/03/23 04:21 Sucralfate 1 Gm/10 Ml Oral Liq Udc PO 1 gm Q6H ADOLFO Administration Pertinent History/Comorbid Conditions* Medical History (Updated 01/02/23 @ 16:13 by Wilfred Lea MD) Anxiety GERD (gastroesophageal reflux disease) Hiatal hernia Hypertension Hypothyroidism Surgical History (Updated 09/05/19 @ 00:18 by Tigist Lo MD) H/O breast biopsy History of repair of hiatal hernia Family History (Updated 01/02/23 @ 16:02 by Wilfred Lea MD) TIA (transient ischemic attack) Mother Hypertension Father Social History Smoking and tobacco status: never smoked Alcohol intake: never Substance/Drug Use: never Pertinent Exam Findings alert, oriented x 3, clear to auscultation bilaterally and regular rate & rhythm Recommendations Surgery/Procedure today Coding Level of Care Code Acute Code for Chg Fwd Diagnoses
--- NOTE | 2023-01-03 09:58 | P.ANESASSM_ITS ---
Pre-Anesthetic Assessment Height/Weight: Height 1.57 m Weight 61.235 kg Temp Pulse Resp BP Pulse Ox O2 Del Method 98.6 F 72 18 153/126 96 Room Air 01/03/23 09:34 01/03/23 09:34 01/03/23 09:34 01/03/23 09:34 01/03/23 09:34 01/03/23 09:34 Preop Diagnosis: Upper GI Bleeding Operation Date: 01/03/23 10:00 Proposed Procedures p EGD(Not Applicable) - Jose Alfredo Ordoñez MD Was Beta Carlos taken within 24 hours: N/A Was Clonidine taken within 24 hours: N/A Last intake: Intake Last Liquid Date 01/02/23 Last Liquid Time 23:59 Last Solid Date 01/02/23 Last Solid Time 23:59 Social No alcohol and No tobacco Exam alert, oriented x 3, clear to auscultation bilaterally and regular rate & rhythm Airway Submandibular: within normal limits Cervical ROM: within normal limits Mallampati: Class II Comments: Comments: prominent spradic teeth remaining, aware of risk to dentition History/ROS No significant history except as noted Pulmonary None reported CV/HEM Hypertension Chronic Renal Insufficiency acute on chronic Hepatic None reported GI Gastroesophageal Reflux Disease and Hiatal Hernia bloody emesis Metabolic Thyroid Disease [facility] [place] None reported Neuropsych Dementia prior intracerebral hemorrhage Anesthetic Plan ASA status: 3 Anesthesia: Anesthesia Evaluation and MAC Risk of > 500 ml blood loss (7ml/kg in children): Yes, adequate IV access and fluids planned Other Pertinent Information daughter at bedside, consent provided Medications/Allergies Home Medications Medication Instructions Recorded Confirmed Last Taken Type amlodipine 5 mg tablet 5 mg PO DAILY 09/05/19 01/02/23 01/02/23 History escitalopram oxalate 20 mg tablet 20 mg PO DAILY 09/05/19 01/02/23 01/02/23 History levothyroxine 75 mcg tablet See Rx Instructions .Route .COMPLEX 09/05/19 01/02/23 01/01/23 History (Synthroid) lorazepam 0.5 mg tablet 0.5 mg PO TID PRN Anxiety 09/05/19 01/02/23 Unknown History metoclopramide HCl 10 mg tablet 10 mg PO Q6H PRN Nausea 09/05/19 01/02/23 01/02/23 History omeprazole 20 mg capsule,delayed 20 mg PO DAILY 09/05/19 01/02/23 01/02/23 History release atorvastatin 40 mg tablet 40 mg PO BEDTIME 01/02/23 01/02/23 01/01/23 History magnesium 200 mg tablet 200 mg PO DAILY 01/02/23 01/02/23 01/02/23 History potassium chloride 10 mEq 10 meq PO BID 01/02/23 01/02/23 01/02/23 History capsule,extended release Allergies Allergy/AdvReac Type Severity Reaction Status Date / Time Penicillins Allergy Unknown Verified 01/02/23 10:26 Current Medications Generic Name Dose Route Start Last Admin Trade Name Freq PRN Reason Stop Dose Admin Acetaminophen 650 mg 01/02/23 16:28 01/02/23 21:19 Acetaminophen 325 Mg Tablet PO 650 mg Q6H PRN Administration Mild/Mod Pain Or Temp >/= 101 Sodium Chloride 1,000 mls @ 100 mls/hr 01/02/23 14:45 01/03/23 06:10 Sodium Chloride 0.9% IV 100 mls/hr .Q10H ADOLFO Administration Sodium Chloride 1,000 mls @ 30 mls/hr 01/03/23 09:45 01/03/23 09:42 Sodium Chloride 0.9% IV 01/04/23 09:44 30 mls/hr .Q24H ADOLFO Administration Levothyroxine Sodium 75 mcg 01/03/23 06:00 01/03/23 06:09 Levothyroxine 75 Mcg Tablet PO 75 mcg [id number] ADOLFO Administration Pantoprazole Sodium 40 mg 01/02/23 21:00 01/02/23 20:35 Pantoprazole 40 Mg Sdv IVP 40 mg Q12H ADOLFO Administration Sucralfate 1 gm 01/02/23 17:00 01/03/23 04:21 Sucralfate 1 Gm/10 Ml Oral Liq Udc PO 1 gm Q6H ADOLFO Administration PFSH Anesthesia Medical History (Updated 01/02/23 @ 16:13 by Wilfred Lea MD) Anxiety GERD (gastroesophageal reflux disease) Hiatal hernia Hypertension Hypothyroidism Surgical History H/O breast biopsy History of repair of hiatal hernia Family History (Updated 01/02/23 @ 16:02 by Wilfred Lea MD) Mother TIA (transient ischemic attack) Father Hypertension Social History Smoking and tobacco status: never smoked Alcohol intake: never Substance/Drug Use: never Data Anesthesia 01/03/23 08:25 01/03/23 04:20 Short CBC 01/02/23 01/02/23 01/02/23 Range/Units 10:48 12:36 18:09 WBC 16.04 H (3.29-11.43) 10^3/uL Hgb 14.10 12.20 11.90 (11.27-16.99) g/dL Hct 40.9 36.7 34.9 L (36-47) % MCV 86.7 (85-98) fl Plt Count 360 (157-399) 10^3/cmm Neut % (Auto) 81.6 % Neut # (Auto) 13.08 H (1.8-7.7) 10^3/uL 01/02/23 01/03/23 01/03/23 Range/Units 22:35 00:30 04:20 WBC 11.44 H (3.29-11.43) 10^3/uL Hgb 11.20 L 11.00 L 11.00 L (11.27-16.99) g/dL Hct 33.5 L 31.6 L 32.4 L (36-47) % MCV 88.3 (85-98) fl Plt Count 238 D (157-399) 10^3/cmm Neut % (Auto) 67.8 % Neut # (Auto) 7.75 H (1.8-7.7) 10^3/uL 01/03/23 Range/Units 08:25 WBC (3.29-11.43) 10^3/uL Hgb 11.60 (11.27-16.99) g/dL Hct 34.4 L (36-47) % MCV (85-98) fl Plt Count (157-399) 10^3/cmm Neut % (Auto) % Neut # (Auto) (1.8-7.7) 10^3/uL BMP 01/02/23 01/03/23 10:48 04:20 Sodium 134 L 137 Potassium 2.9 L 2.7 L* Chloride 94 L 106 Carbon Dioxide 24 20 L BUN 22 11 Creatinine 1.4 H 0.7 Glucose 128 H 83 Calcium 10.1 8.1 L Cardiac Enzymes 01/02/23 01/02/23 01/02/23 Range/Units 16:25 18:25 22:35 Troponin T Baseline 11 H (0-10) ng/L Troponin T 120 Minute 13.07 H (0-10) ng/L Delta Troponin T 2.07 (0-10) ABS# Troponin T Hi Sens 6Hr 12.81 H (0-10) ng/L Troponin T Hi Sens 6Hr Delta 1.81 (0-12) ng/L Liver Function 01/02/23 Range/Units 10:48 Total Bilirubin 0.7 (0.15-1.2) mg/dL AST 14 (0-32) U/L ALT 14 (0-33) U/L Alkaline Phosphatase 187 H (35-105) U/L Albumin 4.4 (3.5-5.2) g/dL Urine 01/02/23 Range/Units 12:50 Urine Color Yellow (Yellow) Urine Appearance Clear (CLEAR) Urine pH 6.5 (5-7) Ur Specific [place] 1.005 (1.005-1.030) Urine Protein Neg (Negative) Urine Glucose (UA) Norm (Normal) Urine Ketones Negative (Negative) Urine Nitrate Negative (Negative) Urine Bilirubin Neg (Negative) Ur Leukocyte Esterase Negative (Negative) Blood Bank 01/02/23 10:48 Blood Type A Positive Rho(D) Type Positive Antibody Screen Negative COVID Results 01/02/23 20:30 Coronavirus 229E (PCR) Not detected SARS-CoV-2 (PCR) Not detected Coags 01/02/23 01/02/23 10:45 10:48 PT 13.30 INR 0.98 APTT 26.6 C-Reactive Protein 3.0 Microbiology 01/02/23 12:42 Blood Culture - Preliminary Blood SPECIMEN COLLECTED 01/02/23 12:36 Blood Culture - Preliminary Blood SPECIMEN COLLECTED Cardiac Studies: No Data to Display
--- NOTE | 2023-01-03 10:15 | PM.MISC ---
Miscellaneous Note Purpose of Documentation: Update of patient care Note: Upper endoscopy was done, show evidence of multiple erosions on the antrum of the stomach, no changes in the duodenum. No need for therapeutic intervention. Patient can continue on twice a day pantoprazole for 6 weeks and twice a day Carafate for 6 weeks. I will see her in my office in 2 to 4 weeks and we will plan for another endoscopy with biopsy.
--- NOTE | 2023-01-03 11:42 | CT_ITS ---
WS: [id number] CT LUMBAR SPINE TECHNIQUE: Noncontrast CT of the lumbar spine with coronal and sagittal reformatted images. CLINICAL INFORMATION: low back pain COMPARISON: None. DLP: 425.[address] scans at [place] use at least one of these dose optimization techniques: automated e xposure control; mA and/or kV adjustment per patient size (includes targeted exams where dose is matc hed to clinical indication); or iterative reconstruction. FINDINGS: Mild lumbar curve. No acute compression. Disc narrowing worse at L1-L5 with endplate degenerative norris nges. No acute compression fractures. RIGHT renal parenchymal scarring. Partially visualized LEFT renal cysts. L1-L2: Mild disc osteophyte complex with endplate ridging. Mild facet arthropathy. Mild bilateral for aminal narrowing. L2-L3: Disc osteophyte complex with mild central canal stenosis. Mild facet arthropathy. Mild LEFT gr eater than RIGHT foraminal narrowing. L3-L4: Disc osteophyte complex with slight impingement RIGHT subarticular recess. Mild to moderate RI GHT foraminal narrowing. Moderate facet arthropathy. L4-L5: Disc osteophyte complex with moderate central canal stenosis. Impingement traversing L5 nerve roots. Moderate facet arthropathy. Mild to moderate LEFT and mild RIGHT foraminal narrowing. L5-S1: Disc osteophyte complex with endplate ridging. Mild central canal stenosis. Impingement on the traversing S1 nerve roots. Mild to moderate bilateral foraminal narrowing. Moderate facet arthropath y. Visualized pelvic bony structures: Normal. Paravertebral soft tissues: Normal. IMPRESSION: 1. Mild lumbar curve with moderate spondylitic changes. No acute compression fractures. 2. Mild central canal stenosis L2-3 and L3-4. Moderate central canal stenosis L4-5. 3. Mild to moderate bilateral L5-S1 bony foraminal narrowing. 4. Mild to moderate RIGHT L3-4 and LEFT L4-5 foraminal narrowing.
[2023-01-03] MEDS: escitalopram 10 mg Tablet 20 MG PO (11:48)
[2023-01-03] MEDS: pantoprazole 40 mg SDV IVP ×2 (11:48→21:33)
--- NOTE | 2023-01-03 11:50 | PC.NURSE ---
IV infiltrated when charge nurse was giving IV meds. Advised pt that she will need new IV so that K-rider can be administered, pt refused until I'm done eating, I'm starving . Advised charge nurse who ok'd that we wait.
[2023-01-03 12:15] LABS: Magnesium 1.8 mg/dL (1.7-2.3)
--- NOTE | 2023-01-03 12:58 | PM.PN ---
Subjective Subjective: patient was seen postop, she denies chest pain, no shortness of breath, discussed EGD findings, likely related to ibuprofen use, will need to stop ibuprofen on discharge, will have to manage her back pain she does that she has intractable back pain, for which she has been using ibuprofen [id number] daily, we will try tramadol as an option for her to eventually go home on, as she is having severe back pain and Alisha do a CT of her lumbar spine, she does have severe hypokalemia, potassium 2.7 she has not received any IV replacement, I will to start IV replacement when she reaches the floors, will have to recheck her potassium levels in the evening time is can take over 8 hours of potassium to run, I do not feel that she is safe enough to go home with a potassium of 2.7 so we will have to keep her here in the hospital potentially overnight she voices understanding, will recheck her hemoglobin overnight also Vitals/I&O/Wt Last Vital Signs Temp 97.5 F L 01/03/23 11:11 Pulse 89 01/03/23 12:19 Resp 16 01/03/23 12:19 BP 163/67 01/03/23 11:11 Pulse Ox 94 01/03/23 12:19 O2 Del Method Room Air 01/03/23 12:19 01/02/23 01/03/23 01/03/23 22:59 06:59 14:59 Intake Total 2150 / 2150 1000 / 3150 200 / 200 Balance 2150 / 2150 1000 / 3150 200 / 200 Weight last 48 hrs Weight 61.235 kg Physical Exam Const: COMMON NORMALS: no acute distress and patient oriented x3 Resp: COMMON NORMALS: normal respiratory effort, No retractions, No use of accessory muscles and clear to auscultation bilaterally AUSCULTATION: clear to auscultation bilaterally Cardio: COMMON NORMALS: regular rate, regular rhythm, S1 normal heart sound present and S2 normal heart sound present RATE: regular rate RHYTHM: regular rhythm HEART SOUNDS: S1 normal heart sound present and S2 normal heart sound present GI: COMMON NORMALS: Normal to inspection, nondistended, normoactive bowel sounds present and non-tender Extremity: COMMON NORMALS: no pedal edema Neuro: COMMON NORMALS: patient oriented x3 Psych: COMMON NORMALS: mental status grossly normal Data 01/03/23 08:25 01/03/23 04:20 Micro: Microbiology 01/02/23 12:42 Blood Culture - Preliminary Blood NEGATIVE TO DATE 01/02/23 12:36 Blood Culture - Preliminary Blood NEGATIVE TO DATE A&P Assessment and plan (1) Upper gastrointestinal hemorrhage: (2) Hernia, hiatal: (3) Gastritis: (4) Anxiety: (5) Hypothyroidism: (6) GERD (gastroesophageal reflux disease): (7) Hypertension: (8) ICH (intracerebral hemorrhage): (9) MIYA (acute kidney injury): (10) Hypokalemia: (11) Intractable back pain: Plan Upper GI bleed -With history of hiatal hernia -With history of current NSAID use -Gastroccult positive -Was hypotensive on admission, remains normotensive, had episode of black tarry emesis on presentation none since 10 AM -Status post EGD Plan -Wean off IV fluids, transition to p.o. diet -hypokalemia, received replacement in ER, remains 2.7 we will require IV replacement of potassium, recheck potassium levels at 9 PM -Protonix 40 IV every 12 hours -Continue Carafate -Monitor for black tarry emesis, monitor hemodynamics closely -Zofran and promethazine for nausea -Monitor hemoglobin at 9 PM -Has intractable back pain, for which she has been using ibuprofen every 4 hours, switch to tramadol, CT lumbar spine - DNR/DNI, Confirmed this with patient and daughter at bedside -SCDs for DVT prophylaxis given GI bleed, history of intracranial bleed Attestations Medical Necessity Statement*: Patient requires hospitalization due to upper GI bleed, now with hypokalemia, monitor hemoglobin, intractable back pain Diagnoses Upper gastrointestinal hemorrhage K92.2 Hernia, hiatal K44.9 Gastritis K29.70 Anxiety F41.9 Hypothyroidism E03.9 GERD (gastroesophageal reflux disease) K21.9 Hypertension I10 ICH (intracerebral hemorrhage) I61.9 MIYA (acute kidney injury) N17.9 Hypokalemia E87.6 Intractable back pain M54.9
[2023-01-03] MEDS: lidocaine 1% 5 ML in potassium chloride premix 100 ML 26.25 ML IV ×2 (13:32→19:06)
[2023-01-03] MEDS: TRAMadol 50 mg Tablet PO (14:30)
[2023-01-03] MEDS: amlodipine 5 mg Tablet PO (15:58)
[2023-01-03] MEDS: LORazepam 0.5 mg Tablet PO (17:25)
[2023-01-03] MEDS: HYDROcodone-acetaminophen 5-325 mg Tablet 1 TAB PO (19:04)
[2023-01-03 21:16] LABS: Basophils # 0.1 10^3/uL (0.0-0.1); Basophils % 0.4 %; Eosinophils # 0.1 10^3/uL (0.0-0.8); Eosinophils % 0.9 %; Lymphocytes # 2.3 10^3/uL (0.8-4.8); Lymphocytes % 17.6 %; Mean Corpuscular HGB Conc 33.1 g/dL (30-55); Mean Corpuscular Hemoglobin 29.9 pg (27-33); Mean Corpuscular Volume 90.2 fl (85-98); Mean Platelet Volume 8.7 fL (7.4-10.4); Monocytes # 1.2 10^3/uL (0.2-0.9); Monocytes % 8.9 %; Neutrophils # 9.25 10^3/uL (1.8-7.7); Neutrophils % 71.9 %; Nucleated Red Blood Cells % 0 %; Platelet Count 257 10^3/cmm (157-399); Red Blood Count 3.88 10^6/uL (3.85-5.65); Red Cell Distribution Width 12.8 % (12.1-15.1); White Blood Count 12.88 10^3/uL (3.29-11.43)
[2023-01-03 21:49] LABS: Anion Gap 14.3 (5-19); Blood Urea Nitrogen 9 mg/dL (8-23); Calcium 8.4 mg/dL (8.5-10.5); Carbon Dioxide 21 mmol/L (22-29); Chloride 103 mmol/L (98-107); Glucose 113 mg/dL (65-115); Osmolality Calculated 279 mOsm/kg (285-295); Potassium 3.3 mmol/L (3.5-5.1); Sodium 135 mmol/L (136-145)
[2023-01-04] MEDS: sucralfate 1 gm/10 mL Oral Liq UDC PO (00:38)
[2023-01-04 03:59] VITALS: BP 154/81; PULSE 61; RESP 15; TEMP 36.9; O2SAT 96
[2023-01-04 05:27] LABS: Basophils # 0.1 10^3/uL (0.0-0.1); Basophils % 0.5 %; Eosinophils # 0.3 10^3/uL (0.0-0.8); Eosinophils % 2.7 %; Hematocrit 34.7 % (36-47); Lymphocytes # 2.4 10^3/uL (0.8-4.8); Lymphocytes % 24.6 %; Mean Corpuscular HGB Conc 32.9 g/dL (30-55); Mean Corpuscular Hemoglobin 29.8 pg (27-33); Mean Corpuscular Volume 90.8 fl (85-98); Mean Platelet Volume 8.8 fL (7.4-10.4); Monocytes # 1.1 10^3/uL (0.2-0.9); Monocytes % 10.8 %; Neutrophils # 5.96 10^3/uL (1.8-7.7); Neutrophils % 60.8 %; Nucleated Red Blood Cells % 0 %; Platelet Count 252 10^3/cmm (157-399); Red Blood Count 3.82 10^6/uL (3.85-5.65); Red Cell Distribution Width 12.8 % (12.1-15.1)
[2023-01-04 05:53] LABS: Blood Urea Nitrogen 10 mg/dL (8-23); Calcium 8.4 mg/dL (8.5-10.5); Carbon Dioxide 22 mmol/L (22-29); Chloride 103 mmol/L (98-107); Glucose 95 mg/dL (65-115); Osmolality Calculated 275 mOsm/kg (285-295); Sodium 133 mmol/L (136-145)
[2023-01-04 06:00] VITALS: PULSE 71
[2023-01-04 08:00] VITALS: BP 153/84; PULSE 71; PULSE 79; RESP 16; TEMP 36.6; O2SAT 93
[2023-01-04] MEDS: pantoprazole 40 mg SDV IVP (08:18)
[2023-01-04] MEDS: amlodipine 5 mg Tablet PO (08:18)
[2023-01-04] MEDS: escitalopram 10 mg Tablet 20 MG PO (08:18)
--- NOTE | 2023-01-04 10:11 | PM.DCS ---
Discharge Providers Date of Admission: 01/02/23 14:54 Date of Discharge: January 04, 2023 Attending Provider at Admission: Wilfred Lea MD Attending Provider at Discharge: Wilfred Lea MD Primary Care Provider: Alfred Chambers MD Diagnoses at Discharge Discharge Diagnosis (1) Upper gastrointestinal hemorrhage: Status: Acute (2) Hernia, hiatal: Status: Acute (3) Gastritis: Status: Acute (4) Anxiety: Status: Acute (5) Hypothyroidism: Status: Acute (6) GERD (gastroesophageal reflux disease): Status: Acute (7) Hypertension: Status: Acute (8) ICH (intracerebral hemorrhage): Status: Acute (9) MIYA (acute kidney injury): Status: Acute (10) Hypokalemia: Status: Resolved (11) Intractable back pain: Status: Acute Reason for Visit Reason for Visit: phys sent, vomit, dizzy Hospital Course Hospital Course mee Burks is a 77 year old female past medical history of TIA, history of CVA, history of recent hospitalization at [facility] for intracranial bleed, taken off aspirin, history of chronic back pain for which she uses ibuprofen 200 mg 4 tablets every 6 hours for pain, hypothyroidism, anxiety, hypertension, who presents to [facility] for black tarry emesis.? Patient tells me that roughly a month ago she was Air-Evac from [facility] to [facility], for concerns for an intracranial mass that was bleeding, at [facility], they told her that it was an intracranial bleed, that it was stroke, and that there was 2 areas that were monitoring, they conservatively managed but she had an extensive work-up including a lumbar puncture, they also also treated her for sepsis at that time.? She has a home health care nurse, she tells me that Friday morning there is nothing on the ordinary, her home health care nurse saw her that day checked her vitals and she was doing okay.? Roughly at about 5 PM yesterday she started to feel nauseous and started having black tarry emesis, she tells me that she had many episodes enough to soak her bed, she continued to have episodes throughout the night and did not go to sleep, family initially thought it food poisoning, but she really had not eaten anything, she then went to urgent care, and there which she was told to come to the emergency room, she had 1 episode of black tarry emesis at about 10 AM, which was positive for Gastroccult, was hypotensive on examination blood pressures 90s over 50s, currently she is alert oriented x3, no recurrent nausea, no vomiting, since about 10 AM, blood pressure 154/95, saturating 95% on room air, temp 98, daughter is at bedside, she denies any previous transfusions in the past, she has never had an EGD, but does report a history of a hiatal hernia for which she had surgery 11 years ago go at [facility] and had complications thereafter, her hemoglobin is 12.2 This is a 77-year-old female was admitted to [facility] for concerns for upper GI bleed related to NSAID use, Gastroccult positive, status post EGD, found to have multiple erosions in the antrum of the stomach, will discharge on Protonix, Carafate with a close follow-up with general surgery in 2 to 4 weeks. Patient was advised to abstain from nonsteroidal anti-inflammatory drugs. Have Dr. Chambers recheck her CBC on Friday. If she were to have any bloody or black stools or bloody vomit or black tarry vomit to go to the emergency room. For her severe intractable back pain for which she was using a significant amount of ibuprofen for showed IMPRESSION: 1.? Mild lumbar curve with moderate spondylitic changes. No acute compression fractures. 2.? Mild central canal stenosis L2-3 and L3-4. Moderate central canal stenosis L4-5. 3.? Mild to moderate bilateral L5-S1 bony foraminal narrowing. 4.? Mild to moderate RIGHT L3-4 and LEFT L4-5 foraminal narrowing. -Received pain control as inpatient, -Patient tolerated tramadol 50 mg every 6 hours as needed, it controlled her back pain well, I have given her 7-day supply I would strongly recommend for her to get tramadol as outpatient to help with pain control, improve her pain control for mobility -I have also discharged on gabapentin for neuropathic pain, 300 mg at bedtime -Patient was advised to not use tramadol or gabapentin with lorazepam, monitor for lightheadedness dizziness, do not drive or operate machinery or drink while taking medication, if any lightheadedness or dizziness to go to the emergency room, follow-up with Dr. Chambers on Friday, follow-up with Dr. Martínez Physical Exam Const: COMMON NORMALS: no acute distress and patient oriented x3 Resp: COMMON NORMALS: normal respiratory effort, No retractions, No use of accessory muscles and clear to auscultation bilaterally AUSCULTATION: clear to auscultation bilaterally Cardio: COMMON NORMALS: regular rate, regular rhythm, S1 normal heart sound present and S2 normal heart sound present RATE: regular rate RHYTHM: regular rhythm HEART SOUNDS: S1 normal heart sound present and S2 normal heart sound present GI: COMMON NORMALS: Normal to inspection, nondistended, normoactive bowel sounds present and non-tender Extremity: COMMON NORMALS: no pedal edema Neuro: COMMON NORMALS: patient oriented x3 Psych: COMMON NORMALS: mental status grossly normal Discharge Data Studies Completed and Pending Completed Studies During Hospitalization Category Date Time Status CT abdomen pelvis w con* [id number] Stat Cat Scan 01/02/23 11:[address] lumbar spine wo con* [id number] Routine Cat Scan 01/03/23 11:42 Completed XR chest 1V portable [id number] Stat Exams 01/02/23 11:30 Completed Pending at discharge Category Date Time Status Basic Metabolic Panel AM LABS Lab 01/05/23 04:00 Ordered Blood Culture Stat Lab 01/02/23 12:42 Results Complete Blood Count w/Auto AM LABS Lab 01/05/23 04:00 Ordered Leukocyte Reduced RBC Routine Lab 01/02/23 10:48 Results Type and Screen Stat Lab 01/02/23 10:48 Results Radiology Impressions Chest X-Ray 01/02/23 11:30 IMPRESSION: Mild left basilar subsegmental atelectasis. Laboratory Results WBC 9.80 10^3/uL (3.29-11.43) 01/04/23 04:43 RBC 3.82 10^6/uL (3.85-5.65) L 01/04/23 04:43 Hgb 11.40 g/dL (11.27-16.99) 01/04/23 04:43 Hct 34.7 % (36-47) L 01/04/23 04:43 MCV 90.8 fl (85-98) 01/04/23 04:43 MCH 29.8 pg (27-33) 01/04/23 04:43 MCHC 32.9 g/dL (30-55) 01/04/23 04:43 RDW 12.8 % (12.1-15.1) 01/04/23 04:43 Plt Count 252 10^3/cmm (157-399) 01/04/23 04:43 MPV 8.8 fL (7.4-10.4) 01/04/23 04:43 Neut % (Auto) 60.8 % 01/04/23 04:43 Lymph % (Auto) 24.6 % 01/04/23 04:43 [place] % (Auto) 10.8 % 01/04/23 04:43 Eos % (Auto) 2.7 % 01/04/23 04:43 Baso % (Auto) 0.5 % 01/04/23 04:43 Neut # (Auto) 5.96 10^3/uL (1.8-7.7) 01/04/23 04:43 Lymph # (Auto) 2.4 10^3/uL (0.8-4.8) 01/04/23 04:43 [place] # (Auto) 1.1 10^3/uL (0.2-0.9) H 01/04/23 04:43 Eos # (Auto) 0.3 10^3/uL (0.0-0.8) 01/04/23 04:43 Baso # (Auto) 0.1 10^3/uL (0.0-0.1) 01/04/23 04:43 Nucleated RBC % (auto) 0 % 01/04/23 04:43 Nucleated RBCs # 0.0 /100WBC 01/04/23 04:43 PT 13.30 SECONDS (12.1-14.9) 01/02/23 10:48 INR 0.98 (0.8-1.2) 01/02/23 10:48 APTT 26.6 SECONDS (23.9-36.7) 01/02/23 10:48 Sodium 133 mmol/L (136-145) L 01/04/23 04:43 Potassium 3.0 mmol/L (3.5-5.1) L 01/04/23 04:43 Chloride 103 mmol/L (98-107) 01/04/23 04:43 Carbon Dioxide 22 mmol/L (22-29) 01/04/23 04:43 Anion Gap 11.0 (5-19) 01/04/23 04:43 BUN 10 mg/dL (8-23) 01/04/23 04:43 Creatinine 0.8 mg/dL (0.5-0.9) 01/04/23 04:43 GFR Calculation Not Reportable 01/04/23 04:43 Glucose 95 mg/dL (65-115) 01/04/23 04:43 Calculated Osmolality 275 mOsm/kg (285-295) L 01/04/23 04:43 Lactic Acid 3.0 mmol/L (0.5-2.2) H 01/02/23 10:48 Lactic Acid (Sepsis) 2.2 mmol/L (0.5-2.2) 01/02/23 14:02 Calcium 8.4 mg/dL (8.5-10.5) L 01/04/23 04:43 Magnesium 1.8 mg/dL (1.7-2.3) 01/03/23 04:20 Total Bilirubin 0.7 mg/dL (0.15-1.2) 01/02/23 10:48 AST 14 U/L (0-32) 01/02/23 10:48 ALT 14 U/L (0-33) 01/02/23 10:48 Alkaline Phosphatase 187 U/L (35-105) H 01/02/23 10:48 Troponin T Baseline 11 ng/L (0-10) H 01/02/23 16:25 Troponin T 120 Minute 13.07 ng/L (0-10) H 01/02/23 18:25 Delta Troponin T 2.07 ABS# (0-10) 01/02/23 18:25 Troponin T Hi Sens 6Hr 12.81 ng/L (0-10) H 01/02/23 22:35 Troponin T Hi Sens 6Hr Delta 1.81 ng/L (0-12) 01/02/23 22:35 C-Reactive Protein 3.0 mg/L (0.0-4.9) 01/02/23 10:45 Total Protein 7.4 g/dL (6.6-8.7) 01/02/23 10:48 Albumin 4.4 g/dL (3.5-5.2) 01/02/23 10:48 Globulin 3.0 g/dL (1.3-4.6) 01/02/23 10:48 Procalcitonin 0.07 ng/mL (0-0.5) 01/02/23 10:45 TSH 0.02 uIU/mL (0.27-4.20) L 01/02/23 10:45 Free T4 2.29 ng/dL (0.82-1.77) H 01/03/23 04:20 Free T3 3.5 PG/ML (2.0-4.4) 01/03/23 04:20 Urine Color Yellow (Yellow) 01/02/23 12:50 Urine Appearance Clear (CLEAR) 01/02/23 12:50 Urine pH 6.5 (5-7) 01/02/23 12:50 Ur Specific [place] 1.005 (1.005-1.030) 01/02/23 12:50 Urine Protein Neg (Negative) 01/02/23 12:50 Urine Glucose (UA) Norm (Normal) 01/02/23 12:50 Urine Ketones Negative (Negative) 01/02/23 12:50 Urine Blood Neg (Negative) 01/02/23 12:50 Urine Nitrate Negative (Negative) 01/02/23 12:50 Urine Bilirubin Neg (Negative) 01/02/23 12:50 Urine Urobilinogen Norm mg/dL (Negative) 01/02/23 12:50 Ur Leukocyte Esterase Negative (Negative) 01/02/23 12:50 Nasal Influ A H1 2008 PCR Not detected (NOT DETECT) 01/02/23 20:30 Gastric Occult Blood Positive (Negative) H 01/02/23 10:31 Adenovirus (PCR) Not detected (NOT DETECT) 01/02/23 20:30 C. pneumoniae DNA (PCR) Not detected (NOT DETECT) 01/02/23 20:30 Coronavirus 229E (PCR) Not detected (NOT DETECT) 01/02/23 20:30 Human Metapneumovir PCR Not detected (NOT DETECT) 01/02/23 20:30 Influenza A (H1) PCR Not detected (NOT DETECT) 01/02/23 20:30 Influenza A (H3) PCR Not detected (NOT DETECT) 01/02/23 20:30 Influenza Type A (PCR) Not detected (NOT DETECT) 01/02/23 20:30 Influenza Type B (PCR) Not detected (NOT DETECT) 01/02/23 20:30 M. pneumoniae (PCR) Not detected (NOT DETECT) 01/02/23 20:30 Parainfluenza 1 (PCR) Not detected (NOT DETECT) 01/02/23 20:30 Parainfluenza 2 (PCR) Not detected (NOT DETECT) 01/02/23 20:30 Parainfluenza 3 (PCR) Not detected (NOT DETECT) 01/02/23 20:30 Parainfluenza 4 (PCR) Not detected (NOT DETECT) 01/02/23 20:30 RSV Type A (PCR) Not detected (NOT DETECT) 01/02/23 20:30 RSV Type B (PCR) Not detected (NOT DETECT) 01/02/23 20:30 Entero/Rhino (PCR) Not detected (NOT DETECT) 01/02/23 20:30 SARS-CoV-2 (PCR) Not detected (NOT DETECT) 01/02/23 20:30 Blood Type A Positive 01/02/23 10:48 Rho(D) Type Positive 01/02/23 10:48 Antibody Screen Negative 01/02/23 10:48 Crossmatch See Detail 01/02/23 10:48 Vitals Last Vital Signs Temp 97.8 F 01/04/23 08:00 Pulse 79 01/04/23 08:00 Resp 16 01/04/23 08:00 BP 153/84 01/04/23 08:00 Pulse Ox 93 01/04/23 08:00 O2 Del Method Room Air 01/04/23 03:59 Discharge Plan Discharge Patient Disposition: Home Health Service Condition: Stable Prescriptions: New tramadol 50 mg Tablet 50 mg PO Q6H PRN (Reason: Moderate Pain) 7 Days Qty: 28 0RF gabapentin 300 mg capsule 300 mg PO BEDTIME 30 Days Qty: 30 0RF Protonix 40 mg tablet,delayed release (DR/EC) 40 mg PO BID 30 Days Qty: 60 0RF Carafate 1 gram tablet 1 g PO BID 28 Days Qty: 56 0RF Continued amlodipine 5 mg Tablet 5 mg PO DAILY escitalopram oxalate 20 mg Tablet 20 mg PO DAILY metoclopramide HCl 10 mg Tablet 10 mg PO Q6H PRN (Reason: Nausea) Rx Instructions: take this medicine 1/2 hour before a meal. levothyroxine [Synthroid] 75 mcg tablet See Rx Instructions .ROUTE .COMPLEX Rx Instructions: 75 mcg orally mon, wed, friday lorazepam 0.5 mg tablet 0.5 mg PO TID PRN (Reason: Anxiety) atorvastatin 40 mg tablet 40 mg PO BEDTIME potassium chloride 10 mEq capsule, extended release 10 meq PO BID magnesium 200 mg Tablet 200 mg PO DAILY Discontinued omeprazole 20 mg capsule,delayed release(DR/EC) 20 mg PO DAILY Discharge Orders: Discharge Order (Routine); Ordered 01/04/23 Ordered By: Wilfred Lea Referrals: [facility] [Outside] Peng Martínez DO [Physician] - 1 week (We have notified your physician's clinic of the need for a follow-up appointment to be scheduled. If you have not heard from them within the next 2 business days, please call them directly. You may also reach out to our furniture manager at [phone] and she can assist you.) Alfred Chambers MD [Primary Care Provider] - 1-3 days (Please call friday to schedule an appointment with Dr. Chambers office. ) Discharge Diet: Cardiac Discharge Activity: Resume usual activity Patient Instructions: Sucralfate (By mouth), Gabapentin (By mouth), Tramadol (By mouth), GI Bleeding, Intracerebral Hemorrhage (DC), GI Discharge Instructions, Opioid Safety Activity Restrictions/Additional Instructions: - Please avoid ibuprofen or naproxen, or Aleve, or any nonsteroidal anti-inflammatory drug -Please use tramadol sparingly for back pain, do not drive operate machinery or drink while taking medication if you feel lightheaded or dizzy please stop taking medication, do not use with lorazepam -I have discharged you on a 7-day supply of tramadol, to help with your severe intractable back pain, follow-up with Dr. Chambers -I have sent you home on gabapentin 300 mg at bedtime, monitor for lightheadedness or dizziness, if so stop taking the medication -Please follow-up with Dr. Martínez in 1 week -I have Dr. Chambers recheck your potassium and your hemoglobin on Friday Discharge Attestations Time Spent in Discharge Care*: greater than 30 min Quality Metrics Clinical Quality Measures [ No reported AMI, CVA or VTE this stay] Coding Level of Care Code 80524 Total time (in minutes) for Discharge: 45 Diagnoses Upper gastrointestinal hemorrhage K92.2 Hernia, hiatal K44.9 Gastritis K29.70 Anxiety F41.9 Hypothyroidism E03.9 GERD (gastroesophageal reflux disease) K21.9 Hypertension I10 ICH (intracerebral hemorrhage) I61.9 MIYA (acute kidney injury) N17.9 Hypokalemia E87.6 Intractable back pain M54.9
[2023-01-04] MEDS: potassium chloride ER 20 mEq Tablet PO (10:37)
[2023-01-04] MEDS: potassium chloride ER 20 mEq Tablet 40 MEQ PO (10:38)
[2023-01-04 11:21] VITALS: BP 153/84; PULSE 79; RESP 16; TEMP 36.6; O2SAT 93
== END 2023-01-04 11:22 | disposition home health service (06) | DRG 378 ==
LOC: ER 14:05 → MEDSURG 14:56
PROVIDERS: Surgery; Admitting Provider Family Medicine; Emergency Provider Emergency Medicine; PCP Family Medicine; Visit Provider Family Medicine
PROC: 0DJ08ZZ Inspection of Upper Intestinal Tract, Via Natural or Artificial Opening Endoscopic (ICD-10-PCS; CPT 43235; principal; 2023-01-03 10:00)
DX: K29.71 Gastritis, unspecified, with bleeding (principal); N17.9 Acute kidney failure, unspecified; T39.315A Adverse effect of propionic acid derivatives, initial encounter; Z86.73 Personal history of transient ischemic attack (TIA), and cerebral infarction without residual deficits; G89.29 Other chronic pain; M54.9 Dorsalgia, unspecified; E03.9 Hypothyroidism, unspecified; F41.9 Anxiety disorder, unspecified; I10 Essential (primary) hypertension; I95.9 Hypotension, unspecified; K21.9 Gastro-esophageal reflux disease without esophagitis; K44.9 Diaphragmatic hernia without obstruction or gangrene; E87.6 Hypokalemia; Z66 Do not resuscitate; K92.0 Hematemesis
CPT/HCPCS: 36415; 43235; 71045; 72131; 74177; 80048; 80053; 81003; 82271; 83605; 83735; 84145; 84439; 84443; 84481; 84484; 85014; 85018; 85025; 85610; 85730; 86140; 86850; 86900; 86920; 87040; 87486; 87581; 87633; 93005; 96361; 96365; 96375; 99285; C9113; J0696; J2371; J2704; J3010; J3480; J7030; Q9967

== ENCOUNTER → 2023-01-14 08:43 | Outpatient (BNVA) | payer MEDICARE, SELFPAY | PROVIDERS: PCP Family Medicine; Visit Provider Surgery | DX: Z09 Encounter for follow-up examination after completed treatment for conditions other than malignant neoplasm (principal) | CPT/HCPCS: 72110; 99203; 99213 ==

== ENCOUNTER 2023-01-16 16:21 | Outpatient (CLI) | payer MEDICARE, SELFPAY ==
--- NOTE | 2023-01-16 16:45 | MR_ITS ---
WS: [id number] MRI LUMBAR SPINE NONCONTRAST HISTORY: lower back pain COMPARISON: CT 01/03/2023 TECHNIQUE: Sagittal and axial multisequence imaging is submitted. On the sagittal survey of the cervical and thoracic spine there is multilevel disc space narrowing wi th osteophytes and disc bulges. Straightening and slight reversal of the normal lumbar lordosis. Advanced degenerative disc disease a nd osteophytosis and facet arthritis throughout the lumbar spine. There is a small amount of marrow e monster in the adjacent endplates of L1 and L2 no compression fractures. No fluid along the disc at L1-2 . Conus terminates normally at L1-2 disc level. L1-L2: Diffuse moderate annular disc bulging and osteophytic ridging encroaching upon the thecal sac. Mild encroachment upon the subarticular recesses. Moderate disc encroachment into the foramina. Best seen on the sagittal image is a probable disc protrusion in the LEFT foramen. L2-L3: Diffuse annular disc bulging, osteophytic ridging and facet arthritis. Bilateral foraminal dis c protrusions. Mild central, subarticular recess and moderate foraminal stenosis. L3-L4: Diffuse annular disc bulging with osteophytic ridging, ligamentum flavum and facet arthritis. Mild central with moderate bilateral subarticular recess and foraminal stenosis L4-L5: Marked annular disc bulging and osteophytic ridging. Moderate ligamentum flavum and facet arth ritis. There is a small central disc protrusion. Moderate to severe central with severe bilateral sub articular recess and foraminal stenosis. L5-S1: Diffuse annular disc bulging and osteophytic ridging. Marked ligamentum flavum arthritis. Disc contacts the S1 nerve roots bilaterally. Near complete effacement of fat in the foramina. Moderate c entral with moderate to severe bilateral subarticular recess and foraminal stenosis. Moderate atrophy of the RIGHT kidney. Bilateral acquired renal cysts. IMPRESSION: 1. Advanced multilevel spondylitic changes throughout the lumbar spine. Significant degenerative dunn ges in the disc, facets and areas of stenosis. 2. L4-5: Moderate to severe central with severe bilateral subarticular recess and foraminal stenosis. Most significant encroachment upon the traversing L5 nerve roots. 3. L5-S1: Moderate central with moderate to severe bilateral subarticular recess and foraminal stenos is. 4. L3-4: Mild central with moderate bilateral subarticular recess and foraminal stenosis. 5. L2-3: Mild central, subarticular recess and moderate foraminal stenosis. 6. Small amount of marrow edema in the adjacent endplates of L1 and L2. Probably reactive edema. No f racture seen. No fluid cleft along the disc to suggest discitis.
== END 2023-01-16 16:22 | disposition home or self-care (01) ==
PROVIDERS: PCP Family Medicine; Visit Provider Physician Assistant
DX: M51.37 Other intervertebral disc degeneration, lumbosacral region (principal); M48.07 Spinal stenosis, lumbosacral region; M47.817 Spondylosis without myelopathy or radiculopathy, lumbosacral region
CPT/HCPCS: 72148; 99203

== ENCOUNTER → 2023-02-06 07:51 | Outpatient (BNVA) | payer MEDICARE, SELFPAY | PROVIDERS: PCP Family Medicine; Visit Provider Orthopaedic Surgery | DX: M48.062 Spinal stenosis, lumbar region with neurogenic claudication (principal) | CPT/HCPCS: 99214 ==

== ENCOUNTER 2023-02-07 07:53 | Day surgery (SDC) | payer MEDICARE, SELFPAY ==
--- NOTE | 2023-02-07 06:58 | P.HPUD_ITS ---
Surgery/Procedure H&P Update DATE OF PROCEDURE: February 07, 2023 DATE H&P PERFORMED: 01/14/23 H&P UPDATE INFORMATION: I have reviewed H&P completed within last 30 days, I have examined patient prior to procedure, No changes to prior documentation and H&[place] is in [facility] [place] on date indicated PLANNED PROCEDURE: Operation Date: 02/07/23 08:55 Proposed Procedures p EGD 40937,K21.9(Not Applicable) - Jose Alfredo Ordoñez MD
[2023-02-07 08:08] VITALS: BP 151/119; PULSE 84; RESP 18; TEMP 36.1; O2SAT 98; BMI 25.2
[2023-02-07] MEDS: sodium chloride 0.9% 1,000 ML 30 ML IV (08:12)
--- NOTE | 2023-02-07 08:47 | ANES.PREANE2 ---
Pre-Anesthetic Assessment Height/Weight: Height 1.5 m Weight 56.699 kg Temp Pulse Resp BP Pulse Ox O2 Del Method 97 F L 84 18 151/119 98 Room Air 02/07/23 08:08 02/07/23 08:08 02/07/23 08:08 02/07/23 08:08 02/07/23 08:08 02/07/23 08:08 Preop Diagnosis: GERD REFLUX DISEASE egd Familial anesthetic complications: NONE Was Beta Carlos taken within 24 hours: N/A Last intake: Intake Last Liquid Date 02/07/23 Last Liquid Time 0700 SIPS WITH MEDS Last Solid Date 02/06/23 Last Solid Time 22:00 Social No alcohol and No tobacco Exam alert, oriented x 3, clear to auscultation bilaterally and regular rate & rhythm Airway Submandibular: within normal limits Cervical ROM: within normal limits Mallampati: Class II Dentition: partials Comments: Comments: Multiple missing Pulmonary None reported CV/HEM Hypertension None reported Hepatic None reported GI Gastroesophageal Reflux Disease denies reflux at this moment. Metabolic Hyperlipidemia and Thyroid Disease Musc/skel Weakness (cane) Neuropsych Cerebrovascular Accident (ICH 11/21/22 questionable possible Ca+ deposit) follow up in 1 year recommended. symptoms resolved. Anesthetic Plan ASA status: 3 Anesthesia: MAC Medications/Allergies Home Medications Medication Instructions Recorded Confirmed Last Taken Type amlodipine 5 mg tablet 5 mg PO DAILY 09/05/19 02/06/23 02/07/23 07:30 History escitalopram oxalate 20 mg tablet 20 mg PO DAILY 09/05/19 02/06/23 02/06/23 History lorazepam 0.5 mg tablet 0.5 mg PO TID PRN Anxiety 09/05/19 02/06/23 02/06/23 History metoclopramide HCl 10 mg tablet 10 mg PO TID PRN Nausea 09/05/19 02/07/23 02/07/23 07:30 History (Reglan) potassium chloride 10 mEq 10 meq PO BID 01/02/23 02/06/23 02/06/23 History capsule,extended release levothyroxine 50 mcg tablet 50 mcg PO DAILY 02/05/23 02/06/23 02/07/23 07:30 History (Synthroid) pantoprazole 40 mg tablet,delayed 40 mg PO BID 02/05/23 02/06/23 02/06/23 History release (Protonix) simvastatin 10 mg tablet 10 mg PO BEDTIME 02/05/23 02/06/23 02/06/23 History tramadol 50 mg tablet 50 mg PO Q6H PRN Pain 7 days #28 02/06/23 02/07/23 02/06/23 Rx tabs Allergies Allergy/AdvReac Type Severity Reaction Status Date / Time Penicillins Allergy Unknown Verified 02/06/23 08:03 Current Medications Generic Name Dose Route Start Last Admin Trade Name Freq PRN Reason Stop Dose Admin Sodium Chloride 1,000 mls @ 30 mls/hr 02/07/23 08:00 02/07/23 08:12 Sodium Chloride 0.9% IV 02/08/23 07:59 30 mls/hr .Q24H ADOLFO Administration PFSH Anesthesia Medical History Anxiety GERD (gastroesophageal reflux disease) Hiatal hernia Hypertension Hypothyroidism Surgical History H/O breast biopsy History of repair of hiatal hernia Family History Mother TIA (transient ischemic attack) Father Hypertension Social History Smoking and tobacco/nicotine status: never used tobacco/nicotine Alcohol intake: never Substance/Drug Use: never Data Anesthesia Cardiac Studies: No Data to Display
[2023-02-07 09:35] VITALS: BP 167/87; PULSE 83; RESP 14; TEMP 36.5; O2SAT 92
[2023-02-07 09:40] VITALS: BP 166/88; PULSE 82; RESP 16; O2SAT 95
[2023-02-07 09:50] VITALS: BP 159/100; PULSE 79; RESP 18; O2SAT 96
[2023-02-07 09:55] VITALS: BP 176/92; PULSE 77; RESP 18; O2SAT 96
== END 2023-02-07 10:10 | disposition home or self-care (01) ==
PROVIDERS: PCP Family Medicine; Visit Provider Surgery
PROC: 0DJ08ZZ Inspection of Upper Intestinal Tract, Via Natural or Artificial Opening Endoscopic (ICD-10-PCS; CPT 43235; principal; 2023-02-07 08:55)
DX: K21.9 Gastro-esophageal reflux disease without esophagitis (principal); K29.50 Unspecified chronic gastritis without bleeding; I10 Essential (primary) hypertension; E78.5 Hyperlipidemia, unspecified; Z86.73 Personal history of transient ischemic attack (TIA), and cerebral infarction without residual deficits; E03.9 Hypothyroidism, unspecified
CPT/HCPCS: 43239; 88305; 88342; J2704; J7030

== ENCOUNTER → 2023-02-24 13:09 | Outpatient (BNVA) | payer MEDICARE, SELFPAY | PROVIDERS: PCP Family Medicine; Visit Provider Surgery | DX: Z09 Encounter for follow-up examination after completed treatment for conditions other than malignant neoplasm (principal) | CPT/HCPCS: 99213 ==

== ENCOUNTER 2023-08-02 18:57 | Inpatient (IN) | payer MEDICARE, SELFPAY ==
[2023-08-02] VITALS (13 sets, daily range): BP systolic 145–207; BP diastolic 85–113; PULSE 86–110; RESP 14–27; TEMP 36.7; O2SAT 96–100
--- NOTE | 2023-08-02 18:59 | XRR_ITS ---
PROCEDURE INFORMATION: Exam: XR Chest Exam date and time: 08/02/2023 8:22 PM Age: 78 years old Clinical indication: Pain; Chest pressure; Prior surgery; Surgery date: 6+ months; Surgery type: Hiatal hernia. Breast biopsy; Patient HX: Cp with n/v TECHNIQUE: Imaging protocol: Radiologic exam of the chest. Views: 1 view. COMPARISON: CR XR chest 1V portable [id number] 01/02/2023 11:39 AM FINDINGS: Lungs: Emphysematous changes. Left lower lobe atelectasis versus minimal infiltrate. Right upper lobe calcified granuloma. Pleural spaces: Unremarkable. No pleural effusion. No pneumothorax. Heart/Mediastinum: Mild cardiomegaly. Hiatal hernia suspected. Bones/joints: Unremarkable. XR/XR chest 1V portable [id number] IMPRESSION: 1. Mild cardiomegaly. 2. Hiatal hernia suspected. 3. Emphysematous changes. 4. Left lower lobe atelectasis versus minimal infiltrate. 5. Right upper lobe calcified granuloma.
--- NOTE | 2023-08-02 18:59 | ECG_ITS ---
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 Measurements Intervals [place] Rate: 101 P: 28 NC: 154 QRS: -34 QRSD: 86 T: 18 QT: 348 QTc: 453 Interpretive Statements SINUS TACHYCARDIA POSSIBLE LEFT ATRIAL ENLARGEMENT [-0.1mV P-WAVE IN V1/V2] PATTERN CONSISTENT WITH PULMONARY DISEASE POSSIBLE RIGHT VENTRICULAR CONDUCTION DELAY [RSR (QR) IN V1/V2] INFERIOR MYOCARDIAL INFARCTION , PROBABLY OLD [40+ ms Q WAVE AND/OR ST/T ABNORMALITY IN II/aVF] Compared to ECG 01/02/2023 16:40:02 Myocardial infarct finding now present Sinus rhythm no longer present Electronically Signed On 08-03-2023 8:13:09 CDT by Tucker Villela M.D. [id number]
[2023-08-02 19:30] LABS: Basophils # 0.1 10^3/uL (0.0-0.1); Basophils % 0.5 %; Eosinophils # 0.1 10^3/uL (0.0-0.8); Eosinophils % 0.9 %; Hematocrit 44.9 % (36-47); Lymphocytes # 2.7 10^3/uL (0.8-4.8); Lymphocytes % 17.6 %; Mean Corpuscular HGB Conc 33.6 g/dL (30-55); Mean Corpuscular Hemoglobin 27.7 pg (27-33); Mean Corpuscular Volume 82.2 fl (85-98); Mean Platelet Volume 8.5 fL (7.4-10.4); Monocytes # 0.8 10^3/uL (0.2-0.9); Monocytes % 5.2 %; Neutrophils # 11.64 10^3/uL (1.8-7.7); Neutrophils % 75.2 %; Nucleated Red Blood Cells % 0 %; Platelet Count 464 10^3/cmm (157-399); Red Blood Count 5.46 10^6/uL (3.85-5.65); Red Cell Distribution Width 14.1 % (12.1-15.1); White Blood Count 15.47 10^3/uL (3.29-11.43)
[2023-08-02 19:43] LABS: INR 0.91 (0.8-1.2)
[2023-08-02 19:49] LABS: Troponin(5th) Baseline 8 ng/L (0-10)
[2023-08-02 19:52] LABS: Alanine Aminotransferase 8 U/L (0-33); Albumin Level 4.5 g/dL (3.5-5.2); Alkaline Phosphatase 268 U/L (35-105); Anion Gap 16.7 (5-19); Aspartate Amino Transferase 15 U/L (0-32); Blood Urea Nitrogen 9 mg/dL (8-23); Calcium 9.7 mg/dL (8.5-10.5); Carbon Dioxide 22 mmol/L (22-29); Chloride 99 mmol/L (98-107); Creatinine Clr Calc Pharmacy 40.1618; Glucose 99 mg/dL (65-115); Lipase 56 U/L (13-60); Osmolality Calculated 279 mOsm/kg (285-295); Sodium 135 mmol/L (136-145); Total Bilirubin 0.6 mg/dL (0.15-1.2); Total Protein 7.5 g/dL (6.6-8.7)
[2023-08-02 19:55] LABS: Potassium 2.7 mmol/L (3.5-5.1)
--- NOTE | 2023-08-02 20:13 | CTR_ITS ---
PROCEDURE INFORMATION: Exam: CT Abdomen And Pelvis With Contrast Exam date and time: 08/02/2023 8:33 PM Age: 78 years old Clinical indication: Vomiting; Prior surgery; Surgery date: 6+ months; Surgery type: Hiatal hernia. Breast biopsy; Patient HX: Hematemesis. History of sbo. TECHNIQUE: Imaging protocol: Computed tomography of the abdomen and pelvis with contrast. Radiation optimization: All CT scans at this facility use at least one of these dose optimization techniques: automated exposure control; mA and/or kV adjustment per patient size (includes targeted exams where dose is matched to clinical indication); or iterative reconstruction. Contrast material: OMNI 350; Contrast volume: 80 ml; Contrast route: INTRAVENOUS (IV); COMPARISON: CT abdomen pelvis w con* [id number] 01/02/2023 11:47 AM RADIATION DOSE METRICS: Total DLP (mGy-cm): 340.01 FINDINGS: Lungs: Emphysematous changes. Diaphragm: Moderate to large hiatal hernia. Liver: Normal. No mass. Gallbladder and bile ducts: Mild gallbladder wall thickening suspected, ultrasound could further evaluate this. Pancreas: Normal. No ductal dilation. Spleen: Normal. No splenomegaly. Adrenal glands: Normal. No mass. Kidneys and ureters: Left kidney cysts, negative for follow up. Stomach and bowel: Prominent fluid in the stomach, please correlate for gastritis. Moderate constipation. Diverticulosis without diverticulitis. Appendix: No evidence of appendicitis. Intraperitoneal space: Unremarkable. No free air. No significant fluid collection. Vasculature: Unremarkable. No abdominal aortic aneurysm. Lymph nodes: Unremarkable. No enlarged lymph nodes. Urinary bladder: Unremarkable as visualized. Reproductive: Unremarkable as visualized. Bones/joints: Unremarkable. No acute fracture. Soft tissues: Unremarkable. CT/CT abdomen pelvis w con* [id number] IMPRESSION: 1. Prominent fluid in the stomach, please correlate for gastritis. 2. Moderate constipation. 3. Diverticulosis without diverticulitis. 4. Left kidney cysts, negative for follow up. 5. Emphysematous changes. 6. Moderate to large hiatal hernia. 7. Mild gallbladder wall thickening suspected, ultrasound could further evaluate this.
--- NOTE | 2023-08-02 20:15 | PC.NURSE ---
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
--- NOTE | 2023-08-02 20:20 | ED_ITS ---
HPI - Nausea/Vomiting/Diarrhea 2 General: Chief complaint: Nausea/Vomiting/Diarrhea Stated complaint: n/v, chest pain Time Seen by Provider: 08/02/23 20:13 Source: patient Mode of arrival: ambulatory Limitations: no limitations History of Present Illness: 78-year-old female states over the last 2 days has had vomiting states stated vomiting has been much worse she has not been able to tolerate anything p.o. she had some slight abdominal discomfort she has been out of her Protonix she denies any blood in her vomitus she had no diarrhea. She had some generalized weakness she denies any fever. Associated nausea: Yes Associated symtoms: Reports nausea; Denies chest pain or headache(s) Review of Systems 2 Const: Denies: fever(s), chills, body aches or change in appetite ENMT: Denies: throat pain or dental pain Card: Denies: chest pain Resp: Denies: dyspnea GI: Reports: nausea and vomiting; Denies: abdominal pain or diarrhea Musc: Denies: neck pain or back pain Skin/Breast: Denies: rash Neuro: Denies: headache(s) PFSH ED 2 PFSH: Medical History Hiatal hernia Anxiety Hypothyroidism GERD (gastroesophageal reflux disease) Hypertension Surgical History H/O breast biopsy History of repair of hiatal hernia Family History Mother TIA (transient ischemic attack) Father Hypertension Social History Smoking and tobacco/nicotine status: never used tobacco/nicotine Alcohol intake: never Substance/Drug Use: never Physical Exam 2 Const: COMMON NORMALS: patient oriented x3 HENMT: COMMON NORMALS: normocephalic and atraumatic HEAD & SCALP: n ormocephalic and atraumatic Eye: COMMON NORMALS: Equal, round and reactive pupils present and EOMs intact bilaterally PUPIL: Yes Equal, round and reactive pupils present Neck/C-Spine: COMMON NORMALS: full ROM and supple Chest: COMMONS NORMALS: normal inspection of the chest and normal palpation of entire chest wall Resp: COMMON NORMALS: normal respiratory effort, No retractions, No use of accessory muscles and clear to auscultation bilaterally AUSCULTATION: clear to auscultation bilaterally Cardio: COMMON NORMALS: regular rate, regular rhythm and No murmurs present (Cardio) RATE: regular rate RHYTHM: regular rhythm GI: COMMON NORMALS: Normal to inspection, nondistended, normoactive bowel sounds present, Soft to palpation, non-tender and no masses PALPATION: Yes Soft to palpation Extremity: COMMON NORMALS: normal to inspection and full ROM Neuro: COMMON NORMALS: patient oriented x3, moves all extremities and no focal motor deficits Psych: COMMON NORMALS: mental status grossly normal, Normal thought process present and cooperative THOUGHT PROCESS: Normal thought process present Skin: COMMON NORMALS: no rashes or lesions noted and no wounds GENERAL SKIN EXAM: no rashes or lesions noted Course 2 Vital Signs: Vital signs: Vital Signs Pulse Rate 93 08/02/23 20:45 Respiratory Rate 22 H 08/02/23 20:45 Blood Pressure 180/113 08/02/23 20:45 Pulse Oximetry 98 08/02/23 20:45 Oxygen Delivery Me thod Room Air 08/02/23 20:45 MDM - Nausea/Vomiting/Diarrhea Medical Decision Making Patient presents here with vomiting she is also hypokalemic she is continue to have some vomiting here vitals here been normal CT shows a gastritis no other findings will admit for potassium replacement along with her vomiting Medical Records I reviewed the patient's medical records. Lab Data I reviewed the patient's lab results. 08/02/23 19:26 08/02/23 19:26 Radiology Impressions Chest X-Ray 08/02/23 18:59 IMPRESSION: 1. Mild cardiomegaly. 2. Hiatal hernia suspected. 3. Emphysematous changes. 4. Left lower lobe atelectasis versus minimal infiltrate. 5. Right upper lobe calcified granuloma. Abdomen/Pelvis CT 08/02/23 20:13 IMPRESSION: 1. Prominent fluid in the stomach, please correlate for gastritis. 2. Moderate constipation. 3. Diverticulosis without diverticulitis. 4. Left kidney cysts, negative for follow up. 5. Emphysematous changes. 6. Moderate to large hiatal hernia. 7. Mild gallbladder wall thickening suspected, ultrasound could further evaluate this. Laboratory Results WBC 15.47 10^3/uL (3.29-11.43) H 08/02/23 19: RBC 5.46 10^6/uL (3.85-5.65) 08/02/23 19: Hgb 15.10 g/dL (11.27-16.99) 08/02/23 19: Hct 44.9 % (36-47) 08/02/23 19: MCV 82.2 fl (85-98) L 08/02/23 19: MCH 27.7 pg (27-33) 08/02/23 19: MCHC 33.6 g/dL (30-55) 08/02/23 19: RDW 14.1 % (12.1-15.1) 08/02/23: Plt Count 464 10^3/cmm (157-399) H 08/02/23 19: MPV 8.5 fL (7.4-10.4) 08/02/23 19: Neut % (Auto) 75.2 % 08/02/23 19: Lymph % (Auto) 17.6 % 08/02/23 19: [place]et % (Auto) 5.2 % 08/02/23 19: Eos % (Auto) 0.9 % 08/02/23: Baso % (Auto) 0.5 % 08/02/23 19: Neut # (Auto) 11.64 10^3/uL (1.8-7.7) H 08/02/23: Lymph # (Auto) 2.7 10^3/uL (0.8-4.8) 08/02/23 19: [place] # (Auto) 0.8 10^3/uL (0.2-0.9) 08/02/23 19: Eos # (Auto) 0.1 10^3/uL (0.0-0.8) 08/02/23: Baso # (Auto) 0.1 10^3/uL (0.0-0.1) 08/02/23 19: Nucleated RBC % (auto) 0 % 08/02/23: Nucleated RBCs # 0.0 /100WBC 08/02/23 19: PT 12.50 SECONDS (12.1-14.9) 08/02/23 19:26 INR 0.91 (0.8-1.2) 08/02/23 19:26 Sodium 135 mmol/L (136-145) L 08/02/23 19:26 Potassium 2.7 mmol/L (3.5-5.1) L* 08/02/23 19:26 Chloride 99 mmol/L (98-107) 08/02/23 19:26 Carbon Dioxide 22 mmol/L (22-29) 08/02/23 19:26 Anion Gap 16.7 (5-19) 08/02/23 19:26 BUN 9 mg/dL (8-23) 08/02/23 19:26 Creatinine 1.0 mg/dL (0.5-0.9) H 08/02/23 19:26 GFR Calculation Not Reportable 08/02/23 19:26 Glucose 99 mg/dL (65-115) 08/02/23 19:26 Calculated Osmolality 279 mOsm/kg (285-295) L 08/02/23 19:26 Calcium 9.7 mg/dL (8.5-10.5) 08/02/23 19:26 Magnesium 1.7 mg/dL (1.7-2.3) 08/02/23 19:26 Total Bilirubin 0.6 mg/dL (0.15-1.2) 08/02/23 19:26 AST 15 U/L (0-32) 08/02/23 19:26 ALT 8 U/L (0-33) 08/02/23 19:26 Alkaline Phosphatase 268 U/L (35-105) H 08/02/23 19:26 Troponin T Baseline 8 ng/L (0-10) 08/02/23 19:26 Total Protein 7.5 g/dL (6.6-8.7) 08/02/23 19:26 Albumin 4.5 g/dL (3.5-5.2) 08/02/23 19:26 Globulin 3.0 g/dL (1.3-4.6) 08/02/23 19:26 Lipase 56 U/L (13-60) 08/02/23 19:26 All radiology interpretation(s) finalized by discharge EKG Data EKG 1: I personally reviewed and interpreted this EKG as follows: EKG interpretation date: 08/02/23 EKG interpretation time: 20:55 Interpretation: nsr hr [address] or t wave abnormalities qrs 89 qtc 440 Discharge Plan Discharge Patient Disposition: Admitted As Inpatient Clinical Impression: Vomiting, Hypokalemia Condition: Stable Prescriptions: No Action tramadol 50 mg tablet 50 mg PO Q6H PRN (Reason: Pain) 7 Days Qty: 28 0RF pantoprazole [Protonix] 40 mg tablet,delayed release (DR/EC) 40 mg PO BID 30 Days Qty: 60 5RF polyethylene glycol 3350 [Miralax] 17 gram/dose powder 17 g PO ONCE 28 Days Qty: 476 0RF amlodipine 5 mg Tablet 5 mg PO DAILY escitalopram oxalate 20 mg Tablet 20 mg PO DAILY metoclopramide HCl [Reglan] 10 mg Tablet 10 mg PO TID PRN (Reason: Nausea) Rx Instructions: take this medicine 1/2 hour before a meal. lorazepam 0.5 mg tablet 0.5 mg PO TID PRN (Reason: Anxiety) potassium chloride 10 mEq capsule, extended release 10 meq PO BID simvastatin 10 mg tablet 10 mg PO BEDTIME levothyroxine [Synthroid] 50 mcg Tablet 50 mcg PO DAILY Referrals: Alfred Chambers MD [Primary Care Provider] - Coding Level of Care Code ED 3D Specialist for Alondra Quevedo
[2023-08-02] MEDS: iohexol 350 mg/mL 500 mL Btl (per mL) IV (20:36)
[2023-08-02] MEDS: sodium chloride 0.9% 1,000 ML 999 ML IV (20:43)
[2023-08-02] MEDS: ondansetron 2 mg/ML SDV 2 mL 4 MG IVP (20:44)
[2023-08-02] MEDS: pantoprazole 40 mg SDV 80 MG IVP (20:44)
[2023-08-02 20:53] LABS: Magnesium 1.7 mg/dL (1.7-2.3)
--- NOTE | 2023-08-02 20:59 | ECG_ITS ---
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 Measurements Intervals [place] Rate: 89 P: 46 WI: 180 QRS: -30 QRSD: 89 T: 34 QT: 394 QTc: 480 Interpretive Statements SINUS RHYTHM BORDERLINE LEFT AXIS DEVIATION [QRS AXIS < -20] POSSIBLE RIGHT VENTRICULAR CONDUCTION DELAY [RSR (QR) IN V1/V2] Compared to ECG 08/02/2023 19:09:39 Sinus tachycardia no longer present Myocardial infarct finding no longer present Electronically Signed On 08-03-2023 8:17:42 CDT by Tucker Villela M.D. [id number]
[2023-08-02 21:56] LABS: Add Urine Microscopic? NO; Charge for UA Resulting for Rev
[2023-08-02 22:03] LABS: Bilirubin Urine Neg (Negative); Blood Urine Neg (Negative); Glucose Urine UA Norm (Normal); Ketones Urine Negative (Negative); Leukocyte Esterase Urine Negative (Negative); Nitrate Urine Negative (Negative); Protein Urine Neg (Negative); Sulfosalicylic Acid Urine Negative (Negative); Urine Appearance Clear (CLEAR); Urine Color Straw (Yellow); Urobilinogen Urine Neg (Negative); pH Urine 8 (5-7)
[2023-08-02] MEDS: potassium chloride ER 20 mEq Tablet 60 MEQ PO (22:54)
[2023-08-02] MEDS: hyDRALAzine 20 mg/mL INJ 1 mL 5 MG IVP (22:54)
--- NOTE | 2023-08-02 23:18 | P.HP_ITS ---
Providers/Chief Complaint 2 Admitting Physician: Tigist Lo MD Primary Care Provider: Alfred Chambers MD Chief Complaint: n/v, chest pain History of Present Illness Rosalinda Burks is a 78 year old female past medical history of TIA, history of CVA, history of intracranial bleed, h/o multiple erosions in the antrum of the stomach thought to be NSAID induced. Follow-up endoscopy in January 2023 had shown healing of all ulcerations, biopsy had shown mild chronic gastritis. She was recommended to be on Carafate and Protonix, however she ran out of her Protonix prescription a few days ago.. Review of her home medications currently shows she is off NSAIDs however does take potassium chloride 10 mEq twice a day. She presented to the emergency room today complaining of intractable vomiting. States that she has not been able to keep any oral intake down. Denies any fever chills diarrhea or constipation. No noted hematemesis or bleeding. Review of Systems 2 General: Reports: 10 or more systems reviewed and unremarkable except in HPI and below Const: Denies: fever(s), chills or body aches Eyes: Denies: change in vision, blurry vision or photophobia ENMT: Reports: hoarseness; Denies: throat pain, enlarged tonsils, odynophagia or nasal congestion Card: Denies: chest pain, palpitations, irregular heart rhythm, edema, swelling of feet/ankles, lightheadedness, pre-syncope, dyspnea on exertion or orthopnea Resp: Denies: dyspnea, productive cough, non-productive cough, wheezing, stridor, pain on inspiration, change in phlegm color, hemoptysis or chest congestion GI: Denies: abdominal pain, nausea, vomiting, hematemesis, coffee ground emesis, dysphagia, heartburn, diarrhea, constipation, GI cramping, change in stool character, hematochezia or melena : Denies: flank pain, difficulty voiding, dysuria, urinary frequency, urinary urgency, urinary hesitancy or hematuria Musc: Denies: neck pain, back pain, extremity pain, joint swelling, joint warmth or deformity Neuro: Denies: headache(s), numbness in extremities, weakness in extremities, sensory changes, difficulty walking, frequent falls, dizziness, vertigo, behavioral changes, Slurred speech present or seizure-like activity Psych: Denies: anxiety, depression, suicidal ideation or homicidal ideation Endo: Denies: polyuria, polydipsia, tired all the time, cold intolerance or hot flashes Ron/Lymph: Denies: easy bruising or easy bleeding Medications/Allergies Home Medications Medication Instructions Recorded Confirmed Last Taken Type amlodipine 5 mg tablet 5 mg PO DAILY 09/05/19 08/02/23 02/07/23 07:30 History escitalopram oxalate 20 mg tablet 20 mg PO DAILY 09/05/19 08/02/23 02/06/23 History lorazepam 0.5 mg tablet 0.25 mg PO TID Anxiety 09/05/19 08/02/23 02/06/23 History metoclopramide HCl 10 mg tablet 10 mg PO TID PRN Nausea 09/05/19 08/02/23 02/07/23 07:30 History (Reglan) potassium chloride 10 mEq 10 meq PO BID 01/02/23 08/02/23 02/06/23 History capsule,extended release levothyroxine 50 mcg tablet 50 mcg PO DAILY 02/05/23 08/02/23 02/07/23 07:30 History (Synthroid) simvastatin 10 mg tablet 10 mg PO BEDTIME 02/05/23 08/02/23 02/06/23 History tramadol 50 mg tablet 50 mg PO Q6H PRN Pain 7 days #28 02/06/23 08/02/23 02/06/23 Rx tabs pantoprazole 40 mg tablet,delayed 40 mg PO BID 30 days #60 tabs 02/24/23 08/02/23 Unknown Rx release (Protonix) Allergies Allergy/AdvReac Type Severity Reaction Status Date / Time Penicillins Allergy Unknown Verified 08/02/23 19:09 PFSH Acute 2 PFSH: Medical History Hiatal hernia Anxiety Hypothyroidism GERD (gastroesophageal reflux disease) Hypertension Surgical History H/O breast biopsy History of repair of hiatal hernia Family History Mother TIA (transient ischemic attack) Father Hypertension Social History Smoking and tobacco/nicotine status: never used tobacco/nicotine Alcohol intake: never Substance/Drug Use: never Vitals/I&O/Wt Last Vital Signs Pulse 100 08/02/23 23:00 Resp 14 08/02/23 23:00 BP 164/103 08/02/23 23:00 Pulse Ox 99 08/02/23 23:00 O2 Del Method Room Air 08/02/23 20:45 Weight last 48 hrs Weight 56.699 kg Physical Exam 2 Narrative: General: No acute distress, AO x3 HEENT: PERRLA, pupils bilaterally equal and reactive, pallors not present Chest: Normal vesicular breath sounds, no added sounds, equal good air entry bilaterally CVS: S1-S2 regular, no murmurs, no tachycardia, no gallops, no rubs Abdomen: Soft, nontender, no organomegaly, bowel sounds present Neuro: No focal deficits, no facial deformity, AO x3, power 5/5 in all limbs Data 08/03/23 01:23 08/03/23 01:23 Other Labs: CT/CT abdomen pelvis w con* [id number] IMPRESSION: 1. Prominent fluid in the stomach, please correlate for gastritis. 2. Moderate constipation. 3. Diverticulosis without diverticulitis. 4. Left kidney cysts, negative for follow up. 5. Emphysematous changes. 6. Moderate to large hiatal hernia. 7. Mild gallbladder wall thickening suspected, ultrasound could further evaluate this. XR/XR chest 1V portable [id number] IMPRESSION: 1. Mild cardiomegaly. 2. Hiatal hernia suspected. 3. Emphysematous changes. 4. Left lower lobe atelectasis versus minimal infiltrate. 5. Right upper lobe calcified granuloma. A&P Assessment and plan (1) Gastritis: (2) Intractable nausea and vomiting: (3) Thickening of wall of gallbladder: (4) Hypokalemia: (5) Dehydration: Plan 78-year-old lady with a history of gastric ulceration, currently presenting with intractable nausea vomiting and abdominal discomfort. CT of the abdomen and pelvis shows prominent fluid in the stomach, concerning for gastritis. Incidental note made of gallbladder wall thickening, ultrasound of the gallbladder has been ordered to assess for cholecystitis. Empiric ceftriaxone and metronidazole until results of US abdomen can be obtained; likely abx may be discontinued if US negative for cholecytsitis Protonix 40 mg IV every 12 hours Noted to have leukocytosis, thrombocytosis, hypokalemia likely from GI losses from persistent nausea and vomiting. IVD d5NS @ 75 cc/ hr hypokalemia, K at 2.7 Replace KCL via Iv route prn zofran for nausea management Attestations 2 Medical Necessity Statement*: Less than 2 midnight stay anticipated at this time Coding Level of Care Code Acute Code for Chg Fwd Moderate MDM includes number and complexity of problems actively addressed during encounter, amount and/or complexity of data reviewed/ordered and described risk of complication, morbidity or mortality of management as documented Diagnoses Gastritis K29.70 Intractable nausea and vomiting R11.2 Thickening of wall of gallbladder K82.8 Hypokalemia E87.6 Dehydration E86.0
[2023-08-02] MEDS: pantoprazole 40 mg SDV IVP (23:55)
[2023-08-02] MEDS: dextrose 5%-sod chloride 0.9% 1,000 ML 75 ML IV (23:56)
[2023-08-02] MEDS: TRAMadol 50 mg Tablet PO (23:56)
[2023-08-03] VITALS (8 sets, daily range): BP systolic 133–183; BP diastolic 67–83; PULSE 91–109; RESP 16–19; TEMP 36.2–36.7; O2SAT 90–96
[2023-08-03 00:04] LABS: Troponin 5 2HR 8.64 ng/L (0-10); Troponin 5 2HR Delta 0.64 ABS# (0-10)
[2023-08-03] MEDS: hyDRALAzine 20 mg/mL INJ 1 mL 10 MG IVP ×2 (00:24→12:54)
[2023-08-03] MEDS: acetaminophen 325 mg Tablet 650 MG PO ×3 (01:10→18:17)
[2023-08-03] MEDS: LORazepam 0.5 mg Tablet 0.25 MG PO ×3 (01:10→20:26)
[2023-08-03] MEDS: ondansetron 2 mg/ML SDV 2 mL 4 MG IVP ×2 (01:11→18:17)
--- NOTE | 2023-08-03 01:53 | ECG_ITS ---
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 Measurements Intervals [place] Rate: 109 P: 55 MT: 162 QRS: -28 QRSD: 88 T: 51 QT: 367 QTc: 496 Interpretive Statements SINUS TACHYCARDIA BORDERLINE LEFT AXIS DEVIATION [QRS AXIS < -20] ABNORMAL RHYTHM ECG Compared to ECG 08/02/2023 20:55:22 Sinus rhythm no longer present Electronically Signed On 08-03-2023 8:18:23 CDT by Tucker Villela M.D. [id number]
[2023-08-03 02:00] LABS: Basophils # 0.1 10^3/uL (0.0-0.1); Basophils % 0.4 %; Eosinophils % 0.2 %; Hematocrit 40.8 % (36-47); Lymphocytes # 2.1 10^3/uL (0.8-4.8); Lymphocytes % 12.4 %; Mean Corpuscular HGB Conc 34.1 g/dL (30-55); Mean Corpuscular Hemoglobin 27.8 pg (27-33); Mean Corpuscular Volume 81.6 fl (85-98); Mean Platelet Volume 8.8 fL (7.4-10.4); Monocytes # 0.9 10^3/uL (0.2-0.9); Monocytes % 5.5 %; Neutrophils # 13.67 10^3/uL (1.8-7.7); Neutrophils % 81.1 %; Nucleated Red Blood Cells % 0 %; Platelet Count 407 10^3/cmm (157-399); Red Cell Distribution Width 13.8 % (12.1-15.1); White Blood Count 16.84 10^3/uL (3.29-11.43)
[2023-08-03 02:24] LABS: Troponin 5 6HR 10.68 ng/L (0-10); Troponin 5 6HR Delta 2.68 ng/L (0-12)
[2023-08-03 02:49] LABS: Alanine Aminotransferase 7 U/L (0-33); Albumin Level 3.9 g/dL (3.5-5.2); Alkaline Phosphatase 212 U/L (35-105); Anion Gap 15.7 (5-19); Aspartate Amino Transferase 14 U/L (0-32); Blood Urea Nitrogen 7 mg/dL (8-23); Calcium 8.9 mg/dL (8.5-10.5); Carbon Dioxide 19 mmol/L (22-29); Chloride 103 mmol/L (98-107); Creatinine Clr Calc Pharmacy 44.0442; Glucose 145 mg/dL (65-115); Osmolality Calculated 281 mOsm/kg (285-295); Potassium 2.7 mmol/L (3.5-5.1); Sodium 135 mmol/L (136-145); Total Bilirubin 0.6 mg/dL (0.15-1.2); Total Protein 6.9 g/dL (6.6-8.7)
--- NOTE | 2023-08-03 05:54 | USR_ITS ---
PROCEDURE INFORMATION: Exam: US Abdomen, Limited; Right Upper Quadrant Exam date and time: 08/03/2023 7:13 AM Age: 78 years old Clinical indication: Abnormal findings; Abnormal radiologic finding of the abdomen; Radiologic exam and body structure: Ct-gb; Additional info: Evaluate for cholecystitis. , Mild gallbladder wall thickening suspected on CT abdomen, US TECHNIQUE: Imaging protocol: Real time ultrasound of the abdomen with image documentation. Limited exam focused on the right upper quadrant. COMPARISON: CT abdomen pelvis w con* [id number] 08/02/2023 8:33 PM FINDINGS: Liver: Normal. No masses. Gallbladder: No gallstones identified. Minimal wall thickening of the gallbladder measuring up to 4 mm. No pericholecystic edema. Gallbladder is not distended. Biliary ducts: Normal. Measures 4 mm. No dilation. Pancreas: Visualized pancreas is unremarkable. Right kidney: Limited evaluation. Cortical scarring suspected. US/US abdomen limited [id number] IMPRESSION: Nonspecific gallbladder wall thickening without pericholecystic edema or gallstones. No biliary ductal dilatation. Findings are not typical of acute cholecystitis. If there is persistent clinical concern, consider HIDA scan.
[2023-08-03] MEDS: lidocaine 1% 5 ML in potassium chloride premix 100 ML 26.25 ML IV ×2 (06:02→10:41)
[2023-08-03] MEDS: cefTRIAXone 1,000 MG in sodium chloride 0.9% (plus) 50 ML 100 MG IV (06:27)
[2023-08-03] MEDS: metroNIDAZOLE IV 500 MG/100 ML PREMIX 100 MG IV ×3 (07:01→23:03)
[2023-08-03] MEDS: TRAMadol 50 mg Tablet PO ×3 (07:58→23:10)
[2023-08-03] MEDS: amlodipine 5 mg Tablet PO (07:59)
[2023-08-03] MEDS: levothyroxine 50 mcg Tablet PO (07:59)
[2023-08-03] MEDS: escitalopram 10 mg Tablet 20 MG PO (07:59)
[2023-08-03] MEDS: pneumococcal (23 valent) SDV 0.5 mL IM (08:00)
[2023-08-03 11:43] LABS: Iron 36 ug/dL (37-145); Percent Saturation 12.2 % (20-50); Thyroid Stimulating Hormone 0.63 uIU/mL (0.27-4.20); Total Iron Binding Capacity 294 mcg/dl; Unsaturated Iron Binding 258 ug/dL (112-347); Vitamin B12 227 pg/mL (232-1245)
--- NOTE | 2023-08-03 12:26 | P.PN_ITS ---
Subjective 2 Subjective: Admitted overnight. Today morning seen examined at bedside. Patient states feeling slightly better. Blood pressure elevated. Saturating well on room air. Denies any abdominal pain. Vitals/I&O/Wt Last Vital Signs Temp 97.4 F L 08/03/23 08:00 Pulse 91 08/03/23 08:00 Resp 18 08/03/23 08:00 BP 183/81 08/03/23 08:00 Pulse Ox 95 08/03/23 08:00 O2 Del Method Room Air 08/03/23 08:00 08/02/23 08/03/23 08/03/23 22:59 06:59 14:59 Intake Total 1000 / 1000 375 / 375 Balance 1000 / 1000 375 / 375 Weight last 48 hrs Weight 56.047 kg Weight 55.962 kg Weight 56.699 kg Physical Exam 2 Narrative: General: No acute distress, AO x3 HEENT: PERRLA, pupils bilaterally equal and reactive, pallors not present Chest: Normal vesicular breath sounds, no added sounds, equal good air entry bilaterally CVS: S1-S2 regular, no murmurs, no tachycardia, no gallops, no rubs Abdomen: Soft, nontender, no organomegaly, bowel sounds present Neuro: No focal deficits, no facial deformity, AO x3, power 5/5 in all limbs Data 08/03/23 01:23 08/03/23 01:23 Micro: Microbiology 08/03/23 06:50 Blood Culture - Preliminary Blood SPECIMEN COLLECTED 08/03/23 06:50 Blood Culture - Preliminary Blood SPECIMEN COLLECTED A&P Assessment and plan (1) Gastritis: (2) Intractable nausea and vomiting: (3) Thickening of wall of gallbladder: (4) Hypokalemia: (5) Dehydration: (6) Hypertension: Plan 78-year-old lady with a history of gastric ulceration, currently presenting with intractable nausea vomiting and abdominal discomfort. CT of the abdomen and pelvis shows prominent fluid in the stomach, concerning for gastritis. Incidental note made of gallbladder wall thickening, ultrasound of the gallbladder negative for cholecystitis or choledocholithiasis without any biliary dilatation. Patient does not have any transaminitis. Slightly elevated alkaline phosphatase. Plan for HIDA scan. Continue with empiric ceftriaxone and metronidazole until cholecystitis is completely ruled out. High concerns for nausea and vomiting secondary to gastritis. Protonix 40 mg IV every 12 hours. Add Carafate ACHS. Start on clear liquid diet. Continue with normal saline along with D5 at 75 cc/h. Potassium still low. 2.7. Replace with 80 mg oral and 40 mg IV. Repeat potassium level in the afternoon. Zofran as needed. Hypertension: Goal blood pressure less than 140/90 MAG. Blood pressure elevated. Will uptitrate amlodipine to 10 mg daily. Continue with IV hydralazine 10 mg every 4 hours as needed for systolic blood pressure more than 160 mmHg. Vitamin B12 deficiency: Continue with IM cyanocobalamin replacement. CODE STATUS: DNR/DNI as per old documentation. Confirmed. Clear liquid diet Heparin 5000 every 12 hourly for DVT prophylaxis Protonix Attestations 2 Medical Necessity Statement*: Requires further hospitalization for management of intractable nausea and vomiting leading to poor oral intake, hypokalemia and dehydration Diagnoses Gastritis K29.70 Intractable nausea and vomiting R11.2 Thickening of wall of gallbladder K82.8 Hypokalemia E87.6 Dehydration E86.0 Hypertension I10
[2023-08-03] MEDS: pantoprazole 40 mg SDV IVP ×2 (12:52→23:04)
[2023-08-03] MEDS: cyanocobalamin 1,000 mcg/mL SDV 1000 MCG IM (14:13)
[2023-08-03] MEDS: dextrose 5%-sod chloride 0.9% 1,000 ML 75 ML IV (14:14)
[2023-08-03] MEDS: potassium chloride ER 20 mEq Tablet 80 MEQ PO (14:14)
[2023-08-03] MEDS: sucralfate 1 gm/10 mL Oral Liq UDC PO ×2 (16:54→20:26)
--- NOTE | 2023-08-03 20:19 | PC.NURSE ---
Dr. Martinez notified that patient is asking for something to help her sleep, stating that PRN Ativan is not helping. Ordered Benadryl 25 mg x1 and ordered to keep patient's bed alarm on.
[2023-08-03] MEDS: diphenhydrAMINE 25 mg Capsule PO (20:26)
[2023-08-03] MEDS: atorvastatin 40 mg Tablet PO (20:26)
[2023-08-03 22:43] LABS: Potassium 3.5 mmol/L (3.5-5.1)
--- NOTE | 2023-08-03 23:13 | PC.NURSE ---
Patient moving legs frequently in bed. This nurse asked patient if she has restless legs. Patient states yes. This nurse asked patient if she takes anything at home for it. Patient states that she does not take anything at home, but that they gave her something one other time in another hospital and it helped. Patient states she cannot remember the name of it.
[2023-08-04] VITALS (8 sets, daily range): BP systolic 149–162; BP diastolic 69–83; PULSE 78–98; RESP 16–19; TEMP 36.3–36.9; O2SAT 93–97
[2023-08-04 04:56] LABS: Basophils # 0.1 10^3/uL (0.0-0.1); Basophils % 0.5 %; Eosinophils # 0.1 10^3/uL (0.0-0.8); Eosinophils % 0.4 %; Lymphocytes # 2.9 10^3/uL (0.8-4.8); Mean Corpuscular HGB Conc 32.9 g/dL (30-55); Mean Corpuscular Hemoglobin 27.6 pg (27-33); Mean Corpuscular Volume 83.9 fl (85-98); Mean Platelet Volume 8.7 fL (7.4-10.4); Monocytes % 8.5 %; Neutrophils # 7.62 10^3/uL (1.8-7.7); Neutrophils % 65.1 %; Nucleated Red Blood Cells % 0 %; Platelet Count 354 10^3/cmm (157-399); Red Blood Count 4.53 10^6/uL (3.85-5.65); Red Cell Distribution Width 14.4 % (12.1-15.1)
[2023-08-04] MEDS: dextrose 5%-sod chloride 0.9% 1,000 ML 75 ML IV ×2 (05:10→17:50)
[2023-08-04] MEDS: cefTRIAXone 1,000 MG in sodium chloride 0.9% (plus) 50 ML 100 MG IV (05:11)
[2023-08-04 05:12] LABS: Alanine Aminotransferase < 5 U/L (0-33); Albumin Level 3.7 g/dL (3.5-5.2); Alkaline Phosphatase 198 U/L (35-105); Anion Gap 12.9 (5-19); Aspartate Amino Transferase 12 U/L (0-32); Blood Urea Nitrogen 4 mg/dL (8-23); Calcium 8.6 mg/dL (8.5-10.5); Carbon Dioxide 19 mmol/L (22-29); Chloride 110 mmol/L (98-107); Chol HDL Ratio 2.38 mg/dL (0.0-4.40); Cholesterol 131 mg/dL (0-200); Creatinine Clr Calc Pharmacy 44.1111; Globulin 2.8 g/dL (1.3-4.6); Glucose 118 mg/dL (65-115); HDL Cholesterol 55 mg/dL (60-100); LDL Cholesterol Calculated 60 mg/dL (50-129); Magnesium 1.6 mg/dL (1.7-2.3); Osmolality Calculated 286 mOsm/kg (285-295); Sodium 139 mmol/L (136-145); Total Bilirubin 0.6 mg/dL (0.15-1.2); Total Protein 6.5 g/dL (6.6-8.7); Triglycerides 79 mg/dL (0-150); VLDL Cholestrol Calculation 16 mg/dL (0-30)
[2023-08-04 05:24] LABS: Potassium 2.9 mmol/L (3.5-5.1)
[2023-08-04 05:31] LABS: Folate Level 6.8 ng/mL (4.8-37.3)
--- NOTE | 2023-08-04 06:49 | PC.NURSE ---
Patient currently in [facility]. Unable to administer medications that are due at this time.
[2023-08-04] MEDS: sucralfate 1 gm/10 mL Oral Liq UDC PO ×4 (08:56→20:12)
[2023-08-04] MEDS: escitalopram 10 mg Tablet 20 MG PO (08:56)
[2023-08-04] MEDS: potassium chloride ER 20 mEq Tablet 40 MEQ PO (08:56)
[2023-08-04] MEDS: levothyroxine 50 mcg Tablet PO (08:56)
[2023-08-04] MEDS: cyanocobalamin 1,000 mcg/mL SDV 1000 MCG IM (08:56)
[2023-08-04] MEDS: amlodipine 5 mg Tablet 10 MG PO (08:56)
[2023-08-04] MEDS: metroNIDAZOLE IV 500 MG/100 ML PREMIX 100 MG IV ×3 (08:57→22:17)
--- NOTE | 2023-08-04 09:56 | PC.CHAP ---
Pastoral Care Encounter/Spiritual Assessment Type of Contact [] Declined call out clerk visit [] Patient/Family/Request visit [] Outpatient visit [] Follow-up visit [] Physician referral [] Code/Alert [x] Routine visit [] Staff referral [] Actively dying [] Patient sleeping [] Family support [] [] Out of room [] Palliative care [] [x] Receiving care in room [] Pre-surgical visit [] Trauma [] Long length of stay [] ICU visit [] Other: Relational/Emotional Strength [] Patient feels connected with others/family/visitors/staff [] Distress [] Loneliness/isolation [] Abandonment Spirituality of Patient [] Person of Smiley [] Attends Mormon of their Smiley [] Believes in Prayer [] Reads Bible or Amish materials [] There are Spiritual issues to be addressed Ssis Architect Interventions [x] Prayer [] Active listening [] Non-anxious presence [] Spiritual/emotional support [] Crisis/trauma care [] Spiritual counseling [] Bereavement support [] Provided bereavement packet [x] Provided Bible/devotional materials [] Provided toy/stuffed animal, coloring book to patient or family member [] Provided Communion [] Anointing/[place] [] Salvation [] Completed spiritual assessment [] Other: Impact on Illness or Injury [] Angry [] Fearful [] Anxious [] Often cries [] Exhaustion [] Unable to work [] Unable to attend episcopal [] Unable to walk/stand [] Unable to read [] Unable to drive [] Unable to eat/drink [] Unable to sleep [] Unable to be with family [] Patient intubated [] Other: Summary Time spent with patient
[2023-08-04] MEDS: magnesium sulfate premix 2 GM/50 ML PIGGYBACK IV (10:32)
--- NOTE | 2023-08-04 11:05 | PC.SOCIAL ---
IMM Update pg 2 of IMM updated and reviewed w/ patient. Copy provided and copy dated, initialed and placed in chart.
[2023-08-04] MEDS: pantoprazole 40 mg SDV IVP ×2 (11:06→22:17)
--- NOTE | 2023-08-04 12:31 | NM_ITS ---
WS: [id number] NUCLEAR MEDICINE HIDA SCAN WITH GALLBLADDER EJECTION FRACTION HISTORY: concern for cholecystitis, COMPARISON: Ultrasound 08/03/2023, CT 08/02/2023 TECHNIQUE: The patient was intravenously injected with 8.1 mCi of TC99m Mebrofenin. Immediate imaging over the right upper quadrant was followed by 5 minute image and additional images for a total of 60 minutes. Normal uptake of radiotracer throughout the liver. Activity identified in the gallbladder at 15 minutes and well distended by 60 minutes. Activity in the proximal small bowel was seen by 15 minutes. Good washout of the radiotracer from the liver by 60 minutes. The patient then drank 8 ounces of Ensure Plus. Ejection fraction at 60 minutes was 28%. Normal GB ej ection fraction is 35-75%. Post fatty meal symptoms: None. IMPRESSION: 1. No cystic or common bile duct obstruction. Gallbladder fills well with contrast. 2. Abnormal ejection fraction. Gallbladder did not eject well. This may be due to over distention. T he gallbladder appears well distended. Overdistention may be due to long-term fasting. Note: Gallbladder was contracted on the CT from 08/02/2023. Evaluation was limited by CT due to extens meredith motion. No hydrops or stones identified by ultrasound. There was also no pericholecystic fluid.
--- NOTE | 2023-08-04 14:37 | PM.CONSULT ---
Providers/Reason For Consult Consulting Physician/Specialty*: General surgery Reason for Consult*: Nausea and vomit Attending Physician: Stanislaw Gale Primary Care Provider: Alfred Chambers MD History of Present Illness History of Present Illness Rosalinda Burks is a 78 year old female who is known to me for history of gastritis with multiple gastric erosions that was likely due to NSAID use. She was last the scope on January 2023 at that time there was healing of the ulcers and I recommended that she continue on long-term pantoprazole therapy. Patient ran out of pantoprazole about 6 or 7 days ago, she also has taken NSAIDs intermittently. After this she has developed abdominal pain in the epigastrium nausea and vomit. She was admitted with this findings. A CT scan done in the emergency department showed also evidence of a possible gallbladder wall thickening therefore additional studies were obtained including an ultrasound that was negative for cholecystitis and a HIDA scan that showed normal filling of the gallbladder which is a decreased ejection fraction that likely is explained by an upper distended gallbladder due to n.p.o. status. On my evaluation this afternoon patient is doing well abdominal pain has significantly improved as well as symptoms after initiation of therapy as inpatient. Denies fever chills, denies changes in bowel movements, is in good spirits. Review of Systems Narrative: 10 point review of system is done and negative otherwise noted in HPI. Medications/Allergies Home Medications Medication Instructions Recorded Confirmed Last Taken Type amlodipine 5 mg tablet 5 mg PO DAILY 09/05/19 08/02/23 02/07/23 07:30 History escitalopram oxalate 20 mg tablet 20 mg PO DAILY 09/05/19 08/02/23 02/06/23 History lorazepam 0.5 mg tablet 0.25 mg PO TID Anxiety 09/05/19 08/02/23 02/06/23 History metoclopramide HCl 10 mg tablet 10 mg PO TID PRN Nausea 09/05/19 08/02/23 02/07/23 07:30 History (Reglan) potassium chloride 10 mEq 10 meq PO BID 01/02/23 08/02/23 02/06/23 History capsule,extended release levothyroxine 50 mcg tablet 50 mcg PO DAILY 02/05/23 08/02/23 02/07/23 07:30 History (Synthroid) simvastatin 10 mg tablet 10 mg PO BEDTIME 02/05/23 08/02/23 02/06/23 History tramadol 50 mg tablet 50 mg PO Q6H PRN Pain 7 days #28 02/06/23 08/02/23 02/06/23 Rx tabs pantoprazole 40 mg tablet,delayed 40 mg PO BID 30 days #60 tabs 02/24/23 08/02/23 Unknown Rx release (Protonix) Allergies Allergy/AdvReac Type Severity Reaction Status Date / Time Penicillins Allergy Unknown Verified 08/02/23 19:09 Current Medications Generic Name Dose Route Start Last Admin Trade Name Freq PRN Reason Stop Dose Admin Acetaminophen 650 mg 08/02/23 23:13 08/03/23 18:17 Acetaminophen 325 Mg Tablet PO 650 mg Q6H PRN Administration Mild/Mod Pain Or Temp >/= 101 Amlodipine Besylate 10 mg 08/04/23 09:00 08/04/23 08:56 Amlodipine 5 Mg Tablet PO 10 mg DAILY ADOLFO Administration Atorvastatin Calcium 40 mg 08/03/23 21:00 08/03/23 20:26 Atorvastatin 40 Mg Tablet PO 40 mg BEDTIME ADOLFO Administration Cyanocobalamin 1,000 mcg 08/03/23 12:30 08/04/23 08:56 Cyanocobalamin 1,000 Mcg/Ml Sdv IM 1,000 mcg DAILY ADOLFO Administration Escitalopram Oxalate 20 mg 08/03/23 09:00 08/04/23 08:56 Escitalopram 10 Mg Tablet PO 20 mg DAILY ADOLFO Administration Hydralazine HCl 10 mg 08/02/23 23:13 08/03/23 12:54 Hydralazine 20 Mg/Ml Inj 1 Ml IVP 10 mg Q4H PRN Administration SBP > 160 Dextrose/Sodium Chloride 1,000 mls @ 75 mls/hr 08/02/23 23:15 08/04/23 05:10 Dextrose 5%-Sod Chloride 0.9% IV 75 mls/hr .[id number] ADOLFO Administration Ceftriaxone Sodium 1,000 mg/ 50 mls @ 100 mls/hr 08/03/23 06:00 08/04/23 06:51 Sodium Chloride IV Infused Q24H ADOLFO Infusion Protocol Metronidazole 500 mg in 100 mls @ 100 mls/hr 08/03/23 07:00 08/04/23 10:10 Flagyl Iv IV Infused Q8H ADOLFO Infusion Protocol Levothyroxine Sodium 50 mcg 08/03/23 09:00 08/04/23 08:56 Levothyroxine 50 Mcg Tablet PO 50 mcg DAILY ADOLFO Administration Lorazepam 0.25 mg 08/02/23 23:16 08/03/23 20:26 Lorazepam 0.5 Mg Tablet PO 0.25 mg TID PRN Administration anxiety Ondansetron HCl 4 mg 08/02/23 23:13 08/03/23 18:17 Ondansetron 2 Mg/Ml Sdv 2 Ml IVP 4 mg Q8H PRN Administration vomiting, or N/V if npo Pantoprazole Sodium 40 mg 08/02/23 23:15 08/04/23 11:06 Pantoprazole 40 Mg Sdv IVP 40 mg Q12H ADOLFO Administration Sucralfate 1 gm 08/03/23 17:00 08/04/23 11:06 Sucralfate 1 Gm/10 Ml Oral Liq Udc PO 1 gm AC&BEDTIME ADOLFO Administration Tramadol HCl 50 mg 08/02/23 23:16 08/03/23 23:10 Tramadol 50 Mg Tablet PO 50 mg Q6H PRN Administration SEVERE PAIN PFSH Acute PFSH: Medical History (Updated 08/04/23 @ 14:45 by Jose Alfredo Ordoñez MD) Hiatal hernia Anxiety Hypothyroidism GERD (gastroesophageal reflux disease) Hypertension Surgical History (Updated 08/03/23 @ 12:32 by Kevin Gastelum MD) History of esophagogastroduodenoscopy (EGD) 12/2022 Dr. Ordoñez H/O breast biopsy History of repair of hiatal hernia Family History Mother TIA (transient ischemic attack) Father Hypertension Social History Smoking and tobacco/nicotine status: never used tobacco/nicotine Alcohol intake: never Substance/Drug Use: never Vitals/I&O/Wt Last Vital Signs Temp 97.3 F L 08/04/23 12:04 Pulse 88 08/04/23 12:04 Resp 19 H 08/04/23 12:04 BP 162/73 08/04/23 12:04 Pulse Ox 95 08/04/23 12:04 O2 Del Method Room Air 08/04/23 12:04 08/03/23 08/04/23 08/04/23 22:59 06:59 14:59 Intake Total 205 / 1820 1150 / 2970 870 / 870 Balance 205 / 1820 1150 / 2970 870 / 870 Weight last 48 hrs Weight 120 lb 14.4 oz Weight 123 lb 9 oz Weight 123 lb 6 oz Weight 125 lb Physical Exam Narrative: General : Patient is well developed , no acute distress, oriented x3 Head : Normal cephalic, a-traumatic. Nose : Mucous membranes are without erythema. Lungs : Equal chest rise bilaterally, no use of accessory muscles, trachea is midline. CV : Rate and rhythm are normal. Abdomen : Soft, ND, NT, no g/r/m Back : non-tender to palpation, no CVA tenderness. Data 08/04/23 04:32 08/04/23 04:32 Micro: Microbiology 08/03/23 06:50 Blood Culture - Preliminary Blood NEGATIVE TO DATE 08/03/23 06:50 Blood Culture - Preliminary Blood NEGATIVE TO DATE A&P Assessment and plan (1) Intractable nausea and vomiting: (2) Acute gastritis: Plan After complete history, physical examination and review of all available clinical data the following is my assessment. I think patient symptoms are most likely related with acute gastritis due to sudden discontinuation of PPI as well as use of NSAIDs. Additional laboratory workup did not show mild elevation of the alk phos but on retrospective review this has been present since 2019 and is going back to preadmission levels. Gallbladder workup was negative for acute cholecystitis. Minimal decrease in the gallbladder ejection fraction may suggest biliary dyskinesia but due to n.p.o. status of the patient at the time of HIDA scan the reliability of the test can be compromised due to over distention of the gallbladder. Therefore I think additional workup will be obtained once the patient is discharged to ensure adequate gallbladder function. At the moment I agree with medical management, rehydration, twice a day PPI. Patient can be restarted on Carafate 1 g liquid twice a day. My recommendation will be that upon discharge the patient receives twice a day PPI and twice a day Carafate for 4 to 6 weeks and then she can continue once a day PPI. She can follow-up with me as outpatient for further workup once this acute episode has resolved. No acute surgical intervention is indicated at this time. Coding Level of Care Code 82171 Diagnoses Intractable nausea and vomiting R11.2 Acute gastritis K29.00
[2023-08-04] MEDS: atorvastatin 40 mg Tablet PO (20:12)
--- NOTE | 2023-08-04 22:10 | P.PN_ITS ---
Subjective 2 Subjective: Still having emesis. Not keeping oral intake down. No right upper quadrant pain. Vitals/I&O/Wt Last Vital Signs Temp 98.5 F 08/04/23 19:53 Pulse 86 08/04/23 21:44 Resp 16 08/04/23 19:53 BP 150/69 08/04/23 19:53 Pulse Ox 93 08/04/23 19:53 O2 Del Method Room Air 08/04/23 19:53 08/04/23 08/04/23 08/04/23 06:59 14:59 22:59 Intake Total 1150 / 2970 870 / 870 1288.75 / 2158.75 Balance 1150 / 2970 870 / 870 1288.75 / 2158.75 Weight last 48 hrs Weight 54.839 kg Weight 56.047 kg Weight 55.962 kg Physical Exam 2 Narrative: Accompanied by family. Const: COMMON NORMALS: patient oriented x3 and alert GENERAL APPEARANCE: c ooperative ORIENTATION/CONSCIOUSNESS: Yes awake HENMT: COMMON NORMALS: oropharynx normal Neck/C-Spine: COMMON NORMALS: no JVD Resp: COMMON NORMALS: normal respiratory effort and clear to auscultation bilaterally AUSCULTATION: clear to auscultation bilaterally Cardio: COMMON NORMALS: no JVD, regular rhythm, S1 normal heart sound present, S2 normal heart sound present and No murmurs present (Cardio) RHYTHM: regular rhythm HEART SOUNDS: S1 normal heart sound present and S2 normal heart sound present GI: COMMON NORMALS: Normal to inspection, nondistended, normoactive bowel sounds present, Soft to palpation and non-tender PALPATION: Yes Soft to palpation OTHER: No right upper quadrant tenderness. Watt negative. Extremity: COMMON NORMALS: no joint enlargement and no pedal edema Neuro: COMMON NORMALS: patient oriented x3 and moves all extremities S ENSORIUM/ORIENTATION: Yes alert Skin: COMMON NORMALS: no rashes or lesions noted GENERAL SKIN EXAM: no rashes or lesions noted Data 08/04/23 04:32 08/04/23 04:32 Micro: Microbiology 08/03/23 06:50 Blood Culture - Preliminary Blood NEGATIVE TO DATE 08/03/23 06:50 Blood Culture - Preliminary Blood NEGATIVE TO DATE A&P Assessment and plan (1) Gastritis: (2) Intractable nausea and vomiting: (3) Thickening of wall of gallbladder: (4) Hypokalemia: (5) Dehydration: (6) Hypertension: Plan 78-year-old lady with a history of gastric ulceration, currently presenting with intractable nausea vomiting and abdominal discomfort. CT of the abdomen and pelvis shows prominent fluid in the stomach, concerning for gastritis. Incidental note made of gallbladder wall thickening, ultrasound of the gallbladder negative for cholecystitis or choledocholithiasis without any biliary dilatation. Patient does not have any transaminitis. Slightly elevated alkaline phosphatase. Unimproved today, still vomiting, not tolerating oral intake. Continue bowel rest, continue treatment of severe symptomatic complicated gastritis, PPI. Complicated by electrolyte abnormalities, hypokalemia, hypomagnesemia, inability to tolerate nutrition, inability to keep down medications. Reviewed vitals, CBC, CMP, folic acid, magnesium. Reviewed HIDA scan, discussed with her, discussed with the surgeon. Requested consultation. Appreciated. Lower chance of cholecystitis, does have some gallbladder wall thickening, does appear to have possible gallbladder dysmotility but test was done under suboptimal conditions where she was not able to have a meal. She is otherwise nontender, negative Watt. Continues empirically on ceftriaxone for now. Hypomagnesemia: Replace. Recheck magnesium. Hypokalemia: Received potassium replacement. Recheck chemistry. Continue with empiric ceftriaxone and metronidazole until cholecystitis is completely ruled out. High concerns for nausea and vomiting secondary to gastritis. Protonix 40 mg IV every 12 hours. Carafate ACHS. Start on clear liquid diet. Continue with normal saline along with D5 at 75 cc/h. Zofran as needed. Hypertension: amlodipine 10 mg daily. Continue with IV hydralazine 10 mg every 4 hours as needed for systolic blood pressure more than 160 mmHg. Vitamin B12 deficiency: Continue with IM cyanocobalamin replacement. CODE STATUS: DNR/DNI as per old documentation. Confirmed. Clear liquid diet Heparin 5000 every 12 hourly for DVT prophylaxis Protonix Attestations 2 Medical Necessity Statement*: Continue admission for assessment of management of persistent nausea and vomiting with gastritis, additional assessment gallbladder for possible gallbladder dysfunction, complicated by electrolyte abnormalities. and High MDM includes number and complexity of problems actively addressed during encounter and amount and/or complexity of data reviewed/ordered [ resulted lab(s)/test(s), ordered lab(s)/test(s) and other healthcare professional discussion] as documented Diagnoses Gastritis K29.70 Intractable nausea and vomiting R11.2 Thickening of wall of gallbladder K82.8 Hypokalemia E87.6 Dehydration E86.0 Hypertension I10
[2023-08-04] MEDS: acetaminophen 325 mg Tablet 650 MG PO (22:16)
[2023-08-05] MEDS: LORazepam 0.5 mg Tablet 0.25 MG PO ×2 (00:30→08:01)
[2023-08-05 00:51] VITALS: BP 140/81; PULSE 87; RESP 18; TEMP 36.9; O2SAT 96
[2023-08-05 04:56] LABS: Basophils # 0.1 10^3/uL (0.0-0.1); Basophils % 0.6 %; Eosinophils # 0.1 10^3/uL (0.0-0.8); Eosinophils % 1.1 %; Hematocrit 37.5 % (36-47); Lymphocytes # 2.4 10^3/uL (0.8-4.8); Lymphocytes % 21.5 %; Mean Corpuscular HGB Conc 33.9 g/dL (30-55); Mean Corpuscular Hemoglobin 27.5 pg (27-33); Mean Corpuscular Volume 81.2 fl (85-98); Monocytes % 8.8 %; Neutrophils # 7.55 10^3/uL (1.8-7.7); Neutrophils % 67.6 %; Nucleated Red Blood Cells % 0 %; Platelet Count 375 10^3/cmm (157-399); Red Blood Count 4.62 10^6/uL (3.85-5.65); Red Cell Distribution Width 14.1 % (12.1-15.1); White Blood Count 11.16 10^3/uL (3.29-11.43)
[2023-08-05 05:03] VITALS: BP 145/87; PULSE 82; RESP 19; TEMP 36.9; O2SAT 98
[2023-08-05] MEDS: cefTRIAXone 1,000 MG in sodium chloride 0.9% (plus) 50 ML 100 MG IV (05:17)
[2023-08-05 05:18] LABS: Alanine Aminotransferase 8 U/L (0-33); Albumin Level 3.6 g/dL (3.5-5.2); Alkaline Phosphatase 196 U/L (35-105); Aspartate Amino Transferase 15 U/L (0-32); Blood Urea Nitrogen 5 mg/dL (8-23); Calcium 8.4 mg/dL (8.5-10.5); Carbon Dioxide 17 mmol/L (22-29); Chloride 104 mmol/L (98-107); Creatinine Clr Calc Pharmacy 49.0981; Glucose 109 mg/dL (65-115); Osmolality Calculated 278 mOsm/kg (285-295); Sodium 135 mmol/L (136-145); Total Bilirubin 0.7 mg/dL (0.15-1.2); Total Protein 6.6 g/dL (6.6-8.7)
[2023-08-05 05:19] LABS: Anion Gap 16.6 (5-19); Magnesium 1.8 mg/dL (1.7-2.3)
[2023-08-05 05:21] LABS: Potassium 2.6 mmol/L (3.5-5.1)
[2023-08-05] MEDS: metroNIDAZOLE IV 500 MG/100 ML PREMIX 100 MG IV (06:12)
[2023-08-05] MEDS: sucralfate 1 gm/10 mL Oral Liq UDC PO ×2 (06:12→10:56)
[2023-08-05] MEDS: lidocaine 1% 5 ML in potassium chloride premix 100 ML 26.25 ML IV ×2 (06:32→10:36)
[2023-08-05] MEDS: TRAMadol 50 mg Tablet PO (07:16)
[2023-08-05] MEDS: levothyroxine 50 mcg Tablet PO (08:28)
[2023-08-05] MEDS: amlodipine 5 mg Tablet 10 MG PO (08:28)
[2023-08-05] MEDS: cyanocobalamin 1,000 mcg/mL SDV 1000 MCG IM (08:28)
[2023-08-05] MEDS: escitalopram 10 mg Tablet 20 MG PO (08:28)
[2023-08-05 08:33] VITALS: BP 182/91; PULSE 87; RESP 18; TEMP 36.4; O2SAT 96
[2023-08-05] MEDS: dextrose 5%-sod chloride 0.9% 1,000 ML 75 ML IV (09:03)
--- NOTE | 2023-08-05 10:02 | PC.CHAP ---
Pastoral Care Encounter/Spiritual Assessment Type of Contact [] Declined manufacturing engineer visit [] Patient/Family/Request visit [] Outpatient visit [] Follow-up visit [] Physician referral [] Code/Alert [] Routine visit [] Staff referral [] Actively dying [] Patient sleeping [] Family support [] [] Out of room [] Palliative care [] [X] Receiving care in room [] Pre-surgical visit [] Trauma [] Long length of stay [] ICU visit [] Other: Relational/Emotional Strength [] Patient feels connected with others/family/visitors/staff [] Distress [] Loneliness/isolation [] Abandonment Spirituality of Patient [] Person of [place] [] Attends Quaker of their [place] [] Believes in Prayer [] Reads Bible or Roman Catholic materials [] There are Spiritual issues to be addressed Title Officer Interventions [] Prayer [] Active listening [] Non-anxious presence [] Spiritual/emotional support [] Crisis/trauma care [] Spiritual counseling [] Bereavement support [] Provided bereavement packet [] Provided Bible/devotional materials [] Provided toy/stuffed animal, coloring book to patient or family member [] Provided Communion [] Anointing/[place] [] Salvation [] Completed spiritual assessment [] Other: Impact on Illness or Injury [] Angry [] Fearful [] Anxious [] Often cries [] Exhaustion [] Unable to work [] Unable to attend baptism [] Unable to walk/stand [] Unable to read [] Unable to drive [] Unable to eat/drink [] Unable to sleep [] Unable to be with family [] Patient intubated [] Other: Summary Time spent with patient
[2023-08-05] MEDS: magnesium sulfate premix 1 GM/100 ML PIGGYBACK IV (10:46)
[2023-08-05] MEDS: acetaminophen 325 mg Tablet 650 MG PO (10:55)
[2023-08-05] MEDS: pantoprazole 40 mg SDV IVP (11:27)
[2023-08-05 11:34] VITALS: BP 148/78; PULSE 92; RESP 18; TEMP 36.4; O2SAT 94
--- NOTE | 2023-08-05 12:31 | P.DS_ITS ---
Discharge Providers Date of Admission: 08/04/23 12:21 Date of Discharge: August 05, 2023 Attending Provider at Admission: Tigist Lo MD Attending Provider at Discharge: Stanislaw Gale Primary Care Provider: Alfred Chambers MD Diagnoses at Discharge Discharge Diagnosis (1) Gastritis: Status: Resolved (2) Intractable nausea and vomiting: Status: Acute (3) Thickening of wall of gallbladder: Status: Acute (4) Hypokalemia: Status: Resolved (5) Dehydration: Status: Acute (6) Hypertension: Status: Acute Reason for Visit Reason for Visit: n/v, chest pain Hospital Course Hospital Course Pleasant 78-year-old lady with long history of chronic back pain, previously NSAID use, history of GI bleed, gastritis on EGD, had not been taking NSAIDs since then, has been on Protonix twice daily but has ran out of her prescrip tion. Presented with nausea vomiting and abdominal discomfort. Admitted for treatment of gastritis with suggestion also on CT abdomen pelvis. Incidentally also noted to have mild gallbladder wall thickening, ultrasound with same, without pericholecystic edema, but with dilated gallbladder. Was treated for gastritis bowel rest, IV PPI, sucralfate, gentle IV hydration, replacement of electrolytes including potassium, medium. Zofran as needed for nausea. Continued on antihypertensives while in the hospital. Amlodipine was transiently adjusted up to 10 mg. Please reassess blood pressures make permanent changes needed on return to baseline and/or if further escalation of antihypertensive regimen is necessary. Further assessment of the gallbladder was obtained with HIDA scan, without cys tic or common bile duct obstruction, gallbladder did fill with contrast, her, ejection fraction noted abnormal at 28%, normal 35-75%. She did not have any right upper quadrant tenderness, Watt negative. Did have some persistence of nausea and vomiting. Surgical consultation was obtained due to equivocal findings, questionable gallbladder dysfunction, although HIDA scan also performed under suboptimal conditions with her having nausea and vomiting and not tolerating adequate prep/meal beforehand. As per surgical assessment she will continue on medications for treatment of gastritis, she is doing better today and tolerating oral intake with clear liquids, no further vomiting, and is asked to follow-up with surgery and primary provider for reassessment of gallbladder, consideration of repeat studies to assess for gallbladder dysfunction, as well as reassessment for improvement/resolution of gastritis. Moderate to large hiatal hernia. Incidental findings on CT including moderate constipation, left kidney cyst, negative for follow-up, diverticulosis. Emphysematous changes. Physical Exam Const: COMMON NORMALS: patient oriented x3 and alert GENERAL APPEARANCE: cooperative ORIENTATION/CONSCIOUSNESS: Yes awake HENMT: COMMON NORMALS: oropharynx normal Neck/C-Spine: COMMON NORMALS: no JVD Resp: COMMON NORMALS: normal respiratory effort and clear to auscultation bilaterally AUSCULTATION: clear to auscultation bilaterally Cardio: COMMON NORMALS: no JVD, regular rhythm, S1 normal heart sound present, S2 normal heart sound present and No murmurs present (Cardio) RHYTHM: regular rhythm HEART SOUNDS: S1 normal heart sound present and S2 normal heart sound present GI: COMMON NORMALS: Normal to inspection, nondistended, normoactive bowel sounds present, Soft to palpation and non-tender PALPATION: Yes Soft to palpation OTHER: No right upper quadrant tenderness. Watt negative. Extremity: COMMON NORMALS: no joint enlargement and no pedal edema Neuro: COMMON NORMALS: patient oriented x3 and moves all extremities SENSORIUM/ORIENTATION: Yes alert Skin: COMMON NORMALS: no rashes or lesions noted GENERAL SKIN EXAM: no rashes or lesions noted Discharge Data Studies Completed and Pending Completed Studies During Hospitalization Category Date Time Status CT abdomen pelvis w con* [id number] Stat Cat Scan 08/02/23 20:13 Completed XR chest 1V portable [id number] Stat Exams 08/02/23 18:59 Completed NM hepatobiliary w phar* [id number] Routine Nuc Med 08/04/23 12:31 Completed US abdomen limited [id number] Routine Ultrasound 08/03/23 05:54 Completed Pending at discharge Category Date Time Status Blood Culture Stat Lab 08/03/23 06:50 Results Complete Blood Count w/Auto AM LABS Lab 08/06/23 04:00 Ordered Complete Blood Count w/Auto AM LABS Lab 08/07/23 04:00 Ordered Comprehensive Metabolic Panel AM LABS Lab 08/06/23 04:00 Ordered Comprehensive Metabolic Panel AM LABS Lab 08/07/23 04:00 Ordered MAG [Magnesium] AM LABS Lab 08/06/23 04:00 Ordered Radiology Impressions Chest X-Ray 08/02/23 18:59 IMPRESSION: 1. Mild cardiomegaly. 2. Hiatal hernia suspected. 3. Emphysematous changes. 4. Left lower lobe atelectasis versus minimal infiltrate. 5. Right upper lobe calcified granuloma. Abdomen/Pelvis CT 08/02/23 20:13 IMPRESSION: 1. Prominent fluid in the stomach, please correlate for gastritis. 2. Moderate constipation. 3. Diverticulosis without diverticulitis. 4. Left kidney cysts, negative for follow up. 5. Emphysematous changes. 6. Moderate to large hiatal hernia. 7. Mild gallbladder wall thickening suspected, ultrasound could further evaluate this. Abdomen Ultrasound 08/03/23 05:54 IMPRESSION: Nonspecific gallbladder wall thickening without pericholecystic edema or gallstones. No biliary ductal dilatation. Findings are not typical of acute cholecystitis. If there is persistent clinical concern, consider HIDA scan. Laboratory Results WBC 11.16 10^3/uL (3.29-11.43) 08/05/23 04:30 RBC 4.62 10^6/uL (3.85-5.65) 08/05/23 04:30 Hgb 12.70 g/dL (11.27-16.99) 08/05/23 04:30 Hct 37.5 % (36-47) 08/05/23 04:30 MCV 81.2 fl (85-98) L 08/05/23 04:30 MCH 27.5 pg (27-33) 08/05/23 04:30 MCHC 33.9 g/dL (30-55) 08/05/23 04:30 RDW 14.1 % (12.1-15.1) 08/05/23 04:30 Plt Count 375 10^3/cmm (157-399) 08/05/23 04:30 MPV 9.0 fL (7.4-10.4) 08/05/23 04:30 Neut % (Auto) 67.6 % 08/05/23 04:30 Lymph % (Auto) 21.5 % 08/05/23 04:30 [place] % (Auto) 8.8 % 08/05/23 04:30 Eos % (Auto) 1.1 % 08/05/23 04:30 Baso % (Auto) 0.6 % 08/05/23 04:30 Neut # (Auto) 7.55 10^3/uL (1.8-7.7) 08/05/23 04:30 Lymph # (Auto) 2.4 10^3/uL (0.8-4.8) 08/05/23 04:30 [place] # (Auto) 1.0 10^3/uL (0.2-0.9) H 08/05/23 04:30 Eos # (Auto) 0.1 10^3/uL (0.0-0.8) 08/05/23 04:30 Baso # (Auto) 0.1 10^3/uL (0.0-0.1) 08/05/23 04:30 Nucleated RBC % (auto) 0 % 08/05/23 04:30 Nucleated RBCs # 0.0 /100WBC 08/05/23 04:30 PT 12.50 SECONDS (12.1-14.9) 08/02/23 19:26 INR 0.91 (0.8-1.2) 08/02/23 19:26 Sodium 135 mmol/L (136-145) L 08/05/23 04:30 Potassium 2.6 mmol/L (3.5-5.1) L* 08/05/23 04:30 Chloride 104 mmol/L (98-107) 08/05/23 04:30 Carbon Dioxide 17 mmol/L (22-29) L 08/05/23 04:30 Anion Gap 16.6 (5-19) 08/05/23 04:30 BUN 5 mg/dL (8-23) L 08/05/23 04:30 Creatinine 0.8 mg/dL (0.5-0.9) 08/05/23 04:30 GFR Calculation Not Reportable 08/05/23 04:30 Glucose 109 mg/dL (65-115) 08/05/23 04:30 Calculated Osmolality 278 mOsm/kg (285-295) L 08/05/23 04:30 Calcium 8.4 mg/dL (8.5-10.5) L 08/05/23 04:30 Magnesium 1.8 mg/dL (1.7-2.3) 08/05/23 04:30 Iron 36 ug/dL (37-145) L 08/03/23 01:23 TIBC 294 mcg/dl 08/03/23 01: % Saturation 12.2 % (20-50) L 08/03/23 01:23 Unsat Iron Binding 258 ug/dL (112-347) 08/03/23 01:23 Total Bilirubin 0.7 mg/dL (0.15-1.2) 08/05/23 04:30 AST 15 U/L (0-32) 08/05/23 04:30 ALT 8 U/L (0-33) 08/05/23 04:30 Alkaline Phosphatase 196 U/L (35-105) H 08/05/23 04:30 Troponin T Baseline 8 ng/L (0-10) 08/02/23 19:26 Troponin T 120 Minute 8.64 ng/L (0-10) 08/02/23 22:58 Delta Troponin T 0.64 ABS# (0-10) 08/02/23 22:58 Troponin T Hi Sens 6Hr 10.68 ng/L (0-10) H 08/03/23 01:23 Troponin T Hi Sens 6Hr Delta 2.68 ng/L (0-12) 08/03/23 01:23 Total Protein 6.6 g/dL (6.6-8.7) 08/05/23 04:30 Albumin 3.6 g/dL (3.5-5.2) 08/05/23 04:30 Globulin 3.0 g/dL (1.3-4.6) 08/05/23 04:30 Triglycerides 79 mg/dL (0-150) 08/04/23 04:32 Cholesterol 131 mg/dL (0-200) 08/04/23 04:32 LDL Cholesterol, Calc 60 mg/dL (50-129) 08/04/23 04:32 Total VLDL Cholesterol 16 mg/dL (0-30) 08/04/23 04:32 HDL Cholesterol 55 mg/dL (60-100) L 08/04/23 04:32 Cholesterol/HDL Ratio 2.38 mg/dL (0.0-4.40) 08/04/23 04:32 Lipase 56 U/L (13-60) 08/02/23 19:26 Vitamin B12 227 pg/mL (232-1245) L 08/03/23 01:23 Folate 6.8 ng/mL (4.8-37.3) 08/04/23 04:32 TSH 0.63 uIU/mL (0.27-4.20) 08/03/23 01:23 Urine Color Straw (Yellow) 08/02/23 21:30 Urine Appearance Clear (CLEAR) 08/02/23 21:30 Urine pH 8 (5-7) H 08/02/23 21:30 Ur Specific [place] 1.010 (1.005-1.030) 08/02/23 21:30 Urine Protein Neg (Negative) 08/02/23 21:30 Urine Glucose (UA) Norm (Normal) 08/02/23 21:30 Urine Ketones Negative (Negative) 08/02/23 21:30 Urine Blood Neg (Negative) 08/02/23 21:30 Urine Nitrate Negative (Negative) 08/02/23 21:30 Urine Bilirubin Neg (Negative) 08/02/23 21:30 Prot Sulfosalicylic Acd Negative (Negative) 08/02/23 21:30 Urine Urobilinogen Neg mg/dL (Negative) 08/02/23 21:30 Ur Leukocyte Esterase Negative (Negative) 08/02/23 21:30 Vitals Last Vital Signs Temp 97.5 F L 08/05/23 11:34 Pulse 92 08/05/23 11:34 Resp 18 08/05/23 11:34 BP 148/78 08/05/23 11:34 Pulse Ox 94 08/05/23 11:34 O2 Del Method Room Air 08/05/23 11:34 Discharge Plan Discharge Patient Disposition: Home Condition: Stable Prescriptions: New sucralfate 100 mg/mL Suspension 1 g PO BID 42 Days Qty: 840 0RF Continued tramadol 50 mg tablet 50 mg PO Q6H PRN (Reason: Pain) 7 Days Qty: 28 0RF pantoprazole [Protonix] 40 mg tablet,delayed release (DR/EC) 40 mg PO BID 30 Days Qty: 60 5RF amlodipine 5 mg Tablet 5 mg PO DAILY escitalopram oxalate 20 mg Tablet 20 mg PO DAILY metoclopramide HCl [Reglan] 10 mg Tablet 10 mg PO TID PRN (Reason: Nausea) Rx Instructions: take this medicine 1/2 hour before a meal. lorazepam 0.5 mg tablet 0.25 mg PO TID potassium chloride 10 mEq capsule, extended release 10 meq PO BID simvastatin 10 mg tablet 10 mg PO BEDTIME levothyroxine [Synthroid] 50 mcg Tablet 50 mcg PO DAILY Discharge Orders: Discharge Order (Routine); Ordered 08/05/23 Ordered By: Stanislaw Gale Referrals: Jose Alfredo Ordoñez MD [Physician] - 7-10 days (We have notified your physician's clinic of the need for a follow-up appointment to be scheduled. If you have not heard from them within the next 2 business days, please call them directly. ) Wilton Haley MD [Physician] - 08/14/23 8:00 am (This is a new patient appointment to establish w/ a new primary care provider per patient request. ) Discharge Diet: Advance as tolerated and Clear Liquid Patient Instructions: Sucralfate (By mouth), Gastritis (DC), Dehydration (DC), Potassium Content of Foods List (GEN), Opioid Safety Activity Restrictions/Additional Instructions: Follow-up with your primary doctor for reassessment of gastritis. Continue pantoprazole as well as sucralfate. Follow-up with general surgery for reassessment as well as for assessment of gallbladder, consideration of further testing after, as discussed recently gallbladder was not shawn quite well, although this may have been due to inadequate preparation for the test and you being unable to have a good meal before the test. The goal will be to consider further whether there may be gallbladder dysfunction which may require additional assessment and if confirmed may possibly be treated with removal of the gallbladder. Follow-up with your primary doctor and surgery to further discuss and reassess. Advance diet gradually from liquid as long as you are tolerating small amounts. Avoid NSAIDs, continue pantoprazole and sucralfate. Have your primary doctor recheck your chemistry as well as you did receive p otassium supplementation while in the hospital. Continue potassium after discharge, include potassium rich foods in your diet. You have a doctor follow- up your magnesium level as well which was mildly low and for which she received replacement while in the hospital. Discharge Attestations Time Spent in Discharge Care*: greater than 30 min Quality Metrics Clinical Quality Measures [ No reported AMI, CVA or VTE this stay] Coding Level of Care Code 82147 Diagnoses Gastritis K29.70 Intractable nausea and vomiting R11.2 Thickening of wall of gallbladder K82.8 Hypokalemia E87.6 Dehydration E86.0 Hypertension I10
== END 2023-08-05 15:02 | disposition home or self-care (01) | DRG 392 ==
LOC: ER 21:17 → MEDSURG 21:41
PROVIDERS: Student in an Organized Health Care Education/Training Program; Admitting Provider Student in an Organized Health Care Education/Training Program; Emergency Provider Emergency Medicine; PCP Family Medicine; Visit Provider Internal Medicine
DX: K29.70 Gastritis, unspecified, without bleeding (principal); K44.9 Diaphragmatic hernia without obstruction or gangrene; E87.6 Hypokalemia; E86.0 Dehydration; I10 Essential (primary) hypertension; E53.8 Deficiency of other specified B group vitamins; Z79.1 Long term (current) use of non-steroidal anti-inflammatories (NSAID); E83.42 Hypomagnesemia; M54.9 Dorsalgia, unspecified; G89.29 Other chronic pain; K21.9 Gastro-esophageal reflux disease without esophagitis; E03.9 Hypothyroidism, unspecified; F41.9 Anxiety disorder, unspecified
CPT/HCPCS: 36415; 71045; 74177; 76705; 78227; 80053; 80061; 81003; 82607; 82746; 83540; 83550; 83690; 83735; 84132; 84443; 84484; 85025; 85610; 87040; 90471; 90732; 93005; 96372; 96374; 96375; 99285; A9537; C9113; G0378; J0360; J0696; J2405; J3420; J3475; J3480; J3490; J7030; J7042; Q9967

== ENCOUNTER → 2023-08-19 13:01 | Outpatient (BNVA) | payer MEDICARE, SELFPAY | PROVIDERS: PCP Family Medicine Adult Medicine; Visit Provider Surgery | DX: Z09 Encounter for follow-up examination after completed treatment for conditions other than malignant neoplasm (principal) | CPT/HCPCS: 99213 ==

== ENCOUNTER → 2023-10-01 12:45 | Outpatient (BNVA) | payer MEDICARE, SELFPAY | PROVIDERS: PCP Family Medicine Adult Medicine; Visit Provider Surgery | DX: Z09 Encounter for follow-up examination after completed treatment for conditions other than malignant neoplasm (principal); R03.0 Elevated blood-pressure reading, without diagnosis of hypertension | CPT/HCPCS: 99213 ==

== ENCOUNTER → 2023-10-29 13:20 | Outpatient (BNVA) | payer MEDICARE, SELFPAY | PROVIDERS: PCP Family Medicine Adult Medicine; Visit Provider Surgery | DX: Z09 Encounter for follow-up examination after completed treatment for conditions other than malignant neoplasm (principal) | CPT/HCPCS: 99213 ==

== ENCOUNTER → 2024-06-15 11:04 | Outpatient (BNVA) | payer MEDICARE, SELFPAY | PROVIDERS: PCP Family Medicine; Visit Provider Family Medicine | DX: I10 Essential (primary) hypertension (principal); E03.9 Hypothyroidism, unspecified | CPT/HCPCS: 80053; 80061; 82043; 84443; 85025 ==

== ENCOUNTER → 2024-10-04 16:58 | Outpatient (BNVA) | payer MEDICARE, SELFPAY | PROVIDERS: PCP Family Medicine | DX: I10 Essential (primary) hypertension (principal); R30.0 Dysuria | CPT/HCPCS: 81000; 82043; 87086 ==

== ENCOUNTER → 2025-02-04 10:02 | Outpatient (BNVA) | payer MEDICARE, SELFPAY | PROVIDERS: PCP Family Medicine; Visit Provider Family Medicine | DX: I10 Essential (primary) hypertension (principal); E03.9 Hypothyroidism, unspecified; R30.0 Dysuria | CPT/HCPCS: 80053; 84439; 84443; 87086 ==